=== PATIENT | female | born 1950 | race Caucasian/White ===

== ENCOUNTER 2018-03-11 18:29 | Inpatient (IN) | payer MEDICARE, BC ==
--- NOTE | 2018-03-11 18:32 | ED Physician Chart ---
ED Chief Complaint/HPI - Patient Information Date Seen:: 03/11/18 Time Seen:: 18:15 Chief Complaint:: Agitation History of Present Illness:: onset x 2 days of agitation, and aggressive behavior; no report of trauma, SIs, H/As, S/T, neck pain, cough, C/P, SOB, Abd. Pain, A/N/V/D/C, fever, chills, or urinary s/s Historian:: Patient, EMS Review:: Nurse's Note Reviewed, Old Chart Reviewed, EMS run form Reviewed ED Review of Systems - Review of Systems General/Constitutional: No fever, No chills, No weight loss, No weakness, No diaphoresis, No edema, No loss of appetite Skin: No skin lesions, No rash, No bruising Head: No headache, No light-headedness Eyes: No loss of vision, No pain, No diplopia ENT: No earache, No nasal drainage, No sore throat, No tinnitus Neck: No neck pain, No swelling, No thyromegaly, No stiffness, No mass noted Cardio Vascular: No chest pain, No palpitations, No PND, No orthopnea, No edema Pulmonary: No SOB, No cough, No sputum, No wheezing GI: No nausea, No vomiting, No diarrhea, No pain, No melena, No hematochezia, No constipation, No hematemesis G/U: No dysuria, No frequency, No hematuria, No nacturia Sizer Hand: No vaginal discharge, No abnormal vaginal bleed, No contraction Musculoskeletal: No bone or joint pain, No back pain, No muscle pain Endocrine: No polyuria, No polydipsia Psychiatric: Prior psych history, Depression, Anxiety, No suicidal ideation, No homicidal ideation, No auditory hallucination, No visual hallucination Hematopoietic: No bruising, No lymphadenopathy Allergic/Immuno: No urticaria, No angioedema Neurological: No syncope, No focal symptoms, No weakness, No paresthesia, No headache, No seizure, No dizziness, Confusion, No vertigo ED Past Medical History - Past Medical History Obtainable: Yes Past Medical History: HTN, Dyslipidemia, Thyroid disorder, Arthritis, Dementia Family History: HTN Social History: Non Smoker, No Alcohol, No Drug Use, Single, Care Facility Surgical History: None Psychiatricy History: Depression, Bipolar, Dementia Medication: Reviewed Family Medical History - Family Member Mother History Unknown: Yes ED Physical Exam - Physical Examination General/Constitutional: Awake, Well-developed, well-nourished, Alert, No distress, GCS 15, Non-toxic appearing, Ambulatory Head: Atraumatic Eyes: Lids, conjuctiva normal, PERRL, EOMI Skin: Nl inspection, No rash, No skin lesions, No ecchymosis, Well hydrated, No lymphadenopathy ENMT: External ears, nose nl, TM canals nl, Nasal exam nl, Lips, teeth, gums nl , Oropharynx nl, Tonsils nl Neck: Nontender, Full ROM w/o pain, No JVD, No nuchal rigidity, No bruit, No mass, No stridor Respiratory: Nl effort/Exclusion, Clear to Auscultation, No Wheeze/Rhonchi/Rales Cardio Vascular: RRR, No murmur, gallop, rubs, NL S1 S2, Carotid/Femoral/Distal pulses equal bilaterally GI: No tenderness/rebounding/guarding, No organomegaly, No hernia, Normal BS's, Nondistended, No mass/bruits, No McBurney tenderness : No CVA tenderness Extremities: No tenderness or effusion, Full ROM, normal strength in all extremities, No edema, Normal digits & nails Neuro/Psych: Alert/oriented, DTR's symmetric, Normal sensory exam, Normal motor strength, Judgement/insight normal, Mood normal, Normal gait, No focal deficits Other Neuro/Psych comments:: + Psychomotor Agitation; no SIs; Mood/Affect: Labile Misc: Normal back, No paraspinal tenderness ED Labs/Radiology/EKG Results - Lab Results Comments:: Reviewed - EKG Interpretations EKG Time:: 19:59 Rate & Rhythm: 81; NSR Comments:: RAD; non-specific st-t changes ED Septic Shock - . Is Septic Shock (SBP<90, OR Lactate>4 mmol\L) present?: No ED Reassessment (Disposition) - Reassessment Reassessment Condition:: Improved - Diagnosis Diagnosis:: Agitation; Medical Clearance; Anemia; Dementia; Bipolar Disorder - Aftercare/Follow up Instructions Aftercare/Follow-Up Instructions:: Counseled pt regarding lab results/diagnosis & need follow up, Counseled pt & family regarding lab results/diagnosis & need follow up - Patient Disposition Discharge/Transfer:: Acute Care w/in this hosp Admitted to:: [facility] Condition at Disposition:: Stable, Improved
[2018-03-11] MEDS ORDERED: Haloperidol Lactate 5 mg/mL 1mL Vial IM STA ×2 (18:44→21:01)
[2018-03-11] MEDS ORDERED: Haloperidol Lactate 5 mg/mL 1mL Vial ONE ×2 (18:57→21:22)
[2018-03-11 21:06] LABS: ACETAMINOPHEN < 10.0 ug/mL (10.0-30.0); ALB/GLOB RATIO 1.6 (1.0-1.8); ALBUMIN 3.5 gm/dL (3.7-5.3); ALKALINE PHOSPHATASE 102 U/L (34-104); ANION GAP 12.7 (7.0-16.0); BILIRUBIN,TOTAL 0.4 mg/dL (0.3-1.0); BUN - UREA NITROGEN 17 mg/dL (7-25); CALCIUM SERUM 9.1 mg/dL (8.6-10.3); CARBON DIOXIDE 30.5 mEq/L (21.0-31.0); CHLORIDE 103 mEq/L (98-107); CHOLESTEROL 171 mg/dL (<200); CREATININE - SERUM 1.1 mg/dL (0.6-1.2); GFR AFRICAN-AMERICAN > 60.0 ml/min (>90); GFR NON AFRICAN-AMERICAN 52.5 ml/min; GLUCOSE 102 mg/dL (70-105); HDL -HIGH DENSITY LIPOPROTEIN 61 mg/dL (23-92); POTASSIUM SERUM 4.2 mEq/L (3.5-5.1); SALICYLATES (ASPIRIN) < 25.0 mg/L (30.0-100.0); SGOT 28 U/L (13-39); SGPT/ALT 20 U/L (7-52); SODIUM SERUM 142 mEq/L (136-145); TOTAL PROTEIN,SERUM 5.7 gm/dL (6.0-8.3); TRIGLYCERIDES 73 mg/dL (<150)
[2018-03-11 21:15] LABS: HEMATOCRIT 34.9 % (41.0-60); HEMOGLOBIN 11.9 gm/dL (12-16); MEAN CELL VOLUME 93.1 fl (81-100); RED BLOOD COUNT 3.75 Mil/cmm (3.80-5.20); WHITE BLOOD COUNT 8.5 Th/cmm (4.8-10.8)
[2018-03-11 21:16] LABS: % LYMPHOCYTES 17.5 % (20.0-50.0); % MONOCYTES 6.2 % (2.0-10.0); % NEUTROPHILS 74.3 % (40.0-80.0); MEAN CORPUSCULAR HEMOGLOBIN 31.7 pg (27.0-31.0); MEAN PLATELET VOLUME 7.5 fl; PLATELET COUNT 356 Th/cmm (150-400); RED CELL DISTRIBUTION WIDTH 12.2 % (11.5-20.0)
[2018-03-11 23:30] VITALS: BP 146/73
[2018-03-11] MEDS ORDERED: Non-Formulary Item 1 EA (Acetaminophen [Pain Reliever] 650 MG) PO PRN (23:54)
[2018-03-12] MEDS: Levothyroxine 0.05 Mg Tab PO SCH (06:50)
[2018-03-12] MEDS: Pantoprazole 40 mg EC Tab PO SCH (08:33)
--- NOTE | 2018-03-12 08:53 | History and Physical ---
History of Present Illness - HPI Chief Complaint: Agitation HPI: 67 y/o female who presents to [facility] ER for increased agitation noted at the SNF. Patient was found to have increased aggressive behavior in the past 2 days. She was subsequently sent for further evaluation and treatment. Patient has a previous medical history of HTN, Dyslipidemia, Thyroid disorder, Arthritis, Dementia, Depression, Bipolar disorder. Initial Labwork revealed the following ... WBC 8.5 H/H 11.9/34.9 plat 356K Na 142 K 4.2 Bun/Cr 17/1.1 glu 102 Patient was subsequently admitted to [facility] for further evaluation and treatment. Vital Signs: Last Vital Signs Temp 98.6 F 03/11/18 23:25 Pulse 69 03/11/18 23:25 Resp 20 03/11/18 23:25 BP 146/73 03/11/18 23:30 Pulse Ox 96 03/11/18 23:25 Past Medical History Cardiovascular: Report: HTN, Hyperlipidemia Pulmonary: Report: No Pertinent Hx FLOUR BLENDER: Report: Dementia GI: Report: No Pertinent Hx Psych: Report: Bipolar, Depression Musculoskeletal: Report: Osteoarthritis Infectious Disease: Report: No Pertinent Hx Renal/: Report: No Pertinent Hx Endocrine: Report: Hypothyroidism Dermatology: Report: No Pertinent Hx - Past Surgical History Past Surgical History: No pertinent Hx Family Medical History - Family Member Mother History Unknown: Yes Social History Smoke: No Alcohol: None Drugs: None Lives: [facility]dc - Medications Home Medications: Home Medication Medication Instructions Recorded Type Acetaminophen [Pain Reliever] 650 mg PO Q8H PRN 03/11/18 History Atorvastatin Calcium [Lipitor] 10 mg PO HS 03/11/18 History Cholecalciferol (Vitamin D3) 5,000 unit PO DAILY 03/11/18 History [Vitamin D3] Folic Acid [Folate*] 1 mg PO DAILY 03/11/18 History Levothyroxine Sodium [Levoxyl] 50 mcg PO DAILY 03/11/18 History Lorazepam [Ativan] 0.5 mg PO Q8H PRN 03/11/18 History Melatonin 5 mg PO HS 03/11/18 History Pantoprazole [Protonix] 40 mg PO DAILY 03/11/18 History QUEtiapine Fumarate [SEROquel] 25 mg PO HS 03/11/18 History Sennosides A and B [Senna] 2 tab PO HS 03/11/18 History Tramadol HCl [Ultram] 50 mg PO BID 03/11/18 History Zolpidem Tartrate [Ambien] 5 mg PO HS 03/11/18 History Acetaminophen [Tylenol] 2 tab PO Q8HR PRN 03/12/18 History Aspirin [Ecotrin] 81 mg PO DAILY 03/12/18 History - Allergies Allergies/Adverse Reactions: Allergies Allergy/AdvReac Type Severity Reaction Status Date / Time No Known Allergies Allergy Verified 03/11/18 18:32 Review of Systems - Review of Systems Constitutional: Report: No Significant Eyes: Report: No Significant ENT: Report: No Significant Respiratory: Report: No Significant Cardiovascular: Report: No Significant Gastrointestinal: Report: No Significant Genitourinary: Report: No Significant Musculoskeletal: Report: No Significant Skin: Report: No Significant Neurological: Report: Confusion Physical Exam - Physical Exam HEENT: Report: Ears Nose Throat within normal limits, Pharnyx within normal limits Neck: Report: Within normal limits Cardiovascular Systems: Report: +s1/s2 noted, Regular, Rate and Rhythm Respiratory: Report: Breath Sounds are within normal limits, Clear to Auscultation of lung marks Abdomen: Report: Non-tender to palpation Back: Report: Inspection of back is within normal limits. Extremities: Report: Non-tender to palpation. Skin: Report: Color of skin is within normal limits Neuro/Psych: Report: Mood affect is within normal limits, A+Ox3 - Lab Results All Lab Results last 24 hours: Laboratory Results - last 24 hr 03/11/18 03/11/18 03/11/18 20:44 20:44 20:44 WBC 8.5 RBC 3.75 L Hgb 11.9 L Hct 34.9 L MCV 93.1 MCH 31.7 H MCHC Differential 34.0 RDW 12.2 Plt Count 356 MPV 7.5 Neutrophils % 74.3 Lymphocytes % 17.5 L Monocytes % 6.2 Eosinophils % 1.0 Basophils % 1.0 Sodium 142 Potassium 4.2 Chloride 103 Carbon Dioxide 30.5 Anion Gap 12.7 BUN 17 Creatinine 1.1 Est GFR ( Amer) > 60.0 Est GFR (Non-Af Amer) 52.5 BUN/Creatinine Ratio 15.5 Glucose 102 Calcium 9.1 Total Bilirubin 0.4 AST 28 ALT 20 Alkaline Phosphatase 102 Troponin I Total Protein 5.7 L Albumin 3.5 L Globulin 2.2 Albumin/Globulin Ratio 1.6 Triglycerides 73 Cholesterol 171 LDL Cholesterol Direct 104 HDL Cholesterol 61 TSH 4.32 Salicylates < 25.0 L Acetaminophen < 10.0 L Ethyl Alcohol < 10 03/11/18 20:44 WBC RBC Hgb Hct MCV MCH MCHC Differential RDW Plt Count MPV Neutrophils % Lymphocytes % Monocytes % Eosinophils % Basophils % Sodium Potassium Chloride Carbon Dioxide Anion Gap BUN Creatinine Est GFR ( Amer) Est GFR (Non-Af Amer) BUN/Creatinine Ratio Glucose Calcium Total Bilirubin AST ALT Alkaline Phosphatase Troponin I 0.01 Total Protein Albumin Globulin Albumin/Globulin Ratio Triglycerides Cholesterol LDL Cholesterol Direct HDL Cholesterol TSH Salicylates Acetaminophen Ethyl Alcohol - Assessment Assessment: psychosis HTN Dyslipidemia Thyroid disorder Arthritis Dementia Bipolar disorder depression - Plan Plan: admit to [facility]
--- NOTE | 2018-03-12 12:18 | Psychiatric Evaluation ---
DATE OF SERVICE: 03/11/2018 IDENTIFYING DATA: The patient is a 67-year-old woman, resident of [place]. Information obtained by directly interviewing the patient as well as reviewing the admission papers and they are reliable. JUSTIFICATION FOR HOSPITALIZATION: The patient is admitted here for agitation and psychosis. CHIEF COMPLAINT: "I don't need to be here." HISTORY OF PRESENT ILLNESS: This is the first psychiatric hospitalization to [facility] for this patient who is a resident of the [place]. The patient is reported to have been out of control, screaming and yelling and has not been willing to comply with the treatment. When I tried to interview the patient, the patient has been very sedated and because of the fact that she has not slept all night, screaming and yelling. The patient has to be given a dose of medications this morning and the patient is sleeping at this time and is not able to provide much of information. PAST PSYCHIATRIC HISTORY: Details are not known. MEDICAL HISTORY: Physical examination is requested to be done by Dr. Perez. SUBSTANCE ABUSE HISTORY: None. PHYSICAL OR SEXUAL ABUSE HISTORY: Details are not known. MENTAL STATUS EXAMINATION: The patient is a 67-year-old woman looking her stated age, superficially cooperative. Eye contact is poor. Mood is noted to be irritable. Affect is constricted. Insight and judgment at this time are noted to be still impaired. Impulse control is noted to be poor. Coping skills are also noted to be very poor. The patient has been having difficult time to cope with the stress. The patient is alert and awake, but the patient is not able to participate in the interview. The patient coping skills at this time are noted to be very poor. DIAGNOSTIC IMPRESSION: AXIS I: 1A: Psychotic disorder, not otherwise specified. 1B: Dementia and behavioral change, secondary trait. AXIS II: None. AXIS III: As per Dr. Perez. IMMEDIATE TREATMENT PLAN: The patient is going to be observed on inpatient unit, provided with supportive psychotherapy. Once stabilized, the patient is going to be discharged to [facility] to be followed up on an outpatient basis. JOB# [id number]
[2018-03-12] MEDS: Atorvastatin Calcium 10 MG TAB PO SCH (20:32)
[2018-03-12] MEDS ORDERED: Non-Formulary Item 1 EA (Melatonin [Melatonin] 5 MG) PO SCH (21:00)
[2018-03-13] MEDS: Levothyroxine 0.05 Mg Tab PO SCH (06:39)
[2018-03-13] MEDS: Pantoprazole 40 mg EC Tab PO SCH (08:22)
--- NOTE | 2018-03-13 08:33 | General Progress Note ---
Subjective - Review of Systems Service Date: 03/13/18 Subjective: Patient awake, alert, no acute distress. VS T97.6 P64 R18 BP 121/68 Objective - Results Result Diagrams: 03/11/18 20:44 03/11/18 20:44 Recent Labs: Laboratory Last Values WBC 8.5 Th/cmm (4.8-10.8) 03/11/18 20:44 RBC 3.75 Mil/cmm (3.80-5.20) L 03/11/18 20:44 Hgb 11.9 gm/dL (12-16) L 03/11/18 20:44 Hct 34.9 % (41.0-60) L 03/11/18 20:44 MCV 93.1 fl (81-100) 03/11/18 20:44 MCH 31.7 pg (27.0-31.0) H 03/11/18 20:44 MCHC Differential 34.0 pg (28.0-36.0) 03/11/18 20:44 RDW 12.2 % (11.5-20.0) 03/11/18 20:44 Plt Count 356 Th/cmm (150-400) 03/11/18 20:44 MPV 7.5 fl 03/11/18 20:44 Neutrophils % 74.3 % (40.0-80.0) 03/11/18 20:44 Lymphocytes % 17.5 % (20.0-50.0) L 03/11/18 20:44 Monocytes % 6.2 % (2.0-10.0) 03/11/18 20:44 Eosinophils % 1.0 % (0.0-5.0) 03/11/18 20:44 Basophils % 1.0 % (0.0-2.0) 03/11/18 20:44 Sodium 142 mEq/L (136-145) 03/11/18 20:44 Potassium 4.2 mEq/L (3.5-5.1) 03/11/18 20:44 Chloride 103 mEq/L (98-107) 03/11/18 20:44 Carbon Dioxide 30.5 mEq/L (21.0-31.0) 03/11/18 20:44 Anion Gap 12.7 (7.0-16.0) 03/11/18 20:44 BUN 17 mg/dL (7-25) 03/11/18 20:44 Creatinine 1.1 mg/dL (0.6-1.2) 03/11/18 20:44 Est GFR ( Amer) > 60.0 ml/min (>90) 03/11/18 20:44 Est GFR (Non-Af Amer) 52.5 ml/min 03/11/18 20:44 BUN/Creatinine Ratio 15.5 03/11/18 20:44 Glucose 102 mg/dL (70-105) 03/11/18 20:44 Calcium 9.1 mg/dL (8.6-10.3) 03/11/18 20:44 Total Bilirubin 0.4 mg/dL (0.3-1.0) 03/11/18 20:44 AST 28 U/L (13-39) 03/11/18 20:44 ALT 20 U/L (7-52) 03/11/18 20:44 Alkaline Phosphatase 102 U/L (34-104) 03/11/18 20:44 Troponin I 0.01 ng/mL (0.01-0.05) 03/11/18 20:44 Total Protein 5.7 gm/dL (6.0-8.3) L 03/11/18 20:44 Albumin 3.5 gm/dL (3.7-5.3) L 03/11/18 20:44 Globulin 2.2 gm/dL 03/11/18 20:44 Albumin/Globulin Ratio 1.6 (1.0-1.8) 03/11/18 20:44 Triglycerides 73 mg/dL (<150) 03/11/18 20:44 Cholesterol 171 mg/dL (<200) 03/11/18 20:44 LDL Cholesterol Direct 104 mg/dL (75-193) 03/11/18 20:44 HDL Cholesterol 61 mg/dL (23-92) 03/11/18 20:44 TSH 4.32 uIU/ml (0.34-5.60) 03/11/18 20:44 Salicylates < 25.0 mg/L (30.0-100.0) L 03/11/18 20:44 Acetaminophen < 10.0 ug/mL (10.0-30.0) L 03/11/18 20:44 Ethyl Alcohol < 10 mg/dL (0-10) 03/11/18 20:44 - Physical Exam Vitals and I&O: Vital Signs Temp 97.6 F 03/13/18 06:37 Pulse 64 03/13/18 06:37 Resp 18 03/13/18 06:37 BP 121/68 03/13/18 06:37 Pulse Ox 95 03/13/18 06:37 Intake & Output 03/12/18 03/13/18 03/13/18 18:59 06:59 18:59 Intake Total 1500 Balance 1500 Intake: Oral 1500 Other: # Voids 4 # Bowel Movements 0 Active Medications: Current Medications Acetaminophen (Tylenol) 650 mg PO Q8HR PRN PRN Reason: for pain/fever >100 Stop: 05/11/18 04:37 Aspirin (Ecotrin) 81 mg PO DAILY [facility] Stop: 05/11/18 08:59 Last Admin: 03/13/18 08:22 Dose: 81 mg Atorvastatin Calcium (Lipitor) 10 mg PO HS [facility]; Protocol Stop: 05/11/18 20:59 Last Admin: 03/12/18 20:32 Dose: 10 mg Cholecalciferol (Vitamin D3) 5,000 iu PO DAILY [facility] Stop: 05/11/18 08:59 Last Admin: 03/13/18 08:22 Dose: 5,000 iu Folic Acid (Folate) 1 mg PO DAILY [facility] Stop: 05/11/18 08:59 Last Admin: 03/13/18 08:22 Dose: 1 mg Levothyroxine Sodium (Synthroid) 0.05 mg PO DAILY@0730 [facility] Stop: 05/11/18 07:29 Last Admin: 03/13/18 06:39 Dose: 0.05 mg Lorazepam (Ativan) 0.5 mg PO Q8H PRN; Protocol PRN Reason: Anxiety Stop: 05/10/18 23:48 Last Admin: 03/13/18 08:22 Dose: 0.5 mg Pantoprazole Sodium (Protonix) 40 mg PO DAILY [facility] Stop: 05/11/18 08:59 Last Admin: 03/13/18 08:22 Dose: 40 mg Quetiapine Fumarate (Seroquel) 25 mg PO HS [facility]; Protocol Stop: 05/11/18 20:59 Last Admin: 03/12/18 20:32 Dose: 25 mg Senna (Senna) 17.2 mg PO HS [facility] Stop: 05/11/18 20:59 Last Admin: 03/12/18 20:35 Dose: 17.2 mg Tramadol HCl (Ultram) 50 mg PO BID [facility] Stop: 05/11/18 08:59 Last Admin: 03/13/18 08:22 Dose: 50 mg Zolpidem Tartrate (Ambien) 5 mg PO [facility] Stop: 05/11/18 20:59 Last Admin: 03/12/18 20:32 Dose: 5 mg General: Alert, Oriented x3, No acute distress HEENT: Atraumatic, PERRLA, EOMI Neck: Supple Cardiovascular: Regular rate, Normal S1, Normal S2 Lungs: Clear to auscultation Extremities: no Clubbing, no Cyanosis, no Edema Assessment/Plan - Assessment Assessment: psychosis HTN Dyslipidemia Thyroid disorder Arthritis Dementia Bipolar disorder depression - Plan Plan: continue current treatment.
--- NOTE | 2018-03-13 20:30 | Consultation ---
DATE OF CONSULTATION: 03/13/2018 REFERRING PHYSICIAN: Trinh Cruz M.D. TYPE OF CONSULTATION: Psychology. HISTORY OF PRESENT ILLNESS: The patient is a 67-year-old female. The patient is a resident of [facility]. The following is by record review and by patient's self report. At the time of the clinical interview, the patient's family is visiting. The patient is being admitted for agitation and possible psychosis. Upon interview, the patient states that she does not need to be in the hospital. According to the staff at the patient's facility, the patient had become out of control with screaming and yelling episodes as well as noncompliant with treatment. The patient did not answer questions about suicidal ideation, plan or intention. The patient does not provide much information and appears to be confused. The patient seems to be withdrawn and guarded. PAST MEDICAL HISTORY: Please see history and physical by Dr. Perez. PAST PSYCHIATRIC HISTORY: Records are unavailable. Details are unknown. SUBSTANCE ABUSE HISTORY: The patient did not answer these questions. PSYCHOSOCIAL HISTORY: The patient did not answer these questions. The patient did not answer questions about occupational or educational history or druze affiliation. She did not answer the question about physical or sexual abuse history or current legal problems. The patient has family that is involved in her care and are present at the time of the admission to the geropsychiatric unit. MENTAL STATUS EXAMINATION: The patient appears to be her stated age. The patient's attitude is guarded. Eye contact is poor. Speech is spontaneous and loud. Mood is irritable. Affect is constricted. Thought process shows to be concrete with poor fund of knowledge. The patient denied any auditory or visual hallucinations. The patient did not answer questions about suicidal ideation, plan, or intention. The patient's behavior has been wandering the unit. The patient seems to be confused at times and is asking irrelevant questions. Impulse control is limited. Concentration is poor. The patient did not participate in the memory assessment. Sensorium is alert and oriented to self and place only. The patient did not participate in the interpretation of proverbs or the rest of the clinical interview. Insight is poor. Judgment is compromised. DIAGNOSTIC IMPRESSION: AXIS I: 1. Psychotic disorder, not otherwise specified. 2. Dementia with behavioral disturbance. AXIS II: Deferred. AXIS III: Per Dr. Perez. TREATMENT PLAN: The patient has been seen by Dr. Cruz for psychiatric evaluation and for the management of the patient's psychotropic medications. We will provide supportive psychotherapy to include reality orientation, differentiation, and integration. We will provide coping strategies for phase of life issues. We will provide motivational enhancement for the patient to become compliant and stay compliant with all aspects of her care and treatment. We will encourage the patient to be able to demonstrate emotional and self-regulation prior to her discharge. We will provide daily opportunities for the patient to verbally contract for safety. We will continue to provide supportive therapy including problem solving skills and solution focused therapy. We will also provide family education if that is presented and requested by her family. Thank you, Dr. Cruz, for this consult and the opportunity to participate in this patient's care. JOB# [id number] MTDD
[2018-03-13] MEDS: Atorvastatin Calcium 10 MG TAB PO SCH (21:24)
--- NOTE | 2018-03-14 05:53 | General Progress Note ---
Subjective - Review of Systems Service Date: 03/14/18 Subjective: Patient awake, alert, no acute distress. VS T97.8 P85 R18 BP 129/80 Objective - Results Result Diagrams: 03/11/18 20:44 03/11/18 20:44 Recent Labs: Laboratory Last Values WBC 8.5 Th/cmm (4.8-10.8) 03/11/18 20:44 RBC 3.75 Mil/cmm (3.80-5.20) L 03/11/18 20:44 Hgb 11.9 gm/dL (12-16) L 03/11/18 20:44 Hct 34.9 % (41.0-60) L 03/11/18 20:44 MCV 93.1 fl (81-100) 03/11/18 20:44 MCH 31.7 pg (27.0-31.0) H 03/11/18 20:44 MCHC Differential 34.0 pg (28.0-36.0) 03/11/18 20:44 RDW 12.2 % (11.5-20.0) 03/11/18 20:44 Plt Count 356 Th/cmm (150-400) 03/11/18 20:44 MPV 7.5 fl 03/11/18 20:44 Neutrophils % 74.3 % (40.0-80.0) 03/11/18 20:44 Lymphocytes % 17.5 % (20.0-50.0) L 03/11/18 20:44 Monocytes % 6.2 % (2.0-10.0) 03/11/18 20:44 Eosinophils % 1.0 % (0.0-5.0) 03/11/18 20:44 Basophils % 1.0 % (0.0-2.0) 03/11/18 20:44 Sodium 142 mEq/L (136-145) 03/11/18 20:44 Potassium 4.2 mEq/L (3.5-5.1) 03/11/18 20:44 Chloride 103 mEq/L (98-107) 03/11/18 20:44 Carbon Dioxide 30.5 mEq/L (21.0-31.0) 03/11/18 20:44 Anion Gap 12.7 (7.0-16.0) 03/11/18 20:44 BUN 17 mg/dL (7-25) 03/11/18 20:44 Creatinine 1.1 mg/dL (0.6-1.2) 03/11/18 20:44 Est GFR ( Amer) > 60.0 ml/min (>90) 03/11/18 20:44 Est GFR (Non-Af Amer) 52.5 ml/min 03/11/18 20:44 BUN/Creatinine Ratio 15.5 03/11/18 20:44 Glucose 102 mg/dL (70-105) 03/11/18 20:44 Calcium 9.1 mg/dL (8.6-10.3) 03/11/18 20:44 Total Bilirubin 0.4 mg/dL (0.3-1.0) 03/11/18 20:44 AST 28 U/L (13-39) 03/11/18 20:44 ALT 20 U/L (7-52) 03/11/18 20:44 Alkaline Phosphatase 102 U/L (34-104) 03/11/18 20:44 Troponin I 0.01 ng/mL (0.01-0.05) 03/11/18 20:44 Total Protein 5.7 gm/dL (6.0-8.3) L 03/11/18 20:44 Albumin 3.5 gm/dL (3.7-5.3) L 03/11/18 20:44 Globulin 2.2 gm/dL 03/11/18 20:44 Albumin/Globulin Ratio 1.6 (1.0-1.8) 03/11/18 20:44 Triglycerides 73 mg/dL (<150) 03/11/18 20:44 Cholesterol 171 mg/dL (<200) 03/11/18 20:44 LDL Cholesterol Direct 104 mg/dL (75-193) 03/11/18 20:44 HDL Cholesterol 61 mg/dL (23-92) 03/11/18 20:44 TSH 4.32 uIU/ml (0.34-5.60) 03/11/18 20:44 Salicylates < 25.0 mg/L (30.0-100.0) L 03/11/18 20:44 Acetaminophen < 10.0 ug/mL (10.0-30.0) L 03/11/18 20:44 Ethyl Alcohol < 10 mg/dL (0-10) 03/11/18 20:44 RPR NONREACTIVE (NONREACTIVE) 03/11/18 20:44 - Physical Exam Vitals and I&O: Vital Signs Temp 97.8 F 03/13/18 20:00 Pulse 85 03/13/18 20:00 Resp 18 03/13/18 20:00 BP 129/80 03/13/18 20:00 Pulse Ox 98 03/13/18 20:00 Intake & Output 03/13/18 03/13/18 03/14/18 06:59 18:59 06:59 Intake Total 1200 Balance 1200 Intake: Oral 1200 Other: # Voids 3 # Bowel Movements 0 Active Medications: Current Medications Acetaminophen (Tylenol) 650 mg PO Q8HR PRN PRN Reason: for pain/fever >100 Stop: 05/11/18 04:37 Aspirin (Ecotrin) 81 mg PO DAILY [facility] Stop: 05/11/18 08:59 Last Admin: 03/13/18 08:22 Dose: 81 mg Atorvastatin Calcium (Lipitor) 10 mg PO [facility]; Protocol Stop: 05/11/18 20:59 Last Admin: 03/13/18 21:24 Dose: 10 mg Cholecalciferol (Vitamin D3) 5,000 iu PO DAILY [facility] Stop: 05/11/18 08:59 Last Admin: 03/13/18 08:22 Dose: 5,000 iu Folic Acid (Folate) 1 mg PO DAILY [facility] Stop: 05/11/18 08:59 Last Admin: 03/13/18 08:22 Dose: 1 mg Levothyroxine Sodium (Synthroid) 0.05 mg PO DAILY@0730 [facility] Stop: 05/11/18 07:29 Last Admin: 03/13/18 06:39 Dose: 0.05 mg Lorazepam (Ativan) 0.5 mg PO Q8H PRN; Protocol PRN Reason: Anxiety Stop: 05/10/18 23:48 Last Admin: 03/13/18 16:46 Dose: 0.5 mg Pantoprazole Sodium (Protonix) 40 mg PO DAILY [facility] Stop: 05/11/18 08:59 Last Admin: 03/13/18 08:22 Dose: 40 mg Quetiapine Fumarate (Seroquel) 25 mg PO [facility]; Protocol Stop: 05/11/18 20:59 Last Admin: 03/13/18 21:24 Dose: 25 mg Senna (Senna) 17.2 mg PO HS [facility] Stop: 05/11/18 20:59 Last Admin: 03/13/18 21:24 Dose: 17.2 mg Tramadol HCl (Ultram) 50 mg PO BID [facility] Stop: 05/11/18 08:59 Last Admin: 03/13/18 16:45 Dose: 50 mg Zolpidem Tartrate (Ambien) 5 mg PO HS [facility] Stop: 05/11/18 20:59 Last Admin: 03/13/18 21:24 Dose: 5 mg General: Alert, Oriented x3, No acute distress HEENT: Atraumatic, PERRLA, EOMI Neck: Supple Cardiovascular: Regular rate, Normal S1, Normal S2 Lungs: Clear to auscultation Extremities: no Clubbing, no Cyanosis, no Edema Assessment/Plan - Assessment Assessment: psychosis HTN Dyslipidemia Thyroid disorder Arthritis Dementia Bipolar disorder depression - Plan Plan: continue current treatment.
[2018-03-14] MEDS: Levothyroxine 0.05 Mg Tab PO SCH (06:43)
[2018-03-14] MEDS: Pantoprazole 40 mg EC Tab PO SCH (09:01)
--- NOTE | 2018-03-14 09:27 | Progress Notes ---
DATE: 03/13/2018 PSYCHIATRIC PROGRESS NOTE SUBJECTIVE: Staff was spoken to. The patient is interviewed. Mood is noted to be irritable. Affect is constricted. The patient has been reported to have been extremely irritable and angry and the patient has to be given a dose of Ativan to calm her down. The patient is currently on Seroquel 25 mg at bedtime. She continues to be very paranoid. The patient has been screaming and yelling. PLAN: Continue the patient with supportive therapy. I encouraged the patient to verbalize the concerns rather than to act out. JOB# [id number]
--- NOTE | 2018-03-14 17:10 | Progress Notes ---
DATE: 03/14/2018 SUBJECTIVE: Staff was spoken to. The patient is interviewed. Mood is noted to be irritable. The patient is confused and demented and the patient has not been making much sense. The patient, however, has been noted to be very sleepy. The patient is only on 25 mg of the Seroquel at night time. No side effects to the medications are noted. ASSESSMENT: The patient is still grossly psychotic. PLAN: To closely monitor the patient in view of the sedation. I am holding off in increasing the dose on the medication. JOB# [id number]
[2018-03-14] MEDS: Atorvastatin Calcium 10 MG TAB PO SCH (20:26)
--- NOTE | 2018-03-15 05:28 | General Progress Note ---
Subjective - Review of Systems Service Date: 03/15/18 Subjective: Patient awake, alert, no acute distress. VS T97.4 P90 R19 BP 119/72 Objective - Results Result Diagrams: 03/11/18 20:44 03/11/18 20:44 Recent Labs: Laboratory Last Values WBC 8.5 Th/cmm (4.8-10.8) 03/11/18 20:44 RBC 3.75 Mil/cmm (3.80-5.20) L 03/11/18 20:44 Hgb 11.9 gm/dL (12-16) L 03/11/18 20:44 Hct 34.9 % (41.0-60) L 03/11/18 20:44 MCV 93.1 fl (81-100) 03/11/18 20:44 MCH 31.7 pg (27.0-31.0) H 03/11/18 20:44 MCHC Differential 34.0 pg (28.0-36.0) 03/11/18 20:44 RDW 12.2 % (11.5-20.0) 03/11/18 20:44 Plt Count 356 Th/cmm (150-400) 03/11/18 20:44 MPV 7.5 fl 03/11/18 20:44 Neutrophils % 74.3 % (40.0-80.0) 03/11/18 20:44 Lymphocytes % 17.5 % (20.0-50.0) L 03/11/18 20:44 Monocytes % 6.2 % (2.0-10.0) 03/11/18 20:44 Eosinophils % 1.0 % (0.0-5.0) 03/11/18 20:44 Basophils % 1.0 % (0.0-2.0) 03/11/18 20:44 Sodium 142 mEq/L (136-145) 03/11/18 20:44 Potassium 4.2 mEq/L (3.5-5.1) 03/11/18 20:44 Chloride 103 mEq/L (98-107) 03/11/18 20:44 Carbon Dioxide 30.5 mEq/L (21.0-31.0) 03/11/18 20:44 Anion Gap 12.7 (7.0-16.0) 03/11/18 20:44 BUN 17 mg/dL (7-25) 03/11/18 20:44 Creatinine 1.1 mg/dL (0.6-1.2) 03/11/18 20:44 Est GFR ( Amer) > 60.0 ml/min (>90) 03/11/18 20:44 Est GFR (Non-Af Amer) 52.5 ml/min 03/11/18 20:44 BUN/Creatinine Ratio 15.5 03/11/18 20:44 Glucose 102 mg/dL (70-105) 03/11/18 20:44 Calcium 9.1 mg/dL (8.6-10.3) 03/11/18 20:44 Total Bilirubin 0.4 mg/dL (0.3-1.0) 03/11/18 20:44 AST 28 U/L (13-39) 03/11/18 20:44 ALT 20 U/L (7-52) 03/11/18 20:44 Alkaline Phosphatase 102 U/L (34-104) 03/11/18 20:44 Troponin I 0.01 ng/mL (0.01-0.05) 03/11/18 20:44 Total Protein 5.7 gm/dL (6.0-8.3) L 03/11/18 20:44 Albumin 3.5 gm/dL (3.7-5.3) L 03/11/18 20:44 Globulin 2.2 gm/dL 03/11/18 20:44 Albumin/Globulin Ratio 1.6 (1.0-1.8) 03/11/18 20:44 Triglycerides 73 mg/dL (<150) 03/11/18 20:44 Cholesterol 171 mg/dL (<200) 03/11/18 20:44 LDL Cholesterol Direct 104 mg/dL (75-193) 03/11/18 20:44 HDL Cholesterol 61 mg/dL (23-92) 03/11/18 20:44 TSH 4.32 uIU/ml (0.34-5.60) 03/11/18 20:44 Salicylates < 25.0 mg/L (30.0-100.0) L 03/11/18 20:44 Acetaminophen < 10.0 ug/mL (10.0-30.0) L 03/11/18 20:44 Ethyl Alcohol < 10 mg/dL (0-10) 03/11/18 20:44 RPR NONREACTIVE (NONREACTIVE) 03/11/18 20:44 - Physical Exam Vitals and I&O: Vital Signs Temp 97.4 F 03/15/18 05:09 Pulse 90 03/15/18 05:09 Resp 19 03/15/18 05:09 BP 119/72 03/15/18 05:09 Pulse Ox 97 03/15/18 05:09 Intake & Output 03/14/18 03/14/18 03/15/18 06:59 18:59 06:59 Intake Total 240 Balance 240 Intake: Oral 240 Other: # Voids 3 2 # Bowel Movements 0 Active Medications: Current Medications Acetaminophen (Tylenol) 650 mg PO Q8HR PRN PRN Reason: for pain/fever >100 Stop: 05/11/18 04:37 Aspirin (Ecotrin) 81 mg PO DAILY [facility] Stop: 05/11/18 08:59 Last Admin: 03/14/18 09:01 Dose: 81 mg Atorvastatin Calcium (Lipitor) 10 mg PO HS [facility]; Protocol Stop: 05/11/18 20:59 Last Admin: 03/14/18 20:26 Dose: 10 mg Cholecalciferol (Vitamin D3) 5,000 iu PO DAILY [facility] Stop: 05/11/18 08:59 Last Admin: 03/14/18 09:00 Dose: 5,000 iu Folic Acid (Folate) 1 mg PO DAILY [facility] Stop: 05/11/18 08:59 Last Admin: 03/14/18 09:01 Dose: 1 mg Levothyroxine Sodium (Synthroid) 0.05 mg PO DAILY@0730 [facility] Stop: 05/11/18 07:29 Last Admin: 03/14/18 06:43 Dose: 0.05 mg Lorazepam (Ativan) 0.5 mg PO Q8H PRN; Protocol PRN Reason: Anxiety Stop: 05/10/18 23:48 Last Admin: 03/14/18 17:44 Dose: 0.5 mg Pantoprazole Sodium (Protonix) 40 mg PO DAILY [facility] Stop: 05/11/18 08:59 Last Admin: 03/14/18 09:01 Dose: 40 mg Quetiapine Fumarate (Seroquel) 25 mg PO HS [facility]; Protocol Stop: 05/11/18 20:59 Last Admin: 03/14/18 20:27 Dose: 25 mg Senna (Senna) 17.2 mg PO HS [facility] Stop: 05/11/18 20:59 Last Admin: 03/14/18 20:26 Dose: 17.2 mg Tramadol HCl (Ultram) 50 mg PO BID PRN PRN Reason: Pain (Mild) Stop: 05/13/18 16:59 Last Admin: 03/14/18 18:16 Dose: 50 mg Zolpidem Tartrate (Ambien) 5 mg PO HS [facility] Stop: 05/11/18 20:59 Last Admin: 03/14/18 20:27 Dose: 5 mg General: Alert, Oriented x3, No acute distress HEENT: Atraumatic, PERRLA, EOMI Neck: Supple Cardiovascular: Regular rate, Normal S1, Normal S2 Lungs: Clear to auscultation Extremities: no Clubbing, no Cyanosis, no Edema Assessment/Plan - Assessment Assessment: psychosis HTN Dyslipidemia Thyroid disorder Arthritis Dementia Bipolar disorder depression - Plan Plan: continue current treatment. Nutritional Asmnt/Malnutr-PDOC - Dietary Evaluation Malnutrition Findings (Please click <Entered> for more info): Nutritional Asmnt/Malnutrition Start: 03/14/18 11: 45 Text: Status: Complete Freq: Protocol: Document 03/14/18 11:45 VERITO (Rec: 03/14/18 11:50 VERITO HERNANDEZ- [email or web address]) Nutritional Asmnt/Malnutrition Patient General Information Diagnosis psychosis Pertinent Medical Hx/Surgical Hx HTN, depression, dyslipdemia, thyroid, dementia, bipolar Subjective Information Pt sitting chair asleep. Current Diet Order/ Nutrition Support Regular Pertinent Medications lipitor, vit D3, foalte, synthroid, protonix, senna Pertinent Labs 03/11: Na 142, K 4.2, CL 103, CO2 30.5, BUN 17, Cr 1.1, Ca 9 .1, glucose 102 Nutritional Hx/Data Height 1.73 m Height (Calculated Centimeters) 172.7 Current Weight (lbs) 63.503 kg Weight (Calculated Kilograms) 63.5 Weight (Calculated Grams) 82228.9 Body Mass Index (BMI) 21.2 Weight Status Approriate GI Symptoms GI Symptoms None Last BM none noted Cultural/Ethnic/Anglican Belief unknown Usual diet at home regular Skin Integrity/Comment: mere score 16 Current %PO Good (75-100%) Estimated Nutritional Goals BEE in Kcals: Using Current wt Calories/Kcals/Kg 25-30kcals/kg Kcals Calculated 1600-1920kcals/day Protein: Using Current wt Protein g/kg/kg Protein Calculated 64g/day Fluid: ml per MD Nutritional Problem 1. Problem Problem No nutrition diagnosis at this time Intervention/Recommendation Comments Recommend continuing Regular diet with texture per CREDIT REVIEW MANAGER Expected Outcomes/Goals Expected Outcomes/Goals PO intake >75% of meals
[2018-03-15] MEDS: Levothyroxine 0.05 Mg Tab PO SCH (06:30)
[2018-03-15] MEDS: Pantoprazole 40 mg EC Tab PO SCH (10:00)
[2018-03-15] MEDS: Atorvastatin Calcium 10 MG TAB PO SCH (20:07)
--- NOTE | 2018-03-15 20:26 | Progress Notes ---
DATE: 03/15/2018 SUBJECTIVE: Staff was spoken to. The patient is interviewed. Mood is noted to be dysphoric. The patient is actively responding to internal stimuli. Insight and judgment are noted to be still impaired. Impulse control seems to be limited. ASSESSMENT: The patient is still psychotic and confused. PLAN: To continue the patient with the supportive therapy and encouraged the patient to verbalize the concerns rather than to act out. The patient is currently on 25 mg of the Seroquel at night time and the patient is going to be followed up with the supportive therapy. JOB# [id number]
[2018-03-16] MEDS: Levothyroxine 0.05 Mg Tab PO SCH (06:34)
--- NOTE | 2018-03-16 08:11 | General Progress Note ---
Subjective - Review of Systems Service Date: 03/16/18 Subjective: Patient awake, alert, no acute distress. VS T97.4 P74 R18 BP 114/68 Objective - Results Result Diagrams: 03/11/18 20:44 03/11/18 20:44 Recent Labs: Laboratory Last Values WBC 8.5 Th/cmm (4.8-10.8) 03/11/18 20:44 RBC 3.75 Mil/cmm (3.80-5.20) L 03/11/18 20:44 Hgb 11.9 gm/dL (12-16) L 03/11/18 20:44 Hct 34.9 % (41.0-60) L 03/11/18 20:44 MCV 93.1 fl (81-100) 03/11/18 20:44 MCH 31.7 pg (27.0-31.0) H 03/11/18 20:44 MCHC Differential 34.0 pg (28.0-36.0) 03/11/18 20:44 RDW 12.2 % (11.5-20.0) 03/11/18 20:44 Plt Count 356 Th/cmm (150-400) 03/11/18 20:44 MPV 7.5 fl 03/11/18 20:44 Neutrophils % 74.3 % (40.0-80.0) 03/11/18 20:44 Lymphocytes % 17.5 % (20.0-50.0) L 03/11/18 20:44 Monocytes % 6.2 % (2.0-10.0) 03/11/18 20:44 Eosinophils % 1.0 % (0.0-5.0) 03/11/18 20:44 Basophils % 1.0 % (0.0-2.0) 03/11/18 20:44 Sodium 142 mEq/L (136-145) 03/11/18 20:44 Potassium 4.2 mEq/L (3.5-5.1) 03/11/18 20:44 Chloride 103 mEq/L (98-107) 03/11/18 20:44 Carbon Dioxide 30.5 mEq/L (21.0-31.0) 03/11/18 20:44 Anion Gap 12.7 (7.0-16.0) 03/11/18 20:44 BUN 17 mg/dL (7-25) 03/11/18 20:44 Creatinine 1.1 mg/dL (0.6-1.2) 03/11/18 20:44 Est GFR ( Amer) > 60.0 ml/min (>90) 03/11/18 20:44 Est GFR (Non-Af Amer) 52.5 ml/min 03/11/18 20:44 BUN/Creatinine Ratio 15.5 03/11/18 20:44 Glucose 102 mg/dL (70-105) 03/11/18 20:44 Calcium 9.1 mg/dL (8.6-10.3) 03/11/18 20:44 Total Bilirubin 0.4 mg/dL (0.3-1.0) 03/11/18 20:44 AST 28 U/L (13-39) 03/11/18 20:44 ALT 20 U/L (7-52) 03/11/18 20:44 Alkaline Phosphatase 102 U/L (34-104) 03/11/18 20:44 Troponin I 0.01 ng/mL (0.01-0.05) 03/11/18 20:44 Total Protein 5.7 gm/dL (6.0-8.3) L 03/11/18 20:44 Albumin 3.5 gm/dL (3.7-5.3) L 03/11/18 20:44 Globulin 2.2 gm/dL 03/11/18 20:44 Albumin/Globulin Ratio 1.6 (1.0-1.8) 03/11/18 20:44 Triglycerides 73 mg/dL (<150) 03/11/18 20:44 Cholesterol 171 mg/dL (<200) 03/11/18 20:44 LDL Cholesterol Direct 104 mg/dL (75-193) 03/11/18 20:44 HDL Cholesterol 61 mg/dL (23-92) 03/11/18 20:44 TSH 4.32 uIU/ml (0.34-5.60) 03/11/18 20:44 Salicylates < 25.0 mg/L (30.0-100.0) L 03/11/18 20:44 Acetaminophen < 10.0 ug/mL (10.0-30.0) L 03/11/18 20:44 Ethyl Alcohol < 10 mg/dL (0-10) 03/11/18 20:44 RPR NONREACTIVE (NONREACTIVE) 03/11/18 20:44 - Physical Exam Vitals and I&O: Vital Signs Temp 97.4 F 03/16/18 04:46 Pulse 74 03/16/18 04:46 Resp 18 03/16/18 04:46 BP 114/68 03/16/18 04:46 Pulse Ox 94 03/16/18 04:46 Intake & Output 03/15/18 03/16/18 03/16/18 18:59 06:59 18:59 Intake Total 480 Balance 480 Intake: Oral 480 Other: # Voids 2 2 # Bowel Movements 3 Stool Characteristics Soft Soft Brown Active Medications: Current Medications Acetaminophen (Tylenol) 650 mg PO Q8HR PRN PRN Reason: for pain/fever >100 Stop: 05/11/18 04:37 Aspirin (Ecotrin) 81 mg PO DAILY [facility] Stop: 05/11/18 08:59 Last Admin: 03/15/18 10:00 Dose: 81 mg Atorvastatin Calcium (Lipitor) 10 mg PO [facility]; Protocol Stop: 05/11/18 20:59 Last Admin: 03/15/18 20:07 Dose: 10 mg Cholecalciferol (Vitamin D3) 5,000 iu PO DAILY [facility] Stop: 05/11/18 08:59 Last Admin: 03/15/18 10:00 Dose: 5,000 iu Folic Acid (Folate) 1 mg PO DAILY [facility] Stop: 05/11/18 08:59 Last Admin: 03/15/18 10:00 Dose: 1 mg Levothyroxine Sodium (Synthroid) 0.05 mg PO DAILY@0730 [facility] Stop: 05/11/18 07:29 Last Admin: 03/16/18 06:34 Dose: 0.05 mg Lorazepam (Ativan) 0.5 mg PO Q8H PRN; Protocol PRN Reason: Anxiety Stop: 05/10/18 23:48 Last Admin: 03/15/18 18:43 Dose: 0.5 mg Pantoprazole Sodium (Protonix) 40 mg PO DAILY [facility] Stop: 05/11/18 08:59 Last Admin: 03/15/18 10:00 Dose: 40 mg Quetiapine Fumarate (Seroquel) 25 mg PO [facility]; Protocol Stop: 05/11/18 20:59 Last Admin: 03/15/18 20:07 Dose: 25 mg Senna (Senna) 17.2 mg PO HS [facility] Stop: 05/11/18 20:59 Last Admin: 03/15/18 20:07 Dose: Not Given Tramadol HCl (Ultram) 50 mg PO BID PRN PRN Reason: Pain (Mild) Stop: 05/13/18 16:59 Last Admin: 03/14/18 18:16 Dose: 50 mg Zolpidem Tartrate (Ambien) 5 mg PO [facility] Stop: 05/11/18 20:59 Last Admin: 03/15/18 20:07 Dose: 5 mg General: Alert, Oriented x3, No acute distress HEENT: Atraumatic, PERRLA, EOMI Neck: Supple Cardiovascular: Regular rate, Normal S1, Normal S2 Lungs: Clear to auscultation Extremities: no Clubbing, no Cyanosis, no Edema Assessment/Plan - Assessment Assessment: psychosis HTN Dyslipidemia Thyroid disorder Arthritis Dementia Bipolar disorder depression - Plan Plan: continue current treatment. Nutritional Asmnt/Malnutr-PDOC - Dietary Evaluation Malnutrition Findings (Please click <Entered> for more info): Nutritional Asmnt/Malnutrition Start: 03/14/18 11: 45 Text: Status: Complete Freq: Protocol: Document 03/14/18 11:45 VERITO (Rec: 03/14/18 11:50 VERITO HERNANDEZ- FNS1) Nutritional Asmnt/Malnutrition Patient General Information Diagnosis psychosis Pertinent Medical Hx/Surgical Hx HTN, depression, dyslipdemia, thyroid, dementia, bipolar Subjective Information Pt sitting chair asleep. Current Diet Order/ Nutrition Support Regular Pertinent Medications lipitor, vit D3, foalte, synthroid, protonix, senna Pertinent Labs 03/11: Na 142, K 4.2, CL 103, CO2 30.5, BUN 17, Cr 1.1, Ca 9 .1, glucose 102 Nutritional Hx/Data Height 1.73 m Height (Calculated Centimeters) 172.7 Current Weight (lbs) 63.503 kg Weight (Calculated Kilograms) 63.5 Weight (Calculated Grams) 59468.9 Body Mass Index (BMI) 21.2 Weight Status Approriate GI Symptoms GI Symptoms None Last BM none noted Cultural/Ethnic/Voodoo Belief unknown Usual diet at home regular Skin Integrity/Comment: mere score 16 Current %PO Good (75-100%) Estimated Nutritional Goals BEE in Kcals: Using Current wt Calories/Kcals/Kg 25-30kcals/kg Kcals Calculated 1600-1920kcals/day Protein: Using Current wt Protein g/kg/kg Protein Calculated 64g/day Fluid: ml per MD Nutritional Problem 1. Problem Problem No nutrition diagnosis at this time Intervention/Recommendation Comments Recommend continuing Regular diet with texture per CUSTOM FEED MILL OPERATOR Expected Outcomes/Goals Expected Outcomes/Goals PO intake >75% of meals
[2018-03-16] MEDS: Pantoprazole 40 mg EC Tab PO SCH (08:24)
[2018-03-16] MEDS: Atorvastatin Calcium 10 MG TAB PO SCH (21:31)
--- NOTE | 2018-03-17 03:21 | Progress Notes ---
DATE: 03/16/2018 SUBJECTIVE: Staff was spoken to. The patient is interviewed. Mood is noted to be irritable. Affect is constricted. The patient is very dysphoric and has been trying to stand up on the GD chair. The patient's behavior is noted to be extremely bizarre. The patient has been masturbating. The patient could not be contained at a lower level of care. ASSESSMENT: The patient is still grossly psychotic. PLAN: To add the patient with Haldol and increase the dose on the Seroquel and add the Depakote to contain the patient's behavior. JOB# [id number]
[2018-03-17] MEDS: Levothyroxine 0.05 Mg Tab PO SCH (06:51)
--- NOTE | 2018-03-17 08:13 | General Progress Note ---
Subjective - Review of Systems Service Date: 03/17/18 Subjective: Patient awake, alert, no acute distress. VS T97.6 P89 R20 BP 150/89 Objective - Results Result Diagrams: 03/11/18 20:44 03/11/18 20:44 Recent Labs: Laboratory Last Values WBC 8.5 Th/cmm (4.8-10.8) 03/11/18 20:44 RBC 3.75 Mil/cmm (3.80-5.20) L 03/11/18 20:44 Hgb 11.9 gm/dL (12-16) L 03/11/18 20:44 Hct 34.9 % (41.0-60) L 03/11/18 20:44 MCV 93.1 fl (81-100) 03/11/18 20:44 MCH 31.7 pg (27.0-31.0) H 03/11/18 20:44 MCHC Differential 34.0 pg (28.0-36.0) 03/11/18 20:44 RDW 12.2 % (11.5-20.0) 03/11/18 20:44 Plt Count 356 Th/cmm (150-400) 03/11/18 20:44 MPV 7.5 fl 03/11/18 20:44 Neutrophils % 74.3 % (40.0-80.0) 03/11/18 20:44 Lymphocytes % 17.5 % (20.0-50.0) L 03/11/18 20:44 Monocytes % 6.2 % (2.0-10.0) 03/11/18 20:44 Eosinophils % 1.0 % (0.0-5.0) 03/11/18 20:44 Basophils % 1.0 % (0.0-2.0) 03/11/18 20:44 Sodium 142 mEq/L (136-145) 03/11/18 20:44 Potassium 4.2 mEq/L (3.5-5.1) 03/11/18 20:44 Chloride 103 mEq/L (98-107) 03/11/18 20:44 Carbon Dioxide 30.5 mEq/L (21.0-31.0) 03/11/18 20:44 Anion Gap 12.7 (7.0-16.0) 03/11/18 20:44 BUN 17 mg/dL (7-25) 03/11/18 20:44 Creatinine 1.1 mg/dL (0.6-1.2) 03/11/18 20:44 Est GFR ( Amer) > 60.0 ml/min (>90) 03/11/18 20:44 Est GFR (Non-Af Amer) 52.5 ml/min 03/11/18 20:44 BUN/Creatinine Ratio 15.5 03/11/18 20:44 Glucose 102 mg/dL (70-105) 03/11/18 20:44 Calcium 9.1 mg/dL (8.6-10.3) 03/11/18 20:44 Total Bilirubin 0.4 mg/dL (0.3-1.0) 03/11/18 20:44 AST 28 U/L (13-39) 03/11/18 20:44 ALT 20 U/L (7-52) 03/11/18 20:44 Alkaline Phosphatase 102 U/L (34-104) 03/11/18 20:44 Troponin I 0.01 ng/mL (0.01-0.05) 03/11/18 20:44 Total Protein 5.7 gm/dL (6.0-8.3) L 03/11/18 20:44 Albumin 3.5 gm/dL (3.7-5.3) L 03/11/18 20:44 Globulin 2.2 gm/dL 03/11/18 20:44 Albumin/Globulin Ratio 1.6 (1.0-1.8) 03/11/18 20:44 Triglycerides 73 mg/dL (<150) 03/11/18 20:44 Cholesterol 171 mg/dL (<200) 03/11/18 20:44 LDL Cholesterol Direct 104 mg/dL (75-193) 03/11/18 20:44 HDL Cholesterol 61 mg/dL (23-92) 03/11/18 20:44 TSH 4.32 uIU/ml (0.34-5.60) 03/11/18 20:44 Salicylates < 25.0 mg/L (30.0-100.0) L 03/11/18 20:44 Acetaminophen < 10.0 ug/mL (10.0-30.0) L 03/11/18 20:44 Ethyl Alcohol < 10 mg/dL (0-10) 03/11/18 20:44 RPR NONREACTIVE (NONREACTIVE) 03/11/18 20:44 - Physical Exam Vitals and I&O: Vital Signs Temp 97.6 F 03/17/18 06:19 Pulse 89 03/17/18 06:19 Resp 20 03/17/18 06:19 BP 150/89 03/17/18 06:19 Pulse Ox 94 03/17/18 06:19 Intake & Output 03/16/18 03/17/18 03/17/18 18:59 06:59 18:59 Intake Total 1800 240 Balance 1800 240 Intake: Oral 1800 240 Other: # Voids 2 2 # Bowel Movements 0 Stool Characteristics Soft Active Medications: Current Medications Acetaminophen (Tylenol) 650 mg PO Q8HR PRN PRN Reason: for pain/fever >100 Stop: 05/11/18 04:37 Last Admin: 03/16/18 14:18 Dose: 650 mg Aspirin (Ecotrin) 81 mg PO DAILY [facility] Stop: 05/11/18 08:59 Last Admin: 03/16/18 08:24 Dose: 81 mg Atorvastatin Calcium (Lipitor) 10 mg PO HS [facility]; Protocol Stop: 05/11/18 20:59 Last Admin: 03/16/18 21:31 Dose: 10 mg Cholecalciferol (Vitamin D3) 5,000 iu PO DAILY [facility] Stop: 05/11/18 08:59 Last Admin: 03/16/18 08:22 Dose: 5,000 iu Divalproex Sodium (Depakote Dr) 250 mg PO BID [facility]; Protocol Stop: 05/16/18 08:59 Folic Acid (Folate) 1 mg PO DAILY [facility] Stop: 05/11/18 08:59 Last Admin: 03/16/18 08:22 Dose: 1 mg Haloperidol (Haldol) 1 mg PO BID [facility]; Protocol Stop: 05/16/18 08:59 Levothyroxine Sodium (Synthroid) 0.05 mg PO DAILY@0730 [facility] Stop: 05/11/18 07:29 Last Admin: 03/17/18 06:51 Dose: 0.05 mg Lorazepam (Ativan) 0.5 mg PO Q8H PRN; Protocol PRN Reason: Anxiety Stop: 05/10/18 23:48 Last Admin: 03/16/18 14:18 Dose: 0.5 mg Pantoprazole Sodium (Protonix) 40 mg PO DAILY [facility] Stop: 05/11/18 08:59 Last Admin: 03/16/18 08:24 Dose: Not Given Quetiapine Fumarate (Seroquel) 25 mg PO BID [facility]; Protocol Stop: 05/16/18 08:59 Senna (Senna) 17.2 mg PO [facility] Stop: 05/11/18 20:59 Last Admin: 03/16/18 21:30 Dose: 17.2 mg Tramadol HCl (Ultram) 50 mg PO BID PRN PRN Reason: Pain (Mild) Stop: 05/13/18 16:59 Last Admin: 03/14/18 18:16 Dose: 50 mg Zolpidem Tartrate (Ambien) 5 mg PO [facility] Stop: 05/11/18 20:59 Last Admin: 03/16/18 21:31 Dose: 5 mg General: Alert, Oriented x3, No acute distress HEENT: Atraumatic, PERRLA, EOMI Neck: Supple Cardiovascular: Regular rate, Normal S1, Normal S2 Lungs: Clear to auscultation Extremities: no Clubbing, no Cyanosis, no Edema Assessment/Plan - Assessment Assessment: psychosis HTN elevated Dyslipidemia Thyroid disorder Arthritis Dementia Bipolar disorder depression - Plan Plan: continue current treatment. Nutritional Asmnt/Malnutr-PDOC - Dietary Evaluation Malnutrition Findings (Please click <Entered> for more info): Nutritional Asmnt/Malnutrition Start: 03/14/18 11: 45 Text: Status: Complete Freq: Protocol: Document 03/14/18 11:45 VERITO (Rec: 03/14/18 11:50 VERITO HERNANDEZ [email or web address]) Nutritional Asmnt/Malnutrition Patient General Information Diagnosis psychosis Pertinent Medical Hx/Surgical Hx HTN, depression, dyslipdemia, thyroid, dementia, bipolar Subjective Information Pt sitting chair asleep. Current Diet Order/ Nutrition Support Regular Pertinent Medications lipitor, vit D3, foalte, synthroid, protonix, senna Pertinent Labs 03/11: Na 142, K 4.2, CL 103, CO2 30.5, BUN 17, Cr 1.1, Ca 9 .1, glucose 102 Nutritional Hx/Data Height 1.73 m Height (Calculated Centimeters) 172.7 Current Weight (lbs) 63.503 kg Weight (Calculated Kilograms) 63.5 Weight (Calculated Grams) 61939.9 Body Mass Index (BMI) 21.2 Weight Status Approriate GI Symptoms GI Symptoms None Last BM none noted Cultural/Ethnic/Rastafarian Belief unknown Usual diet at home regular Skin Integrity/Comment: mere score 16 Current %PO Good (75-100%) Estimated Nutritional Goals BEE in Kcals: Using Current wt Calories/Kcals/Kg 25-30kcals/kg Kcals Calculated 1600-1920kcals/day Protein: Using Current wt Protein g/kg/kg Protein Calculated 64g/day Fluid: ml per MD Nutritional Problem 1. Problem Problem No nutrition diagnosis at this time Intervention/Recommendation Comments Recommend continuing Regular diet with texture per WOODEN TANK ERECTOR Expected Outcomes/Goals Expected Outcomes/Goals PO intake >75% of meals
[2018-03-17] MEDS: Pantoprazole 40 mg EC Tab PO SCH (08:47)
[2018-03-17] MEDS ORDERED: OLANZapine 5 mg Oral Disintegrating Tab PO SCH (11:30)
[2018-03-17] MEDS: OLANZapine 5 mg Oral Disintegrating Tab PO SCH ×2 (11:33→16:37)
[2018-03-17] MEDS: Atorvastatin Calcium 10 MG TAB PO SCH (20:25)
[2018-03-18] MEDS: Levothyroxine 0.05 Mg Tab PO SCH (06:41)
--- NOTE | 2018-03-18 08:09 | General Progress Note ---
Subjective - Review of Systems Service Date: 03/18/18 Subjective: Patient awake, alert, no acute distress. VS T97.6 P83 R18 BP 116/69 Objective - Results Result Diagrams: 03/11/18 20:44 03/11/18 20:44 Recent Labs: Laboratory Last Values WBC 8.5 Th/cmm (4.8-10.8) 03/11/18 20:44 RBC 3.75 Mil/cmm (3.80-5.20) L 03/11/18 20:44 Hgb 11.9 gm/dL (12-16) L 03/11/18 20:44 Hct 34.9 % (41.0-60) L 03/11/18 20:44 MCV 93.1 fl (81-100) 03/11/18 20:44 MCH 31.7 pg (27.0-31.0) H 03/11/18 20:44 MCHC Differential 34.0 pg (28.0-36.0) 03/11/18 20:44 RDW 12.2 % (11.5-20.0) 03/11/18 20:44 Plt Count 356 Th/cmm (150-400) 03/11/18 20:44 MPV 7.5 fl 03/11/18 20:44 Neutrophils % 74.3 % (40.0-80.0) 03/11/18 20:44 Lymphocytes % 17.5 % (20.0-50.0) L 03/11/18 20:44 Monocytes % 6.2 % (2.0-10.0) 03/11/18 20:44 Eosinophils % 1.0 % (0.0-5.0) 03/11/18 20:44 Basophils % 1.0 % (0.0-2.0) 03/11/18 20:44 Sodium 142 mEq/L (136-145) 03/11/18 20:44 Potassium 4.2 mEq/L (3.5-5.1) 03/11/18 20:44 Chloride 103 mEq/L (98-107) 03/11/18 20:44 Carbon Dioxide 30.5 mEq/L (21.0-31.0) 03/11/18 20:44 Anion Gap 12.7 (7.0-16.0) 03/11/18 20:44 BUN 17 mg/dL (7-25) 03/11/18 20:44 Creatinine 1.1 mg/dL (0.6-1.2) 03/11/18 20:44 Est GFR ( Amer) > 60.0 ml/min (>90) 03/11/18 20:44 Est GFR (Non-Af Amer) 52.5 ml/min 03/11/18 20:44 BUN/Creatinine Ratio 15.5 03/11/18 20:44 Glucose 102 mg/dL (70-105) 03/11/18 20:44 Calcium 9.1 mg/dL (8.6-10.3) 03/11/18 20:44 Total Bilirubin 0.4 mg/dL (0.3-1.0) 03/11/18 20:44 AST 28 U/L (13-39) 03/11/18 20:44 ALT 20 U/L (7-52) 03/11/18 20:44 Alkaline Phosphatase 102 U/L (34-104) 03/11/18 20:44 Troponin I 0.01 ng/mL (0.01-0.05) 03/11/18 20:44 Total Protein 5.7 gm/dL (6.0-8.3) L 03/11/18 20:44 Albumin 3.5 gm/dL (3.7-5.3) L 03/11/18 20:44 Globulin 2.2 gm/dL 03/11/18 20:44 Albumin/Globulin Ratio 1.6 (1.0-1.8) 03/11/18 20:44 Triglycerides 73 mg/dL (<150) 03/11/18 20:44 Cholesterol 171 mg/dL (<200) 03/11/18 20:44 LDL Cholesterol Direct 104 mg/dL (75-193) 03/11/18 20:44 HDL Cholesterol 61 mg/dL (23-92) 03/11/18 20:44 TSH 4.32 uIU/ml (0.34-5.60) 03/11/18 20:44 Salicylates < 25.0 mg/L (30.0-100.0) L 03/11/18 20:44 Acetaminophen < 10.0 ug/mL (10.0-30.0) L 03/11/18 20:44 Ethyl Alcohol < 10 mg/dL (0-10) 03/11/18 20:44 RPR NONREACTIVE (NONREACTIVE) 03/11/18 20:44 - Physical Exam Vitals and I&O: Vital Signs Temp 97.6 F 03/18/18 04:21 Pulse 83 03/18/18 04:21 Resp 18 03/18/18 04:21 BP 116/69 03/18/18 04:21 Pulse Ox 95 03/18/18 04:21 Active Medications: Current Medications Acetaminophen (Tylenol) 650 mg PO Q8HR PRN PRN Reason: for pain/fever >100 Stop: 05/11/18 04:37 Last Admin: 03/16/18 14:18 Dose: 650 mg Aspirin (Ecotrin) 81 mg PO DAILY [facility] Stop: 05/11/18 08:59 Last Admin: 03/17/18 08:47 Dose: 81 mg Atorvastatin Calcium (Lipitor) 10 mg PO HS [facility]; Protocol Stop: 05/11/18 20:59 Last Admin: 03/17/18 20:25 Dose: 10 mg Cholecalciferol (Vitamin D3) 5,000 iu PO DAILY [facility] Stop: 05/11/18 08:59 Last Admin: 03/17/18 08:46 Dose: 5,000 iu Divalproex Sodium (Depakote Dr) 250 mg PO BID [facility]; Protocol Stop: 05/16/18 08:59 Last Admin: 03/17/18 16:38 Dose: 250 mg Folic Acid (Folate) 1 mg PO DAILY [facility] Stop: 05/11/18 08:59 Last Admin: 03/17/18 08:47 Dose: 1 mg Haloperidol (Haldol) 1 mg PO BID [facility]; Protocol Stop: 05/16/18 08:59 Last Admin: 03/17/18 16:38 Dose: 1 mg Levothyroxine Sodium (Synthroid) 0.05 mg PO DAILY@0730 [facility] Stop: 05/11/18 07:29 Last Admin: 03/18/18 06:41 Dose: 0.05 mg Lorazepam (Ativan) 0.5 mg PO Q8H PRN; Protocol PRN Reason: Anxiety Stop: 05/10/18 23:48 Last Admin: 03/17/18 09:46 Dose: 0.5 mg Olanzapine (Zyprexa Zydis) 5 mg PO BID [facility]; Protocol Stop: 05/16/18 11:29 Last Admin: 03/17/18 16:37 Dose: 5 mg Pantoprazole Sodium (Protonix) 40 mg PO DAILY [facility] Stop: 05/11/18 08:59 Last Admin: 03/17/18 08:47 Dose: 40 mg Quetiapine Fumarate (Seroquel) 25 mg PO BID [facility]; Protocol Stop: 05/16/18 08:59 Last Admin: 03/17/18 16:38 Dose: 25 mg Senna (Senna) 17.2 mg PO HS [facility] Stop: 05/11/18 20:59 Last Admin: 03/17/18 20:24 Dose: 17.2 mg Tramadol HCl (Ultram) 50 mg PO BID PRN PRN Reason: Pain (Mild) Stop: 05/13/18 16:59 Last Admin: 03/14/18 18:16 Dose: 50 mg Zolpidem Tartrate (Ambien) 5 mg PO HS [facility] Stop: 05/11/18 20:59 Last Admin: 03/17/18 20:25 Dose: 5 mg General: Alert, Oriented x3, No acute distress HEENT: Atraumatic, PERRLA, EOMI Neck: Supple Cardiovascular: Regular rate, Normal S1, Normal S2 Lungs: Clear to auscultation Extremities: no Clubbing, no Cyanosis, no Edema Assessment/Plan - Assessment Assessment: psychosis HTN elevated Dyslipidemia Thyroid disorder Arthritis Dementia Bipolar disorder depression - Plan Plan: continue current treatment. Nutritional Asmnt/Malnutr-PDOC - Dietary Evaluation Malnutrition Findings (Please click <Entered> for more info): Nutritional Asmnt/Malnutrition Start: 03/14/18 11: 45 Text: Status: Complete Freq: Protocol: Document 03/14/18 11:45 VERITO (Rec: 03/14/18 11:50 VERITO HERNANDEZ- [email or web address]) Nutritional Asmnt/Malnutrition Patient General Information Diagnosis psychosis Pertinent Medical Hx/Surgical Hx HTN, depression, dyslipdemia, thyroid, dementia, bipolar Subjective Information Pt sitting chair asleep. Current Diet Order/ Nutrition Support Regular Pertinent Medications lipitor, vit D3, foalte, synthroid, protonix, senna Pertinent Labs 03/11: Na 142, K 4.2, CL 103, CO2 30.5, BUN 17, Cr 1.1, Ca 9 .1, glucose 102 Nutritional Hx/Data Height 1.73 m Height (Calculated Centimeters) 172.7 Current Weight (lbs) 63.503 kg Weight (Calculated Kilograms) 63.5 Weight (Calculated Grams) 76835.9 Body Mass Index (BMI) 21.2 Weight Status Approriate GI Symptoms GI Symptoms None Last BM none noted Cultural/Ethnic/Synagogue Belief unknown Usual diet at home regular Skin Integrity/Comment: mere score 16 Current %PO Good (75-100%) Estimated Nutritional Goals BEE in Kcals: Using Current wt Calories/Kcals/Kg 25-30kcals/kg Kcals Calculated 1600-1920kcals/day Protein: Using Current wt Protein g/kg/kg Protein Calculated 64g/day Fluid: ml per MD Nutritional Problem 1. Problem Problem No nutrition diagnosis at this time Intervention/Recommendation Comments Recommend continuing Regular diet with texture per MARKETING ANALYST Expected Outcomes/Goals Expected Outcomes/Goals PO intake >75% of meals
[2018-03-18] MEDS: Pantoprazole 40 mg EC Tab PO SCH (08:39)
[2018-03-18] MEDS: OLANZapine 5 mg Oral Disintegrating Tab PO SCH ×2 (08:39→17:19)
--- NOTE | 2018-03-18 09:03 | Progress Notes ---
DATE: 03/17/2018 PSYCHIATRIC PROGRESS NOTE SUBJECTIVE: Staff was spoken to. The patient is interviewed. Mood is noted to be irritable. Affect is constricted. Insight and judgment at this time are noted to be still impaired. Impulse control seems to be a problem. No side effects to the medications are noted. ASSESSMENT: The patient is still psychotic. PLAN: Continue the patient with supportive therapy. I encouraged the patient to verbalize the concerns rather than to act out. JOB# [id number]
--- NOTE | 2018-03-19 03:53 | Progress Notes ---
DATE: 03/18/2018 SUBJECTIVE: Staff was spoken to. The patient is interviewed. Mood is noted to be anxious. Affect is appropriate. Not suicidal or homicidal. Insight and judgment are noted to be improving. Impulse control is noted to be fair. No major behavioral problems are noted, but the patient has sundowning effect. The patient has been able to tolerate the medications. ASSESSMENT: The patient is stabilizing. PLAN: To discharge the patient today for followup on outpatient basis. JOB# [id number]
--- NOTE | 2018-03-21 10:54 | Discharge Summary ---
DATE OF DISCHARGE: 03/18/2018 IDENTIFYING DATA: The patient is a 67-year-old resident of [facility]. JUSTIFICATION OF HOSPITALIZATION: The patient is admitted for acute agitation and psychosis. CHIEF COMPLAINT: "I don't need to be here." DIAGNOSES AT THE TIME OF ADMISSION: AXIS I: Psychotic disorder, not otherwise specified. IB: Dementia and behavioral change secondary to it. AXIS II: None. AXIS III: As per Dr. Perez. HISTORY OF PRESENT ILLNESS: Please refer to 03/12/2018 dictation done by me. Physical examination was done by Dr. Perez and the blood work done at the time of the hospitalization has been reviewed and hemoglobin is noted to be 11.9 and hematocrit 34.9 and rest of the blood work is noted to be within normal limits. HOSPITAL COURSE AND RESPONSE TO TREATMENT: The patient has been observed on inpatient unit, provided with supportive psychotherapy. The patient started to bang on the GD chair and screaming and yelling all the time. The patient has been given the routine p.r.n. medications such as the Ativan and Ambien along with Tylenol and Mylanta and milk of magnesia. The patient has been closely monitored. The patient has been placed on the olanzapine, which was given 25 mg twice a day and the patient also has been given the Seroquel one time, but it is not effective and patient has also been tried with the Haldol 1 mg b.i.d. for her agitation. With these multiple interventions along with the Depakote 250 mg twice a day. The patient was observed and the agitation started to come down and hence the patient was discharged on 03/18/2018 with recommendation that she is going to be seeking treatment at [place]. MENTAL STATUS EXAMINATION: At the time of the discharge, the patient's mood is noted to be less irritable. Affect is appropriate. Not suicidal or homicidal. Insight and judgment and being improving. Impulse control is noted to be fair. No side effects to the medications are noted in the time of the discharge. PROGNOSIS: At the time of discharge is noted to be fair with the treatment. [facility]# [id number]
== END 2018-03-18 17:45 | disposition home or self-care (01) | DRG 885 ==
LOC: ER 18:29 → GERO2 21:40
PROVIDERS: ADMIT Psychiatry & Neurology Psychiatry; ATTEND Psychiatry & Neurology Psychiatry
DX: F29 Unspecified psychosis not due to a substance or known physiological condition (principal); F03.91 Unspecified dementia, unspecified severity, with behavioral disturbance; I10 Essential (primary) hypertension; E78.5 Hyperlipidemia, unspecified; F31.9 Bipolar disorder, unspecified; E03.9 Hypothyroidism, unspecified; M19.90 Unspecified osteoarthritis, unspecified site; F03.90 Unspecified dementia, unspecified severity, without behavioral disturbance, psychotic disturbance, mood disturbance, and anxiety; Z82.49 Family history of ischemic heart disease and other diseases of the circulatory system; Z79.82 Long term (current) use of aspirin
CPT/HCPCS: 36415-UA; 80053-TC; 80061-TC; 80320-TC; 80329-TC; 83036-90; 84443-TC; 84484-TC; 85025-TC; 86592-TC; 93005; J1200; J1630; J2060; Z7610

== ENCOUNTER 2018-03-20 17:25 | Inpatient (IN) | payer MEDICARE, BC ==
[2018-03-20 18:28] LABS: % BASOPHILS 0.4 % (0.0-2.0); % EOSINOPHILS 0.5 % (0.0-5.0); % LYMPHOCYTES 18.3 % (20.0-50.0); % MONOCYTES 8.1 % (2.0-10.0); % NEUTROPHILS 72.7 % (40.0-80.0); HEMATOCRIT 34.9 % (41.0-60); HEMOGLOBIN 11.9 gm/dL (12-16); LYMPHOCYTE ABSOLUTE 1.4 Th/cmm (1.5-3.0); MEAN CELL VOLUME 91.4 fl (81-100); MEAN PLATELET VOLUME 7.5 fl; MONOCYTE ABSOLUTE 0.6 Th/cmm (0.3-1.0); NEUTROPHILE ABSOLUTE 5.8 Th/cmm (1.8-8.0); PLATELET COUNT 347 Th/cmm (150-400); RED BLOOD COUNT 3.82 Mil/cmm (3.80-5.20); WHITE BLOOD COUNT 7.8 Th/cmm (4.8-10.8)
[2018-03-20 18:44] LABS: ALB/GLOB RATIO 1.4 (1.0-1.8); ALBUMIN 3.7 gm/dL (3.7-5.3); ANION GAP 12.2 (7.0-16.0); BILIRUBIN,TOTAL 0.5 mg/dL (0.3-1.0); CALCIUM SERUM 9.4 mg/dL (8.6-10.3); CARBON DIOXIDE 29.4 mEq/L (21.0-31.0); CREATININE - SERUM 1.2 mg/dL (0.6-1.2); GFR AFRICAN-AMERICAN 57.5 ml/min (>90); GFR NON AFRICAN-AMERICAN 47.5 ml/min; MAGNESIUM 1.9 mg/dL (1.9-2.7); POTASSIUM SERUM 4.6 mEq/L (3.5-5.1); TOTAL PROTEIN,SERUM 6.3 gm/dL (6.0-8.3)
[2018-03-20] MEDS ORDERED: Haloperidol Lactate 5 mg/mL 1mL Vial IM STA (19:21)
[2018-03-20] MEDS ORDERED: Haloperidol Lactate 5 mg/mL 1mL Vial ONE (19:22)
--- NOTE | 2018-03-20 19:23 | ED Physician Chart ---
ED Chief Complaint/HPI - Patient Information Date Seen:: 03/20/18 Time Seen:: 18:10 Chief Complaint:: increased agitation & danger to others History of Present Illness:: increased agitation & danger to others PATIENT IS ON A 5150 Allergies:: Allergies Allergy/AdvReac Type Severity Reaction Status Date / Time No Known Allergies Allergy Verified 03/11/18 18:32 Vitals:: Vital Signs - 8 hr 03/20/18 03/20/18 18:10 18:46 Temp 97.4 F 97.4 F HR 107 107 RR 19 19 BP 164/51 164/51 O2 Sat % 96 Historian:: Patient Review:: Nurse's Note Reviewed, Transfer documents Reviewed ED Review of Systems - Review of Systems General/Constitutional: No fever, No chills, No weight loss, No weakness, No diaphoresis, No edema, No loss of appetite Skin: No skin lesions, No rash, No bruising Head: No headache, No light-headedness Eyes: No loss of vision, No pain, No diplopia ENT: No earache, No nasal drainage, No sore throat, No tinnitus Neck: No neck pain, No swelling, No thyromegaly, No stiffness, No mass noted Cardio Vascular: No chest pain, No palpitations, No PND, No orthopnea, No edema Pulmonary: No SOB, No cough, No sputum, No wheezing GI: No nausea, No vomiting, Diarrhea, No pain, No melena, No hematochezia, No constipation, No hematemesis G/U: No dysuria, No frequency, No hematuria Musculoskeletal: No bone or joint pain, No back pain, No muscle pain Endocrine: No polyuria, No polydipsia Psychiatric: No prior psych history, No depression, Anxiety, No suicidal ideation, Other (increased agitation & danger to others) Hematopoietic: No bruising, No lymphadenopathy Allergic/Immuno: No urticaria, No angioedema Neurological: No syncope, No focal symptoms, No weakness, No paresthesia, No headache, No seizure, No dizziness, No confusion, No vertigo ED Past Medical History - Past Medical History Obtainable: No Past Medical History: Dyslipidemia, Thyroid disorder, Dementia, Other (Alzheimer 's; acute kidney innjury; ) Psychiatricy History: Dementia Family Medical History - Family Member Mother History Unknown: Yes ED Physical Exam - Physical Examination General/Constitutional: Awake, Alert Other Gen/Cons comments:: thin, chronically ill appearing. Head: Atraumatic Eyes: Lids, conjuctiva normal, PERRL, EOMI Skin: Nl inspection, No rash, No skin lesions, No ecchymosis, Well hydrated, No lymphadenopathy ENMT: External ears, nose nl, Nasal exam nl, Lips, teeth, gums nl Neck: Nontender, No nuchal rigidity, No stridor Respiratory: Nl effort/Exclusion, Clear to Auscultation, No Wheeze/Rhonchi/Rales Cardio Vascular: RRR, No murmur, gallop, rubs, NL S1 S2 GI: No tenderness/rebounding/guarding, No organomegaly, No hernia, Normal BS's, Nondistended, No mass/bruits, No McBurney tenderness : No CVA tenderness Extremities: No tenderness or effusion, Full ROM, normal strength in all extremities, No edema, Normal digits & nails Neuro/Psych: No focal deficits Other Neuro/Psych comments:: attempting to touch her genitalia through her pants. Misc: Normal back, No paraspinal tenderness ED Labs/Radiology/EKG Results - Lab Results Results: Laboratory Tests 03/20/18 03/20/18 18:20 18:20 WBC 7.8 RBC 3.82 Hgb 11.9 L Hct 34.9 L MCV 91.4 MCH 31.0 MCHC Differential 34.0 RDW 12.0 Plt Count 347 MPV 7.5 Neutrophils % 72.7 Lymphocytes % 18.3 L Monocytes % 8.1 Eosinophils % 0.5 Basophils % 0.4 Sodium 144 Potassium 4.6 Chloride 107 Carbon Dioxide 29.4 Anion Gap 12.2 BUN 30 H Creatinine 1.2 Est GFR ( Amer) 57.5 Est GFR (Non-Af Amer) 47.5 BUN/Creatinine Ratio 25.0 Glucose 117 H Calcium 9.4 Phosphorus 4.0 Magnesium 1.9 Total Bilirubin 0.5 AST 23 ALT 18 Alkaline Phosphatase 100 Total Protein 6.3 Albumin 3.7 Globulin 2.6 Albumin/Globulin Ratio 1.4 ED Assessment - Assessment General Assessment: PATIENT IS MEDICALLY CLEARED FOR THE GEROPSYCH UNIT. URINE WAS NOT COLLECTED IN ER. WOULD COLLECT IT ON THE UNIT TO CHECK FOR A URINARY TRACT INFECTION. ED Septic Shock - . Is Septic Shock (SBP<90, OR Lactate>4 mmol\L) present?: No - <6hrs of presentation: Vital Signs: Vital Signs - 8 hr 03/20/18 03/20/18 18:10 18:46 Temp 97.4 F 97.4 F HR 107 107 RR 19 19 BP 164/51 164/51 O2 Sat % 96 ED Reassessment (Disposition) - Reassessment Reassessment Condition:: Unchanged - Diagnosis Diagnosis:: INCREASED AGITATION DANGER TO OTHERS PATIENT IS ON A 5150 PATIENT IS MEDICALLY CLEARED FOR THE GEROPSYCH UNIT. URINE WAS NOT COLLECTED IN ER. WOULD COLLECT IT ON THE UNIT TO CHECK FOR A URINARY TRACT INFECTION. - Patient Disposition Discharge/Transfer:: Acute Care w/in this hosp Admitted to:: [facility] Condition at Disposition:: Stable, Unchanged
[2018-03-20 21:49] VITALS: BP 140/67
[2018-03-20] MEDS ORDERED: Maalox 30 mL Cup PO PRN (21:50)
[2018-03-20] MEDS ORDERED: Magnesium Hydroxide (MOM) 30 mL UDC PO PRN (21:50)
--- NOTE | 2018-03-21 06:08 | History and Physical ---
History of Present Illness - HPI Chief Complaint: increased agitation and danger to others HPI: 67y/o female who presents to [facility] ER for increased agitation and dangers to others. Patient has a previous medical history of dyslipidemia, thyroid disorder, dementia, Alzheimer's, JUNAID. While in the ER patient's initial labwork revealed the following. - Lab Results Results: Laboratory Tests 03/20/18 03/20/18 18:20 18:20 WBC 7.8 RBC 3.82 Hgb 11.9 L Hct 34.9 L MCV 91.4 MCH 31.0 MCHC Differential 34.0 RDW 12.0 Plt Count 347 MPV 7.5 Neutrophils % 72.7 Lymphocytes % 18.3 L Monocytes % 8.1 Eosinophils % 0.5 Basophils % 0.4 Sodium 144 Potassium 4.6 Chloride 107 Carbon Dioxide 29.4 Anion Gap 12.2 BUN 30 H Creatinine 1.2 Est GFR ( Amer) 57.5 Est GFR (Non-Af Amer) 47.5 BUN/Creatinine Ratio 25.0 Glucose 117 H Calcium 9.4 Phosphorus 4.0 Magnesium 1.9 Total Bilirubin 0.5 AST 23 ALT 18 Alkaline Phosphatase 100 Total Protein 6.3 Albumin 3.7 Globulin 2.6 Albumin/Globulin Ratio 1.4 Patient was subsequently admitted to [facility] for further evaluation and treatment. Vital Signs: Last Vital Signs Temp 98.1 F 03/20/18 21:28 Pulse 72 03/20/18 21:28 Resp 20 03/20/18 21:28 BP 140/67 03/20/18 21:48 Pulse Ox 97 03/20/18 21:28 Past Medical History Cardiovascular: Report: Hyperlipidemia Pulmonary: Report: No Pertinent Hx DINING ROOM CASHIER: Report: Dementia (Alzheimer's) GI: Report: No Pertinent Hx Psych: Report: No Pertinent Hx Musculoskeletal: Report: No Pertinent Hx Rheumatologic: Report: No pertinent Hx Infectious Disease: Report: No Pertinent Hx Renal/: Report: No Pertinent Hx Endocrine: Report: Hypothyroidism - Past Surgical History Past Surgical History: No pertinent Hx Family Medical History - Family Member Mother History Unknown: Yes Ethnicity: Unknown Living Status: Unknown Hx Family Cancer: (unknown) Hx Family Coronary Artery Disease: (unknown) Hx Family Congestive Heart Failure: (unknown) Hx Family Hypertension: (unknown) Hx Family Stroke: (unknown) Hx Family Diabetes: (unknown) Hx Family Seizures: (unknown) Hx Family Dementia: (unknown) Hx Family AIDS: (unknown) Hx Family HIV: No Hx Family COPD: (unknown) Hx Family Hepatitis: (unknown) Hx Family Psychiatric Problems: (unknwon) Hx Family Tuberculosis: (unknown) Social History Smoke: No Alcohol: None Drugs: None Lives: With Family - Medications Home Medications: Home Medication Medication Instructions Recorded Type Acetaminophen [Tylenol] 650 mg PO Q8HR PRN tab 03/18/18 Rx Cholecalciferol (Vit D3) [Vitamin 5,000 iu PO DAILY tab 03/18/18 Rx D3] Divalproex DR [Depakote DR] 250 mg PO BID tcp 03/18/18 Rx Haloperidol [Haldol*] 1 mg PO BID tab 03/18/18 Rx Levothyroxine [Synthroid] 0.05 mg PO DAILY@0730 tab 03/18/18 Rx Lorazepam [Ativan] 0.5 mg PO Q8H PRN tab 03/18/18 Rx OLANZapine ODT [ZyPREXA ZYDIS] 5 mg PO BID odt 03/18/18 Rx QUEtiapine Fumarate [SEROquel] 25 mg PO BID tab 03/18/18 Rx Sennosides A and B [Senna] 17.2 mg PO HS tab 03/18/18 Rx Zolpidem Tartrate [Ambien] 5 mg PO HS tab 03/18/18 Rx Atorvastatin Calcium [Lipitor] 20 mg PO HS 03/20/18 History Folic Acid [Folate*] 1 mg PO HS 03/20/18 History Omeprazole 20 mg PO DAILY 03/20/18 History traMADol HCl [Ultram*] 50 mg PO BID 03/20/18 History - Allergies Allergies/Adverse Reactions: Allergies Allergy/AdvReac Type Severity Reaction Status Date / Time No Known Allergies Allergy Verified 03/11/18 18:32 Review of Systems - Review of Systems Constitutional: Report: No Significant Eyes: Report: No Significant ENT: Report: No Significant Respiratory: Report: No Significant Cardiovascular: Report: No Significant Gastrointestinal: Report: No Significant Genitourinary: Report: No Significant Musculoskeletal: Report: No Significant Skin: Report: No Significant Neurological: Report: No Significant Physical Exam - Physical Exam HEENT: Report: Ears Nose Throat within normal limits, Pharnyx within normal limits Neck: Report: Within normal limits Cardiovascular Systems: Report: +s1/s2 noted, Regular, Rate and Rhythm Respiratory: Report: Breath Sounds are within normal limits Abdomen: Report: Non-tender to palpation Back: Report: Inspection of back is within normal limits. Extremities: Report: Non-tender to palpation. Skin: Report: Color of skin is within normal limits Neuro/Psych: Report: Mood affect is within normal limits, A+Ox3 - Lab Results All Lab Results last 24 hours: Laboratory Results - last 24 hr 03/20/18 03/20/18 03/20/18 18:20 18:20 18:30 WBC 7.8 RBC 3.82 Hgb 11.9 L Hct 34.9 L MCV 91.4 MCH 31.0 MCHC Differential 34.0 RDW 12.0 Plt Count 347 MPV 7.5 Neutrophils % 72.7 Lymphocytes % 18.3 L Monocytes % 8.1 Eosinophils % 0.5 Basophils % 0.4 Sodium 144 Potassium 4.6 Chloride 107 Carbon Dioxide 29.4 Anion Gap 12.2 BUN 30 H Creatinine 1.2 Est GFR ( Amer) 57.5 Est GFR (Non-Af Amer) 47.5 BUN/Creatinine Ratio 25.0 Glucose 117 H Calcium 9.4 Phosphorus 4.0 Magnesium 1.9 Total Bilirubin 0.5 AST 23 ALT 18 Alkaline Phosphatase 100 Total Protein 6.3 Albumin 3.7 Globulin 2.6 Albumin/Globulin Ratio 1.4 TSH 0.84 - Assessment Assessment: Current Active Problems Problem Status Onset AGGRESSION AND AGITATION; 51/50 STATUS Acute psychosis dyslipidemia thyroid disorder dementia Alzheimer's dementia - Plan Plan: admit to [facility]
[2018-03-21] MEDS: Levothyroxine 0.05 Mg Tab PO SCH (06:34)
[2018-03-21 06:43] LABS: CHOLESTEROL 185 mg/dL (<200); HDL -HIGH DENSITY LIPOPROTEIN 58 mg/dL (23-92); TRIGLYCERIDES 56 mg/dL (<150)
[2018-03-21] MEDS: Pantoprazole 40 mg EC Tab PO SCH (08:34)
[2018-03-21] MEDS: Multivitamin Tab PO SCH (08:35)
[2018-03-21] MEDS ORDERED: OLANZapine 5 mg Oral Disintegrating Tab PO SCH (09:00)
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
[2018-03-21] MEDS: Atorvastatin Calcium 10 MG TAB PO SCH (21:47)
--- NOTE | 2018-03-22 06:17 | General Progress Note ---
Subjective - Review of Systems Service Date: 03/22/18 Subjective: Awake,alert but confused VS T 98.4 P76 R18 BP 118/62 Objective - Results Result Diagrams: 03/20/18 18:20 03/20/18 18:20 Recent Labs: Laboratory Last Values WBC 7.8 Th/cmm (4.8-10.8) 03/20/18 18:20 RBC 3.82 Mil/cmm (3.80-5.20) 03/20/18 18:20 Hgb 11.9 gm/dL (12-16) L 03/20/18 18:20 Hct 34.9 % (41.0-60) L 03/20/18 18:20 MCV 91.4 fl (81-100) 03/20/18 18:20 MCH 31.0 pg (27.0-31.0) 03/20/18 18:20 MCHC Differential 34.0 pg (28.0-36.0) 03/20/18 18:20 RDW 12.0 % (11.5-20.0) 03/20/18 18:20 Plt Count 347 Th/cmm (150-400) 03/20/18 18:20 MPV 7.5 fl 03/20/18 18:20 Neutrophils % 72.7 % (40.0-80.0) 03/20/18 18:20 Lymphocytes % 18.3 % (20.0-50.0) L 03/20/18 18:20 Monocytes % 8.1 % (2.0-10.0) 03/20/18 18:20 Eosinophils % 0.5 % (0.0-5.0) 03/20/18 18:20 Basophils % 0.4 % (0.0-2.0) 03/20/18 18:20 Sodium 144 mEq/L (136-145) 03/20/18 18:20 Potassium 4.6 mEq/L (3.5-5.1) 03/20/18 18:20 Chloride 107 mEq/L (98-107) 03/20/18 18:20 Carbon Dioxide 29.4 mEq/L (21.0-31.0) 03/20/18 18:20 Anion Gap 12.2 (7.0-16.0) 03/20/18 18:20 BUN 30 mg/dL (7-25) H 12/07/18 18:20 Creatinine 1.2 mg/dL (0.6-1.2) 03/20/18 18:20 Est GFR ( Amer) 57.5 ml/min (>90) 03/20/18 18:20 Est GFR (Non-Af Amer) 47.5 ml/min 03/20/18 18:20 BUN/Creatinine Ratio 25.0 03/20/18 18:20 Glucose 117 mg/dL (70-105) H 03/20/18 18:20 Calcium 9.4 mg/dL (8.6-10.3) 03/20/18 18:20 Phosphorus 4.0 mg/dL (2.5-5.0) 03/20/18 18:20 Magnesium 1.9 mg/dL (1.9-2.7) 03/20/18 18:20 Total Bilirubin 0.5 mg/dL (0.3-1.0) 03/20/18 18:20 AST 23 U/L (13-39) 03/20/18 18:20 ALT 18 U/L (7-52) 03/20/18 18:20 Alkaline Phosphatase 100 U/L (34-104) 03/20/18 18:20 Total Protein 6.3 gm/dL (6.0-8.3) 03/20/18 18:20 Albumin 3.7 gm/dL (3.7-5.3) 03/20/18 18:20 Globulin 2.6 gm/dL 03/20/18 18:20 Albumin/Globulin Ratio 1.4 (1.0-1.8) 03/20/18 18:20 Triglycerides 56 mg/dL (<150) 03/21/18 06:11 Cholesterol 185 mg/dL (<200) 03/21/18 06:11 LDL Cholesterol Direct 112 mg/dL (75-193) 03/21/18 06:11 HDL Cholesterol 58 mg/dL (23-92) 03/21/18 06:11 TSH 0.84 uIU/ml (0.34-5.60) 03/20/18 18:30 - Physical Exam Vitals and I&O: Vital Signs Temp 98.4 F 03/21/18 20:59 Pulse 76 03/21/18 20:59 Resp 18 03/21/18 20:59 BP 118/62 03/21/18 20:59 Pulse Ox 96 03/21/18 20:59 Intake & Output 03/21/18 03/21/18 03/22/18 06:59 18:59 06:59 Intake Total 1300 240 Balance 1300 240 Intake: Oral 1300 240 Other: # Voids 3 1 # Bowel Movements 1 Active Medications: Current Medications Acetaminophen (Tylenol) 650 mg PO Q4H PRN PRN Reason: Mild Pain / Temp above 100 Stop: 05/19/18 21:49 Al Hydrox/Mg Hydrox/Simethicone (Maalox) 30 ml PO Q4HR PRN PRN Reason: GI DISTRESS Stop: 05/19/18 21:49 Atorvastatin Calcium (Lipitor) 20 mg PO HS [facility]; Protocol Stop: 05/20/18 20:59 Last Admin: 03/21/18 21:47 Dose: 20 mg Cholecalciferol (Vitamin D3) 5,000 iu PO DAILY [facility] Stop: 05/20/18 08:59 Last Admin: 03/21/18 08:35 Dose: 5,000 iu Divalproex Sodium (Depakote Dr) 250 mg PO BID [facility]; Protocol Stop: 05/20/18 14:44 Last Admin: 03/21/18 16:31 Dose: 250 mg Folic Acid (Folate) 1 mg PO HS [facility] Stop: 05/20/18 20:59 Last Admin: 03/21/18 21:47 Dose: 1 mg Haloperidol (Haldol) 1 mg PO BID PRN; Protocol PRN Reason: Agitation Stop: 05/20/18 08:59 Levothyroxine Sodium (Synthroid) 0.05 mg PO DAILY@0730 [facility] Stop: 05/20/18 07:29 Last Admin: 03/21/18 06:34 Dose: 0.05 mg Lorazepam (Ativan) 0.5 mg PO Q6HR PRN; Protocol PRN Reason: Anxiety Stop: 05/19/18 22:30 Magnesium Hydroxide (Milk Of Magnesia) 30 ml PO HS PRN PRN Reason: Constipation Multivitamins/Vitamin C (Theragran) 1 tab PO DAILY [facility] Stop: 05/20/18 08:59 Last Admin: 03/21/18 08:35 Dose: 1 tab Pantoprazole Sodium (Protonix) 40 mg PO DAILY [facility] Stop: 05/20/18 08:59 Last Admin: 03/21/18 08:34 Dose: 40 mg Quetiapine Fumarate (Seroquel) 50 mg PO BID [facility]; Protocol Stop: 05/20/18 16:59 Last Admin: 03/21/18 16:29 Dose: 50 mg Senna (Senna) 17.2 mg PO HS [facility] Stop: 05/20/18 20:59 Last Admin: 03/21/18 21:55 Dose: 17.2 mg Tramadol HCl (Ultram) 50 mg PO BID [facility] Stop: 05/20/18 08:59 Last Admin: 03/21/18 16:27 Dose: 50 mg Zolpidem Tartrate (Ambien) 5 mg PO HS PRN PRN Reason: Insomnia Stop: 05/19/18 23:34 General: Alert, Oriented x3, No acute distress HEENT: Atraumatic, PERRLA, EOMI Neck: Supple Cardiovascular: Regular rate, Normal S1, Normal S2 Lungs: Clear to auscultation Abdomen: Bowel sounds Extremities: no Clubbing, no Cyanosis, no Edema Neurological: Normal gait, Normal speech Assessment/Plan - Problem List Patient Problems: All Active Problems AGGRESSION AND AGITATION; 51/50 STATUS (Acute) - Assessment Assessment: Current Active Problems Problem Status Onset AGGRESSION AND AGITATION; 51/50 STATUS Acute psychosis dyslipidemia thyroid disorder dementia Alzheimer's dementia - Plan Plan: admit to [facility]
[2018-03-22] MEDS: Levothyroxine 0.05 Mg Tab PO SCH (06:38)
[2018-03-22] MEDS: Multivitamin Tab PO SCH (08:24)
[2018-03-22] MEDS: Pantoprazole 40 mg EC Tab PO SCH (08:26)
[2018-03-22] MEDS: Atorvastatin Calcium 10 MG TAB PO SCH (20:45)
--- NOTE | 2018-03-22 23:48 | Progress Notes ---
DATE: 03/22/2018 SUBJECTIVE: Staff was spoken to. The patient is interviewed. Mood is noted to be nondysphoric. Coping skills are noted to be very poor. The patient's insight and judgment also noted to be still impaired. No side effects to the medications are noted. The patient needs to be redirected. The patient has been confused and demented and aggressive behavior is a major concern with the patient. The patient has been banging on the GD chair. ASSESSMENT: The patient is still psychotic. PLAN: To continue the patient on the current medications and followup. JOB# [id number]
[2018-03-23] MEDS: Levothyroxine 0.05 Mg Tab PO SCH (06:56)
--- NOTE | 2018-03-23 08:13 | General Progress Note ---
Subjective - Review of Systems Service Date: 03/23/18 Subjective: Awake,alert but confused VS T 97.6 P86 R18 BP 90/59 Objective - Results Result Diagrams: 03/20/18 18:20 03/20/18 18:20 Recent Labs: Laboratory Last Values WBC 7.8 Th/cmm (4.8-10.8) 03/20/18 18:20 RBC 3.82 Mil/cmm (3.80-5.20) 03/20/18 18:20 Hgb 11.9 gm/dL (12-16) L 03/20/18 18:20 Hct 34.9 % (41.0-60) L 03/20/18 18:20 MCV 91.4 fl (81-100) 03/20/18 18:20 MCH 31.0 pg (27.0-31.0) 03/20/18 18:20 MCHC Differential 34.0 pg (28.0-36.0) 03/20/18 18:20 RDW 12.0 % (11.5-20.0) 03/20/18 18:20 Plt Count 347 Th/cmm (150-400) 03/20/18 18:20 MPV 7.5 fl 03/20/18 18:20 Neutrophils % 72.7 % (40.0-80.0) 03/20/18 18:20 Lymphocytes % 18.3 % (20.0-50.0) L 03/20/18 18:20 Monocytes % 8.1 % (2.0-10.0) 03/20/18 18:20 Eosinophils % 0.5 % (0.0-5.0) 03/20/18 18:20 Basophils % 0.4 % (0.0-2.0) 03/20/18 18:20 Sodium 144 mEq/L (136-145) 03/20/18 18:20 Potassium 4.6 mEq/L (3.5-5.1) 03/20/18 18:20 Chloride 107 mEq/L (98-107) 03/20/18 18:20 Carbon Dioxide 29.4 mEq/L (21.0-31.0) 03/20/18 18:20 Anion Gap 12.2 (7.0-16.0) 03/20/18 18:20 BUN 30 mg/dL (7-25) H 12/07/18 18:20 Creatinine 1.2 mg/dL (0.6-1.2) 03/20/18 18:20 Est GFR ( Amer) 57.5 ml/min (>90) 03/20/18 18:20 Est GFR (Non-Af Amer) 47.5 ml/min 03/20/18 18:20 BUN/Creatinine Ratio 25.0 03/20/18 18:20 Glucose 117 mg/dL (70-105) H 03/20/18 18:20 Calcium 9.4 mg/dL (8.6-10.3) 03/20/18 18:20 Phosphorus 4.0 mg/dL (2.5-5.0) 03/20/18 18:20 Magnesium 1.9 mg/dL (1.9-2.7) 03/20/18 18:20 Total Bilirubin 0.5 mg/dL (0.3-1.0) 03/20/18 18:20 AST 23 U/L (13-39) 03/20/18 18:20 ALT 18 U/L (7-52) 03/20/18 18:20 Alkaline Phosphatase 100 U/L (34-104) 03/20/18 18:20 Total Protein 6.3 gm/dL (6.0-8.3) 03/20/18 18:20 Albumin 3.7 gm/dL (3.7-5.3) 03/20/18 18:20 Globulin 2.6 gm/dL 03/20/18 18:20 Albumin/Globulin Ratio 1.4 (1.0-1.8) 03/20/18 18:20 Triglycerides 56 mg/dL (<150) 03/21/18 06:11 Cholesterol 185 mg/dL (<200) 03/21/18 06:11 LDL Cholesterol Direct 112 mg/dL (75-193) 03/21/18 06:11 HDL Cholesterol 58 mg/dL (23-92) 03/21/18 06:11 TSH 0.84 uIU/ml (0.34-5.60) 03/20/18 18:30 - Physical Exam Vitals and I&O: Vital Signs Temp 97.6 F 03/22/18 20:24 Pulse 86 03/22/18 20:24 Resp 18 03/22/18 20:24 BP 90/59 03/22/18 20:24 Pulse Ox 97 03/22/18 20:24 Intake & Output 03/22/18 03/23/18 03/23/18 18:59 06:59 18:59 Intake Total 850 180 Balance 850 180 Intake: Oral 850 180 Other: # Voids 4 1 # Bowel Movements 1 0 Active Medications: Current Medications Acetaminophen (Tylenol) 650 mg PO Q4H PRN PRN Reason: Mild Pain / Temp above 100 Stop: 05/19/18 21:49 Al Hydrox/Mg Hydrox/Simethicone (Maalox) 30 ml PO Q4HR PRN PRN Reason: GI DISTRESS Stop: 05/19/18 21:49 Atorvastatin Calcium (Lipitor) 20 mg PO HS [facility]; Protocol Stop: 05/20/18 20:59 Last Admin: 03/22/18 20:45 Dose: 20 mg Cholecalciferol (Vitamin D3) 5,000 iu PO DAILY [facility] Stop: 05/20/18 08:59 Last Admin: 03/22/18 08:22 Dose: 5,000 iu Divalproex Sodium (Depakote Dr) 250 mg PO BID [facility]; Protocol Stop: 05/20/18 14:44 Last Admin: 03/22/18 16:26 Dose: 250 mg Folic Acid (Folate) 1 mg PO HS [facility] Stop: 05/20/18 20:59 Last Admin: 03/22/18 20:45 Dose: 1 mg Haloperidol (Haldol) 1 mg PO BID PRN; Protocol PRN Reason: Agitation Stop: 05/20/18 08:59 Levothyroxine Sodium (Synthroid) 0.05 mg PO DAILY@0730 [facility] Stop: 05/20/18 07:29 Last Admin: 03/23/18 06:56 Dose: 0.05 mg Lorazepam (Ativan) 0.5 mg PO Q6HR PRN; Protocol PRN Reason: Anxiety Stop: 05/19/18 22:30 Last Admin: 03/23/18 01:20 Dose: 0.5 mg Magnesium Hydroxide (Milk Of Magnesia) 30 ml PO HS PRN PRN Reason: Constipation Multivitamins/Vitamin C (Theragran) 1 tab PO DAILY [facility] Stop: 05/20/18 08:59 Last Admin: 03/22/18 08:24 Dose: 1 tab Mupirocin (Bactroban Oint) 1 appl NS BID [facility] Stop: 03/27/18 09:01 Last Admin: 03/22/18 16:38 Dose: 1 appl Pantoprazole Sodium (Protonix) 40 mg PO DAILY [facility] Stop: 05/20/18 08:59 Last Admin: 03/22/18 08:26 Dose: 40 mg Quetiapine Fumarate (Seroquel) 50 mg PO BID [facility]; Protocol Stop: 05/20/18 16:59 Last Admin: 03/22/18 16:26 Dose: 50 mg Senna (Senna) 17.2 mg PO HS [facility] Stop: 05/20/18 20:59 Last Admin: 03/22/18 20:45 Dose: 17.2 mg Tramadol HCl (Ultram) 50 mg PO BID [facility] Stop: 05/20/18 08:59 Last Admin: 03/22/18 16:26 Dose: 50 mg Zolpidem Tartrate (Ambien) 5 mg PO HS PRN PRN Reason: Insomnia Stop: 05/19/18 23:34 Last Admin: 03/22/18 21:44 Dose: 5 mg General: Alert, Oriented x3, No acute distress HEENT: Atraumatic, PERRLA, EOMI Neck: Supple Cardiovascular: Regular rate, Normal S1, Normal S2 Lungs: Clear to auscultation Abdomen: Bowel sounds Extremities: no Clubbing, no Cyanosis, no Edema Neurological: Normal gait, Normal speech Assessment/Plan - Problem List Patient Problems: All Active Problems AGGRESSION AND AGITATION; 51/50 STATUS (Acute) - Assessment Assessment: Current Active Problems Problem Status Onset AGGRESSION AND AGITATION; 51/50 STATUS Acute psychosis dyslipidemia thyroid disorder dementia Alzheimer's dementia - Plan Plan: admit to [facility]
[2018-03-23] MEDS: Multivitamin Tab PO SCH (09:10)
[2018-03-23] MEDS: Pantoprazole 40 mg EC Tab PO SCH (09:10)
[2018-03-23] MEDS: Atorvastatin Calcium 10 MG TAB PO SCH (20:23)
[2018-03-24] MEDS: Levothyroxine 0.05 Mg Tab PO SCH (06:37)
--- NOTE | 2018-03-24 08:16 | General Progress Note ---
Subjective - Review of Systems Service Date: 03/24/18 Subjective: Awake,alert but confused VS T 98.7 P101 R20 BP 129/77 Objective - Results Result Diagrams: 03/20/18 18:20 03/20/18 18:20 Recent Labs: Laboratory Last Values WBC 7.8 Th/cmm (4.8-10.8) 03/20/18 18:20 RBC 3.82 Mil/cmm (3.80-5.20) 03/20/18 18:20 Hgb 11.9 gm/dL (12-16) L 03/20/18 18:20 Hct 34.9 % (41.0-60) L 03/20/18 18:20 MCV 91.4 fl (81-100) 03/20/18 18:20 MCH 31.0 pg (27.0-31.0) 03/20/18 18:20 MCHC Differential 34.0 pg (28.0-36.0) 03/20/18 18:20 RDW 12.0 % (11.5-20.0) 03/20/18 18:20 Plt Count 347 Th/cmm (150-400) 03/20/18 18:20 MPV 7.5 fl 03/20/18 18:20 Neutrophils % 72.7 % (40.0-80.0) 03/20/18 18:20 Lymphocytes % 18.3 % (20.0-50.0) L 03/20/18 18:20 Monocytes % 8.1 % (2.0-10.0) 03/20/18 18:20 Eosinophils % 0.5 % (0.0-5.0) 03/20/18 18:20 Basophils % 0.4 % (0.0-2.0) 03/20/18 18:20 Sodium 144 mEq/L (136-145) 03/20/18 18:20 Potassium 4.6 mEq/L (3.5-5.1) 03/20/18 18:20 Chloride 107 mEq/L (98-107) 03/20/18 18:20 Carbon Dioxide 29.4 mEq/L (21.0-31.0) 03/20/18 18:20 Anion Gap 12.2 (7.0-16.0) 03/20/18 18:20 BUN 30 mg/dL (7-25) H 12/07/18 18:20 Creatinine 1.2 mg/dL (0.6-1.2) 03/20/18 18:20 Est GFR ( Amer) 57.5 ml/min (>90) 03/20/18 18:20 Est GFR (Non-Af Amer) 47.5 ml/min 03/20/18 18:20 BUN/Creatinine Ratio 25.0 03/20/18 18:20 Glucose 117 mg/dL (70-105) H 03/20/18 18:20 Calcium 9.4 mg/dL (8.6-10.3) 03/20/18 18:20 Phosphorus 4.0 mg/dL (2.5-5.0) 03/20/18 18:20 Magnesium 1.9 mg/dL (1.9-2.7) 03/20/18 18:20 Total Bilirubin 0.5 mg/dL (0.3-1.0) 03/20/18 18:20 AST 23 U/L (13-39) 03/20/18 18:20 ALT 18 U/L (7-52) 03/20/18 18:20 Alkaline Phosphatase 100 U/L (34-104) 03/20/18 18:20 Total Protein 6.3 gm/dL (6.0-8.3) 03/20/18 18:20 Albumin 3.7 gm/dL (3.7-5.3) 03/20/18 18:20 Globulin 2.6 gm/dL 03/20/18 18:20 Albumin/Globulin Ratio 1.4 (1.0-1.8) 03/20/18 18:20 Triglycerides 56 mg/dL (<150) 03/21/18 06:11 Cholesterol 185 mg/dL (<200) 03/21/18 06:11 LDL Cholesterol Direct 112 mg/dL (75-193) 03/21/18 06:11 HDL Cholesterol 58 mg/dL (23-92) 03/21/18 06:11 TSH 0.84 uIU/ml (0.34-5.60) 03/20/18 18:30 - Physical Exam Vitals and I&O: Vital Signs Temp 98.7 F 03/23/18 20:55 Pulse 101 03/23/18 20:55 Resp 20 03/23/18 20:55 BP 129/77 03/23/18 20:55 Pulse Ox 90 03/23/18 20:55 Intake & Output 03/23/18 03/24/18 03/24/18 18:59 06:59 18:59 Intake Total 240 Balance 240 Intake: Oral 240 Other: # Voids 2 2 # Bowel Movements 0 Active Medications: Current Medications Acetaminophen (Tylenol) 650 mg PO Q4H PRN PRN Reason: Mild Pain / Temp above 100 Stop: 05/19/18 21:49 Al Hydrox/Mg Hydrox/Simethicone (Maalox) 30 ml PO Q4HR PRN PRN Reason: GI DISTRESS Stop: 05/19/18 21:49 Atorvastatin Calcium (Lipitor) 20 mg PO HS [facility]; Protocol Stop: 05/20/18 20:59 Last Admin: 03/23/18 20:23 Dose: 20 mg Cholecalciferol (Vitamin D3) 5,000 iu PO DAILY [facility] Stop: 05/20/18 08:59 Last Admin: 03/23/18 09:10 Dose: 5,000 iu Divalproex Sodium (Depakote Dr) 250 mg PO BID [facility]; Protocol Stop: 05/20/18 14:44 Last Admin: 03/23/18 16:08 Dose: 250 mg Folic Acid (Folate) 1 mg PO HS [facility] Stop: 05/20/18 20:59 Last Admin: 03/23/18 20:24 Dose: 1 mg Haloperidol (Haldol) 1 mg PO BID PRN; Protocol PRN Reason: Agitation Stop: 05/20/18 08:59 Last Admin: 03/23/18 16:09 Dose: 1 mg Levothyroxine Sodium (Synthroid) 0.05 mg PO DAILY@0730 [facility] Stop: 05/20/18 07:29 Last Admin: 03/24/18 06:37 Dose: 0.05 mg Lorazepam (Ativan) 0.5 mg PO Q6HR PRN; Protocol PRN Reason: Anxiety Stop: 05/19/18 22:30 Last Admin: 03/23/18 23:01 Dose: 0.5 mg Magnesium Hydroxide (Milk Of Magnesia) 30 ml PO HS PRN PRN Reason: Constipation Multivitamins/Vitamin C (Theragran) 1 tab PO DAILY [facility] Stop: 05/20/18 08:59 Last Admin: 03/23/18 09:10 Dose: 1 tab Mupirocin (Bactroban Oint) 1 appl NS BID [facility] Stop: 03/27/18 09:01 Last Admin: 03/23/18 16:12 Dose: 1 appl Pantoprazole Sodium (Protonix) 40 mg PO DAILY [facility] Stop: 05/20/18 08:59 Last Admin: 03/23/18 09:10 Dose: 40 mg Quetiapine Fumarate (Seroquel) 50 mg PO BID [facility]; Protocol Stop: 05/20/18 16:59 Last Admin: 03/23/18 16:09 Dose: 50 mg Senna (Senna) 17.2 mg PO HS [facility] Stop: 05/20/18 20:59 Last Admin: 03/23/18 20:25 Dose: 17.2 mg Tramadol HCl (Ultram) 50 mg PO BID [facility] Stop: 05/20/18 08:59 Last Admin: 03/23/18 16:08 Dose: 50 mg Zolpidem Tartrate (Ambien) 5 mg PO HS PRN PRN Reason: Insomnia Stop: 05/19/18 23:34 Last Admin: 03/23/18 20:23 Dose: 5 mg General: Alert, Oriented x3, No acute distress HEENT: Atraumatic, PERRLA, EOMI Neck: Supple Cardiovascular: Regular rate, Normal S1, Normal S2 Lungs: Clear to auscultation Abdomen: Bowel sounds Extremities: no Clubbing, no Cyanosis, no Edema Neurological: Normal gait, Normal speech Assessment/Plan - Problem List Patient Problems: All Active Problems AGGRESSION AND AGITATION; 51/50 STATUS (Acute) - Assessment Assessment: Current Active Problems Problem Status Onset AGGRESSION AND AGITATION; 51/50 STATUS Acute psychosis dyslipidemia thyroid disorder dementia Alzheimer's dementia - Plan Plan: admit to [facility]
[2018-03-24] MEDS: Multivitamin Tab PO SCH (09:08)
[2018-03-24] MEDS: Pantoprazole 40 mg EC Tab PO SCH (09:09)
--- NOTE | 2018-03-24 21:49 | Progress Notes ---
DATE: 03/24/2018 SUBJECTIVE: Staff was spoken to. The patient is interviewed. Mood is noted to be irritable. Affect is constricted. The patient is dysphoric. The patient has been confused. No side effects to the medications are noted. The patient's agitation has been coming down. ASSESSMENT: The patient is still psychotic and confused. PLAN: To continue the patient with the supportive therapy and followup. JOB# [id number]
[2018-03-24] MEDS: Atorvastatin Calcium 10 MG TAB PO SCH (22:51)
[2018-03-25] MEDS: Levothyroxine 0.05 Mg Tab PO SCH (06:46)
--- NOTE | 2018-03-25 08:39 | General Progress Note ---
Subjective - Review of Systems Service Date: 03/25/18 Subjective: Awake,alert but confused VS T 98.7 P101 R20 BP 129/77 Objective - Results Result Diagrams: 03/20/18 18:20 03/20/18 18:20 Recent Labs: Laboratory Last Values WBC 7.8 Th/cmm (4.8-10.8) 03/20/18 18:20 RBC 3.82 Mil/cmm (3.80-5.20) 03/20/18 18:20 Hgb 11.9 gm/dL (12-16) L 03/20/18 18:20 Hct 34.9 % (41.0-60) L 03/20/18 18:20 MCV 91.4 fl (81-100) 03/20/18 18:20 MCH 31.0 pg (27.0-31.0) 03/20/18 18:20 MCHC Differential 34.0 pg (28.0-36.0) 03/20/18 18:20 RDW 12.0 % (11.5-20.0) 03/20/18 18:20 Plt Count 347 Th/cmm (150-400) 03/20/18 18:20 MPV 7.5 fl 03/20/18 18:20 Neutrophils % 72.7 % (40.0-80.0) 03/20/18 18:20 Lymphocytes % 18.3 % (20.0-50.0) L 03/20/18 18:20 Monocytes % 8.1 % (2.0-10.0) 03/20/18 18:20 Eosinophils % 0.5 % (0.0-5.0) 03/20/18 18:20 Basophils % 0.4 % (0.0-2.0) 03/20/18 18:20 Sodium 144 mEq/L (136-145) 03/20/18 18:20 Potassium 4.6 mEq/L (3.5-5.1) 03/20/18 18:20 Chloride 107 mEq/L (98-107) 03/20/18 18:20 Carbon Dioxide 29.4 mEq/L (21.0-31.0) 03/20/18 18:20 Anion Gap 12.2 (7.0-16.0) 03/20/18 18:20 BUN 30 mg/dL (7-25) H 12/07/18 18:20 Creatinine 1.2 mg/dL (0.6-1.2) 03/20/18 18:20 Est GFR ( Amer) 57.5 ml/min (>90) 03/20/18 18:20 Est GFR (Non-Af Amer) 47.5 ml/min 03/20/18 18:20 BUN/Creatinine Ratio 25.0 03/20/18 18:20 Glucose 117 mg/dL (70-105) H 03/20/18 18:20 Calcium 9.4 mg/dL (8.6-10.3) 03/20/18 18:20 Phosphorus 4.0 mg/dL (2.5-5.0) 03/20/18 18:20 Magnesium 1.9 mg/dL (1.9-2.7) 03/20/18 18:20 Total Bilirubin 0.5 mg/dL (0.3-1.0) 03/20/18 18:20 AST 23 U/L (13-39) 03/20/18 18:20 ALT 18 U/L (7-52) 03/20/18 18:20 Alkaline Phosphatase 100 U/L (34-104) 03/20/18 18:20 Total Protein 6.3 gm/dL (6.0-8.3) 03/20/18 18:20 Albumin 3.7 gm/dL (3.7-5.3) 03/20/18 18:20 Globulin 2.6 gm/dL 03/20/18 18:20 Albumin/Globulin Ratio 1.4 (1.0-1.8) 03/20/18 18:20 Triglycerides 56 mg/dL (<150) 03/21/18 06:11 Cholesterol 185 mg/dL (<200) 03/21/18 06:11 LDL Cholesterol Direct 112 mg/dL (75-193) 03/21/18 06:11 HDL Cholesterol 58 mg/dL (23-92) 03/21/18 06:11 TSH 0.84 uIU/ml (0.34-5.60) 03/20/18 18:30 - Physical Exam Vitals and I&O: Vital Signs Temp 0 F 03/24/18 20:40 Pulse 116 03/24/18 16:04 Resp 18 03/24/18 20:00 BP 146/76 12/11/18 16:04 Pulse Ox 96 03/24/18 16:04 Intake & Output 03/24/18 03/25/18 03/25/18 18:59 06:59 18:59 Intake Total 240 Balance 240 Weight (lbs) 49.895 kg Intake: Oral 240 Other: # Voids 1 # Bowel Movements 0 Weight Source Bedscale Active Medications: Current Medications Acetaminophen (Tylenol) 650 mg PO Q4H PRN PRN Reason: Mild Pain / Temp above 100 Stop: 05/19/18 21:49 Al Hydrox/Mg Hydrox/Simethicone (Maalox) 30 ml PO Q4HR PRN PRN Reason: GI DISTRESS Stop: 05/19/18 21:49 Atorvastatin Calcium (Lipitor) 20 mg PO HS [facility]; Protocol Stop: 05/20/18 20:59 Last Admin: 03/24/18 22:51 Dose: Not Given Cholecalciferol (Vitamin D3) 5,000 iu PO DAILY [facility] Stop: 05/20/18 08:59 Last Admin: 03/24/18 09:08 Dose: 5,000 iu Divalproex Sodium (Depakote Dr) 250 mg PO BID [facility]; Protocol Stop: 05/20/18 14:44 Last Admin: 03/24/18 17:27 Dose: 250 mg Folic Acid (Folate) 1 mg PO HS [facility] Stop: 05/20/18 20:59 Last Admin: 03/24/18 22:51 Dose: Not Given Haloperidol (Haldol) 1 mg PO BID PRN; Protocol PRN Reason: Agitation Stop: 05/20/18 08:59 Last Admin: 03/23/18 16:09 Dose: 1 mg Levothyroxine Sodium (Synthroid) 0.05 mg PO DAILY@0730 [facility] Stop: 05/20/18 07:29 Last Admin: 03/25/18 06:46 Dose: 0.05 mg Lorazepam (Ativan) 0.5 mg PO Q6HR PRN; Protocol PRN Reason: Anxiety Stop: 05/19/18 22:30 Last Admin: 03/25/18 00:53 Dose: 0.5 mg Magnesium Hydroxide (Milk Of Magnesia) 30 ml PO HS PRN PRN Reason: Constipation Multivitamins/Vitamin C (Theragran) 1 tab PO DAILY [facility] Stop: 05/20/18 08:59 Last Admin: 03/24/18 09:08 Dose: 1 tab Mupirocin (Bactroban Oint) 1 appl NS BID [facility] Stop: 03/27/18 09:01 Last Admin: 03/24/18 17:27 Dose: 1 appl Pantoprazole Sodium (Protonix) 40 mg PO DAILY [facility] Stop: 05/20/18 08:59 Last Admin: 03/24/18 09:09 Dose: 40 mg Quetiapine Fumarate (Seroquel) 50 mg PO BID [facility]; Protocol Stop: 05/20/18 16:59 Last Admin: 03/24/18 17:26 Dose: 50 mg Senna (Senna) 17.2 mg PO HS [facility] Stop: 05/20/18 20:59 Last Admin: 03/24/18 22:51 Dose: Not Given Tramadol HCl (Ultram) 50 mg PO BID [facility] Stop: 05/20/18 08:59 Last Admin: 03/24/18 17:26 Dose: 50 mg Zolpidem Tartrate (Ambien) 5 mg PO HS PRN PRN Reason: Insomnia Stop: 05/19/18 23:34 Last Admin: 03/23/18 20:23 Dose: 5 mg General: Alert, Oriented x3, No acute distress HEENT: Atraumatic, PERRLA, EOMI Neck: Supple Cardiovascular: Regular rate, Normal S1, Normal S2 Lungs: Clear to auscultation Abdomen: Bowel sounds Extremities: no Clubbing, no Cyanosis, no Edema Neurological: Normal gait, Normal speech Assessment/Plan - Problem List Patient Problems: All Active Problems AGGRESSION AND AGITATION; 51/50 STATUS (Acute) - Assessment Assessment: Current Active Problems Problem Status Onset AGGRESSION AND AGITATION; 51/50 STATUS Acute psychosis dyslipidemia thyroid disorder dementia Alzheimer's dementia - Plan Plan: admit to the medical center
[2018-03-25] MEDS: Multivitamin Tab PO SCH (09:25)
[2018-03-25] MEDS: Pantoprazole 40 mg EC Tab PO SCH (09:25)
--- NOTE | 2018-03-25 12:28 | Consultation ---
DATE OF CONSULTATION: 03/23/2018 REFERRING PHYSICIAN: Trinh Cruz MD TYPE OF CONSULTATION: Psychology. HISTORY OF PRESENT ILLNESS: The patient is a 67-year-old female. The patient is a resident of [facility]. The patient is being readmitted on a 5150 as a danger to others and being gravely disabled. The following is mostly by record review and the patient's self-report is minimal. The staff at the patient's facility report that she is unable to care for herself and has been striking out at staff members and other residents. The patient did not answer questions about suicidal or homicidal ideation, plan or intention at the time of this clinical interview. PAST MEDICAL HISTORY: Please see history and physical by Dr. Perez. PAST PSYCHIATRIC HISTORY: The patient was previously admitted here at [facility] on Geropsych Unit with a diagnosis of psychotic disorder, not otherwise specified, as well as dementia with behavioral disturbance. The patient is under the care of a psychiatrist at her placement. This is the most recent hospitalization with multiple previous hospitalization history. SUBSTANCE ABUSE HISTORY: The patient did not answer these questions. PSYCHOSOCIAL HISTORY: The patient remains selectively mute and did not answer any of the questions about occupational or educational history or cheondoism affiliation. She did not answer questions about physical or sexual abuse history or current legal problems. She did not answer questions about support system. Family members involved in her care. MENTAL STATUS EXAMINATION: The patient appears to be older than her stated age. The patient's attitude is guarded and suspicious. Eye contact is poor. The patient is not making any eye contact. Speech is selectively mute with episodes of screaming and yelling. Thought process is confused. The patient did not answer questions about experiencing auditory or visual hallucinations. The patient did not answer questions about suicidal ideation, plan or intention or homicidal ideation. There is some evidence of possible paranoid ideation and delusion. The patient's behavior is uncontrollable at the time of the clinical interview. The patient is banging on the tray of her Juanita chair. The patient is unable to contract for safety. Impulse control is impaired. Concentration is poor. Sensorium is alert and oriented to self only. The patient did not participate in the memory assessment. She did not participate in the interpretation of proverbs. Insight is impaired. Judgment is impaired. DIAGNOSTIC IMPRESSION: AXIS I: 1. Psychotic disorder, not otherwise specified. 2. Dementia with behavioral disturbance. 3. Impulse control disorder, not otherwise specified. AXIS II: Deferred. AXIS III: Per Dr. Perez. TREATMENT PLAN: The patient has been seen by Dr. Cruz for psychiatric evaluation and for the management of the patient's psychotropic medications. We will provide supportive psychotherapy to include limit setting and de-escalation. We will provide motivational enhancement for the patient to become compliant and stay compliant with all aspects of her care and treatment. We will encourage the patient daily to be able to demonstrate emotional and self-regulation. We will provide coping strategies for phase of life issues. We will provide reality testing as well as reality orientation, differentiation and integration. We will continue to provide supportive psychotherapy as well as boundary definitions and awareness regarding striking out at others. We will encourage the patient to verbalize her concerns versus acting out. We will also provide stress management skills to increase the patient's frustration tolerance. We will encourage the patient on a daily opportunity to verbally contract for safety for no self-harm and no harm to others. Thank you, Dr. Cruz for this consult and the opportunity to participate in this patient's care. JOB# [id number]
[2018-03-25] MEDS: Atorvastatin Calcium 10 MG TAB PO SCH (21:20)
--- NOTE | 2018-03-25 23:44 | Progress Notes ---
DATE: 03/25/2018 PSYCHIATRIC PROGRESS NOTE SUBJECTIVE: Staff was spoken to. The patient is interviewed. Mood is noted to be dysphoric. The patient is sedated at this time and has not been participating in any of the groups and hence it is decided to hold the current dose of medications and I encouraged the patient to verbalize the concerns. The patient is being closely monitored. The patient has been on 10 mg of the olanzapine at night time and then it was held last night and then this morning I asked the staff to hold off the valproic acid till the patient is becoming awake and alert. ASSESSMENT: The patient is still psychotic at this time. PLAN: To decrease the dose on the olanzapine to 5 mg and also to adjust the dose on the valproic acid because the patient is noted to be too drowsy at this time. JOB# [id number]
[2018-03-26] MEDS: Levothyroxine 0.05 Mg Tab PO SCH (06:50)
--- NOTE | 2018-03-26 08:22 | General Progress Note ---
Subjective - Review of Systems Service Date: 03/26/18 Subjective: Awake,alert but confused VS T 97.8 P74 R18 BP 129/76 Objective - Results Result Diagrams: 03/20/18 18:20 03/20/18 18:20 Recent Labs: Laboratory Last Values WBC 7.8 Th/cmm (4.8-10.8) 03/20/18 18:20 RBC 3.82 Mil/cmm (3.80-5.20) 03/20/18 18:20 Hgb 11.9 gm/dL (12-16) L 03/20/18 18:20 Hct 34.9 % (41.0-60) L 03/20/18 18:20 MCV 91.4 fl (81-100) 03/20/18 18:20 MCH 31.0 pg (27.0-31.0) 03/20/18 18:20 MCHC Differential 34.0 pg (28.0-36.0) 03/20/18 18:20 RDW 12.0 % (11.5-20.0) 03/20/18 18:20 Plt Count 347 Th/cmm (150-400) 03/20/18 18:20 MPV 7.5 fl 03/20/18 18:20 Neutrophils % 72.7 % (40.0-80.0) 03/20/18 18:20 Lymphocytes % 18.3 % (20.0-50.0) L 03/20/18 18:20 Monocytes % 8.1 % (2.0-10.0) 03/20/18 18:20 Eosinophils % 0.5 % (0.0-5.0) 03/20/18 18:20 Basophils % 0.4 % (0.0-2.0) 03/20/18 18:20 Sodium 144 mEq/L (136-145) 03/20/18 18:20 Potassium 4.6 mEq/L (3.5-5.1) 03/20/18 18:20 Chloride 107 mEq/L (98-107) 03/20/18 18:20 Carbon Dioxide 29.4 mEq/L (21.0-31.0) 03/20/18 18:20 Anion Gap 12.2 (7.0-16.0) 03/20/18 18:20 BUN 30 mg/dL (7-25) H 12/07/18 18:20 Creatinine 1.2 mg/dL (0.6-1.2) 03/20/18 18:20 Est GFR ( Amer) 57.5 ml/min (>90) 03/20/18 18:20 Est GFR (Non-Af Amer) 47.5 ml/min 03/20/18 18:20 BUN/Creatinine Ratio 25.0 03/20/18 18:20 Glucose 117 mg/dL (70-105) H 03/20/18 18:20 Calcium 9.4 mg/dL (8.6-10.3) 03/20/18 18:20 Phosphorus 4.0 mg/dL (2.5-5.0) 03/20/18 18:20 Magnesium 1.9 mg/dL (1.9-2.7) 03/20/18 18:20 Total Bilirubin 0.5 mg/dL (0.3-1.0) 03/20/18 18:20 AST 23 U/L (13-39) 03/20/18 18:20 ALT 18 U/L (7-52) 03/20/18 18:20 Alkaline Phosphatase 100 U/L (34-104) 03/20/18 18:20 Total Protein 6.3 gm/dL (6.0-8.3) 03/20/18 18:20 Albumin 3.7 gm/dL (3.7-5.3) 03/20/18 18:20 Globulin 2.6 gm/dL 03/20/18 18:20 Albumin/Globulin Ratio 1.4 (1.0-1.8) 03/20/18 18:20 Triglycerides 56 mg/dL (<150) 03/21/18 06:11 Cholesterol 185 mg/dL (<200) 03/21/18 06:11 LDL Cholesterol Direct 112 mg/dL (75-193) 03/21/18 06:11 HDL Cholesterol 58 mg/dL (23-92) 03/21/18 06:11 TSH 0.84 uIU/ml (0.34-5.60) 03/20/18 18:30 - Physical Exam Vitals and I&O: Vital Signs Temp 97.8 F 03/26/18 06:45 Pulse 74 03/26/18 06:45 Resp 18 03/26/18 06:45 BP 124/76 03/26/18 06:45 Pulse Ox 97 03/26/18 06:45 Intake & Output 03/25/18 03/26/18 03/26/18 18:59 06:59 18:59 Intake Total 120 Balance 120 Intake: Oral 120 Other: # Voids 3 Active Medications: Current Medications Acetaminophen (Tylenol) 650 mg PO Q4H PRN PRN Reason: Mild Pain / Temp above 100 Stop: 05/19/18 21:49 Last Admin: 03/25/18 11:09 Dose: 650 mg Al Hydrox/Mg Hydrox/Simethicone (Maalox) 30 ml PO Q4HR PRN PRN Reason: GI DISTRESS Stop: 05/19/18 21:49 Atorvastatin Calcium (Lipitor) 20 mg PO HS [facility]; Protocol Stop: 05/20/18 20:59 Last Admin: 03/25/18 21:20 Dose: 20 mg Cholecalciferol (Vitamin D3) 5,000 iu PO DAILY [facility] Stop: 05/20/18 08:59 Last Admin: 03/25/18 09:24 Dose: Not Given Divalproex Sodium (Depakote Dr) 250 mg PO BID [facility]; Protocol Stop: 05/20/18 14:44 Last Admin: 03/25/18 17:02 Dose: 250 mg Folic Acid (Folate) 1 mg PO HS [facility] Stop: 05/20/18 20:59 Last Admin: 03/25/18 21:20 Dose: 1 mg Haloperidol (Haldol) 1 mg PO BID PRN; Protocol PRN Reason: Agitation Stop: 05/20/18 08:59 Last Admin: 03/25/18 11:09 Dose: 1 mg Levothyroxine Sodium (Synthroid) 0.05 mg PO DAILY@0730 [facility] Stop: 05/20/18 07:29 Last Admin: 03/26/18 06:50 Dose: 0.05 mg Lorazepam (Ativan) 0.5 mg PO Q6HR PRN; Protocol PRN Reason: Anxiety Stop: 05/19/18 22:30 Last Admin: 03/26/18 03:31 Dose: 0.5 mg Magnesium Hydroxide (Milk Of Magnesia) 30 ml PO HS PRN PRN Reason: Constipation Multivitamins/Vitamin C (Theragran) 1 tab PO DAILY [facility] Stop: 05/20/18 08:59 Last Admin: 03/25/18 09:25 Dose: Not Given Mupirocin (Bactroban Oint) 1 appl NS BID [facility] Stop: 03/27/18 09:01 Last Admin: 03/25/18 17:22 Dose: Not Given Pantoprazole Sodium (Protonix) 40 mg PO DAILY [facility] Stop: 05/20/18 08:59 Last Admin: 03/25/18 09:25 Dose: Not Given Quetiapine Fumarate (Seroquel) 50 mg PO BID [facility]; Protocol Stop: 05/20/18 16:59 Last Admin: 03/25/18 17:02 Dose: 50 mg Senna (Senna) 17.2 mg PO HS [facility] Stop: 05/20/18 20:59 Last Admin: 03/25/18 21:20 Dose: 17.2 mg Tramadol HCl (Ultram) 50 mg PO BID [facility] Stop: 05/20/18 08:59 Last Admin: 03/25/18 17:03 Dose: 50 mg Zolpidem Tartrate (Ambien) 5 mg PO HS PRN PRN Reason: Insomnia Stop: 05/19/18 23:34 Last Admin: 03/25/18 21:22 Dose: 5 mg General: Alert, Oriented x3, No acute distress HEENT: Atraumatic, PERRLA, EOMI Neck: Supple Cardiovascular: Regular rate, Normal S1, Normal S2 Lungs: Clear to auscultation Abdomen: Bowel sounds Extremities: no Clubbing, no Cyanosis, no Edema Neurological: Normal gait, Normal speech Assessment/Plan - Problem List Patient Problems: All Active Problems AGGRESSION AND AGITATION; 51/50 STATUS (Acute) - Assessment Assessment: Current Active Problems Problem Status Onset AGGRESSION AND AGITATION; 51/50 STATUS Acute psychosis dyslipidemia thyroid disorder dementia Alzheimer's dementia - Plan [facility] Nutritional Asmnt/Malnutr-PDOC - Dietary Evaluation Malnutrition Findings (Please click <Entered> for more info): Nutritional Asmnt/Malnutrition Start: 03/25/18 15: 01 Text: Status: Complete Freq: Protocol: Document 03/25/18 15:01 LCCARLG (Rec: 03/25/18 15:15 MARIA LUISAG [email or web address]) Nutritional Asmnt/Malnutrition Patient General Information Nutritional Screening Moderate Risk Diagnosis psychosis Pertinent Medical Hx/Surgical Hx dyslipidemia, throid disorder, ddmentia, alzheimer's, acute kidney injury Subjective Information Pt seen sitting in laine-chair, crying, very confused, not able to communicate. Per EMR, PO intake 50-75%. FARM IMPLEMENT ENGINE MECHANIC stated pt is able to eat well, some time PO intake low d/t mental status or sleepy by medication . Pt needs total assist with meals, eats slowly. Current Diet Order/ Nutrition Support [facility] Pertinent Medications lipitor, vit D3, folate, synthroid, theragran, protonix , seroquel, senna Pertinent Labs 03/20 BUN 30, Cr 1.2, glucose 117, albe 3.7 Nutritional Hx/Data Height 1.63 m Height (Calculated Centimeters) 162.6 Current Weight (lbs) 49.895 kg Weight (Calculated Kilograms) 49.9 Weight (Calculated Grams) 07612.2 [place] Body Weight 120 Body Mass Index (BMI) 18.8 Weight Status Approriate GI Symptoms GI Symptoms None Last BM 03/22 Difficult in: None Skin Integrity/Comment: mere thapa 16 Current %PO Fair (50-74%) Estimated Nutritional Goals BEE in Kcals: Using Current wt Calories/Kcals/Kg 27-32 Kcals Calculated 2396-1875 Protein: Using Current wt Protein g/k-1.2 Protein Calculated 50-60 Fluid: ml 1350-1600ml (1ml/kcal) Nutritional Problem No current Nutrition Prob Problem N/A Intervention/Recommendation Comments 1. Continue with [facility] diet as ordered. Nurses to assist pt with all meals. 2. Monitor PO intake, wt, labs and skin integrity 3. F/U as low risk in 7 days, 04/01, PO check 03/27 Expected Outcomes/Goals Expected Outcomes/Goals 1. PO intake to meet at least 75% of nutritional needs. 2. Wt stability, skin to remain intact, labs to approach WNL.
[2018-03-26] MEDS: Multivitamin Tab PO SCH (09:28)
[2018-03-26] MEDS: Pantoprazole 40 mg EC Tab PO SCH (09:28)
--- NOTE | 2018-03-26 11:19 | Progress Notes ---
DATE: 03/26/2018 PSYCHIATRIC PROGRESS NOTE SUBJECTIVE: Staff was spoken to. The patient is interviewed. Mood is noted to be less irritable. The patient, however, has been noted to be very drowsy, and hence, it is decided to discontinue the Seroquel and then maintain the patient on Depakote and Haldol on a p.r.n. basis. The patient has been isolative and withdrawn at this time and participation in the groups is noted to be very minimal. ASSESSMENT: The patient is still confused and agitated. PLAN: To continue the patient with supportive therapy. I encouraged the patient to verbalize the concerns rather than to act out. JOB# [id number]
[2018-03-26] MEDS: Atorvastatin Calcium 10 MG TAB PO SCH (21:46)
[2018-03-27] MEDS: Levothyroxine 0.05 Mg Tab PO SCH (06:45)
--- NOTE | 2018-03-27 08:23 | General Progress Note ---
Subjective - Review of Systems Service Date: 03/27/18 Subjective: Awake,alert but confused VS T 97.9 P87 R20 BP 125/72 Objective - Results Result Diagrams: 03/20/18 18:20 03/20/18 18:20 Recent Labs: Laboratory Last Values WBC 7.8 Th/cmm (4.8-10.8) 03/20/18 18:20 RBC 3.82 Mil/cmm (3.80-5.20) 03/20/18 18:20 Hgb 11.9 gm/dL (12-16) L 03/20/18 18:20 Hct 34.9 % (41.0-60) L 03/20/18 18:20 MCV 91.4 fl (81-100) 03/20/18 18:20 MCH 31.0 pg (27.0-31.0) 03/20/18 18:20 MCHC Differential 34.0 pg (28.0-36.0) 03/20/18 18:20 RDW 12.0 % (11.5-20.0) 03/20/18 18:20 Plt Count 347 Th/cmm (150-400) 03/20/18 18:20 MPV 7.5 fl 03/20/18 18:20 Neutrophils % 72.7 % (40.0-80.0) 03/20/18 18:20 Lymphocytes % 18.3 % (20.0-50.0) L 03/20/18 18:20 Monocytes % 8.1 % (2.0-10.0) 03/20/18 18:20 Eosinophils % 0.5 % (0.0-5.0) 03/20/18 18:20 Basophils % 0.4 % (0.0-2.0) 03/20/18 18:20 Sodium 144 mEq/L (136-145) 03/20/18 18:20 Potassium 4.6 mEq/L (3.5-5.1) 03/20/18 18:20 Chloride 107 mEq/L (98-107) 03/20/18 18:20 Carbon Dioxide 29.4 mEq/L (21.0-31.0) 03/20/18 18:20 Anion Gap 12.2 (7.0-16.0) 03/20/18 18:20 BUN 30 mg/dL (7-25) H 12/07/18 18:20 Creatinine 1.2 mg/dL (0.6-1.2) 03/20/18 18:20 Est GFR ( Amer) 57.5 ml/min (>90) 03/20/18 18:20 Est GFR (Non-Af Amer) 47.5 ml/min 03/20/18 18:20 BUN/Creatinine Ratio 25.0 03/20/18 18:20 Glucose 117 mg/dL (70-105) H 03/20/18 18:20 Calcium 9.4 mg/dL (8.6-10.3) 03/20/18 18:20 Phosphorus 4.0 mg/dL (2.5-5.0) 03/20/18 18:20 Magnesium 1.9 mg/dL (1.9-2.7) 03/20/18 18:20 Total Bilirubin 0.5 mg/dL (0.3-1.0) 03/20/18 18:20 AST 23 U/L (13-39) 03/20/18 18:20 ALT 18 U/L (7-52) 03/20/18 18:20 Alkaline Phosphatase 100 U/L (34-104) 03/20/18 18:20 Total Protein 6.3 gm/dL (6.0-8.3) 03/20/18 18:20 Albumin 3.7 gm/dL (3.7-5.3) 03/20/18 18:20 Globulin 2.6 gm/dL 03/20/18 18:20 Albumin/Globulin Ratio 1.4 (1.0-1.8) 03/20/18 18:20 Triglycerides 56 mg/dL (<150) 03/21/18 06:11 Cholesterol 185 mg/dL (<200) 03/21/18 06:11 LDL Cholesterol Direct 112 mg/dL (75-193) 03/21/18 06:11 HDL Cholesterol 58 mg/dL (23-92) 03/21/18 06:11 TSH 0.84 uIU/ml (0.34-5.60) 03/20/18 18:30 - Physical Exam Vitals and I&O: Vital Signs Temp 97.9 F 03/26/18 16:05 Pulse 87 03/26/18 16:05 Resp 20 03/26/18 16:05 BP 125/92 03/26/18 16:05 Pulse Ox 97 03/26/18 16:05 Intake & Output 03/26/18 03/27/18 03/27/18 18:59 06:59 18:59 Intake Total 120 Balance 120 Intake: Oral 120 Other: # Voids 1 Active Medications: Current Medications Acetaminophen (Tylenol) 650 mg PO Q4H PRN PRN Reason: Mild Pain / Temp above 100 Stop: 05/19/18 21:49 Last Admin: 03/25/18 11:09 Dose: 650 mg Al Hydrox/Mg Hydrox/Simethicone (Maalox) 30 ml PO Q4HR PRN PRN Reason: GI DISTRESS Stop: 05/19/18 21:49 Atorvastatin Calcium (Lipitor) 20 mg PO HS [facility]; Protocol Stop: 05/20/18 20:59 Last Admin: 03/26/18 21:46 Dose: 20 mg Cholecalciferol (Vitamin D3) 5,000 iu PO DAILY [facility] Stop: 05/20/18 08:59 Last Admin: 03/26/18 09:28 Dose: 5,000 iu Folic Acid (Folate) 1 mg PO HS [facility] Stop: 05/20/18 20:59 Last Admin: 03/26/18 21:47 Dose: 1 mg Haloperidol (Haldol) 1 mg PO BID PRN; Protocol PRN Reason: Agitation Stop: 05/20/18 08:59 Last Admin: 03/27/18 01:37 Dose: 1 mg Levothyroxine Sodium (Synthroid) 0.05 mg PO DAILY@0730 [facility] Stop: 05/20/18 07:29 Last Admin: 03/27/18 06:45 Dose: 0.05 mg Lorazepam (Ativan) 0.5 mg PO Q6HR PRN; Protocol PRN Reason: Anxiety Stop: 05/19/18 22:30 Last Admin: 03/27/18 05:41 Dose: 0.5 mg Magnesium Hydroxide (Milk Of Magnesia) 30 ml PO HS PRN PRN Reason: Constipation Multivitamins/Vitamin C (Theragran) 1 tab PO DAILY [facility] Stop: 05/20/18 08:59 Last Admin: 03/26/18 09:28 Dose: 1 tab Mupirocin (Bactroban Oint) 1 appl NS BID [facility] Stop: 03/27/18 09:01 Last Admin: 03/26/18 17:08 Dose: 1 appl Pantoprazole Sodium (Protonix) 40 mg PO DAILY [facility] Stop: 05/20/18 08:59 Last Admin: 03/26/18 09:28 Dose: 40 mg Senna (Senna) 17.2 mg PO HS [facility] Stop: 05/20/18 20:59 Last Admin: 03/26/18 21:47 Dose: 17.2 mg Tramadol HCl (Ultram) 50 mg PO BID [facility] Stop: 05/20/18 08:59 Last Admin: 03/26/18 17:06 Dose: Not Given Valproate Sodium (Depakene) 250 mg PO BID [facility]; Protocol Stop: 05/25/18 16:59 Last Admin: 03/26/18 17:08 Dose: 250 mg Zolpidem Tartrate (Ambien) 5 mg PO HS PRN PRN Reason: Insomnia Stop: 05/19/18 23:34 Last Admin: 03/26/18 21:47 Dose: 5 mg General: Alert, Oriented x3, No acute distress HEENT: Atraumatic, PERRLA, EOMI Neck: Supple Cardiovascular: Regular rate, Normal S1, Normal S2 Lungs: Clear to auscultation Abdomen: Bowel sounds Extremities: no Clubbing, no Cyanosis, no Edema Neurological: Normal gait, Normal speech Assessment/Plan - Problem List Patient Problems: All Active Problems AGGRESSION AND AGITATION; 51/50 STATUS (Acute) - Assessment Assessment: Current Active Problems Problem Status Onset AGGRESSION AND AGITATION; 51/50 STATUS Acute psychosis dyslipidemia thyroid disorder dementia Alzheimer's dementia - Plan Plan: admit to [facility] Nutritional Asmnt/Malnutr-PDOC - Dietary Evaluation Malnutrition Findings (Please click <Entered> for more info): Nutritional Asmnt/Malnutrition Start: 03/25/18 15: 01 Text: Status: Complete Freq: Protocol: Document 03/25/18 15:01 LCHENG (Rec: 03/25/18 15:15 [email or web address]) Nutritional Asmnt/Malnutrition Patient General Information Nutritional Screening Moderate Risk Diagnosis psychosis Pertinent Medical Hx/Surgical Hx dyslipidemia, throid disorder, ddmentia, alzheimer's, acute kidney injury Subjective Information Pt seen sitting in laine-chair, crying, very confused, not able to communicate. Per EMR, PO intake 50-75%. ELECTRIC METER TECHNICIAN stated pt is able to eat well, some time PO intake low d/t mental status or sleepy by medication . Pt needs total assist with meals, eats slowly. Current Diet Order/ Nutrition Support [facility] soft [facility] Pertinent Medications lipitor, vit D3, folate, synthroid, theragran, protonix , seroquel, senna Pertinent Labs 03/20 BUN 30, Cr 1.2, glucose 117, albe 3.7 Nutritional Hx/Data Height 1.63 m Height (Calculated Centimeters) 162.6 Current Weight (lbs) 49.895 kg Weight (Calculated Kilograms) 49.9 Weight (Calculated Grams) 80250.2 [place] Body Weight 120 Body Mass Index (BMI) 18.8 Weight Status Approriate GI Symptoms GI Symptoms None Last BM 03/22 Difficult in: None Skin Integrity/Comment: mere thapa 16 Current %PO Fair (50-74%) Estimated Nutritional Goals BEE in Kcals: Using Current wt Calories/Kcals/Kg 27-32 Kcals Calculated 5028-0394 Protein: Using Current wt Protein g/k-1.2 Protein Calculated 50-60 Fluid: ml 1350-1600ml (1ml/kcal) Nutritional Problem No current Nutrition Prob Problem N/A Intervention/Recommendation Comments 1. Continue with [facility] soft ground diet as ordered. Nurses to assist pt with all meals. 2. Monitor PO intake, wt, labs and skin integrity 3. F/U as low risk in 7 days, 04/01, PO check 03/27 Expected Outcomes/Goals Expected Outcomes/Goals 1. PO intake to meet at least 75% of nutritional needs. 2. Wt stability, skin to remain intact, labs to approach WNL.
[2018-03-27] MEDS: Pantoprazole 40 mg EC Tab PO SCH (10:00)
[2018-03-27] MEDS: Multivitamin Tab PO SCH (10:00)
[2018-03-27] MEDS: Atorvastatin Calcium 10 MG TAB PO SCH (21:43)
--- NOTE | 2018-03-28 00:43 | Progress Notes ---
DATE: 03/27/2018 PSYCHIATRIC PROGRESS NOTE SUBJECTIVE: Staff was spoken to. The patient is interviewed. Mood is noted to be irritable. Affect is constricted. The patient has been getting easily agitated. The patient is very very drowsy and hence the Seroquel has been kept on hold and the patient is continued on the Depakote, but the patient is getting easily agitated. The patient is not able to communicate much of anything. The patient has been very dysphoric. ASSESSMENT: The patient is grossly demented and impulsive. PLAN: To continue the patient with the supportive therapy. I encouraged the patient to verbalize the concerns rather than to act out. JOB# [id number]
--- NOTE | 2018-03-28 04:55 | General Progress Note ---
Subjective - Review of Systems Service Date: 03/28/18 Subjective: Awake,alert but confused VS T 98.0 P69 R18 BP 136/86 Objective - Results Result Diagrams: 03/20/18 18:20 03/20/18 18:20 Recent Labs: Laboratory Last Values WBC 7.8 Th/cmm (4.8-10.8) 03/20/18 18:20 RBC 3.82 Mil/cmm (3.80-5.20) 03/20/18 18:20 Hgb 11.9 gm/dL (12-16) L 03/20/18 18:20 Hct 34.9 % (41.0-60) L 03/20/18 18:20 MCV 91.4 fl (81-100) 03/20/18 18:20 MCH 31.0 pg (27.0-31.0) 03/20/18 18:20 MCHC Differential 34.0 pg (28.0-36.0) 03/20/18 18:20 RDW 12.0 % (11.5-20.0) 03/20/18 18:20 Plt Count 347 Th/cmm (150-400) 03/20/18 18:20 MPV 7.5 fl 03/20/18 18:20 Neutrophils % 72.7 % (40.0-80.0) 03/20/18 18:20 Lymphocytes % 18.3 % (20.0-50.0) L 03/20/18 18:20 Monocytes % 8.1 % (2.0-10.0) 03/20/18 18:20 Eosinophils % 0.5 % (0.0-5.0) 03/20/18 18:20 Basophils % 0.4 % (0.0-2.0) 03/20/18 18:20 Sodium 144 mEq/L (136-145) 03/20/18 18:20 Potassium 4.6 mEq/L (3.5-5.1) 03/20/18 18:20 Chloride 107 mEq/L (98-107) 03/20/18 18:20 Carbon Dioxide 29.4 mEq/L (21.0-31.0) 03/20/18 18:20 Anion Gap 12.2 (7.0-16.0) 03/20/18 18:20 BUN 30 mg/dL (7-25) H 12/07/18 18:20 Creatinine 1.2 mg/dL (0.6-1.2) 03/20/18 18:20 Est GFR ( Amer) 57.5 ml/min (>90) 03/20/18 18:20 Est GFR (Non-Af Amer) 47.5 ml/min 03/20/18 18:20 BUN/Creatinine Ratio 25.0 03/20/18 18:20 Glucose 117 mg/dL (70-105) H 03/20/18 18:20 Calcium 9.4 mg/dL (8.6-10.3) 03/20/18 18:20 Phosphorus 4.0 mg/dL (2.5-5.0) 03/20/18 18:20 Magnesium 1.9 mg/dL (1.9-2.7) 03/20/18 18:20 Total Bilirubin 0.5 mg/dL (0.3-1.0) 03/20/18 18:20 AST 23 U/L (13-39) 03/20/18 18:20 ALT 18 U/L (7-52) 03/20/18 18:20 Alkaline Phosphatase 100 U/L (34-104) 03/20/18 18:20 Total Protein 6.3 gm/dL (6.0-8.3) 03/20/18 18:20 Albumin 3.7 gm/dL (3.7-5.3) 03/20/18 18:20 Globulin 2.6 gm/dL 03/20/18 18:20 Albumin/Globulin Ratio 1.4 (1.0-1.8) 03/20/18 18:20 Triglycerides 56 mg/dL (<150) 03/21/18 06:11 Cholesterol 185 mg/dL (<200) 03/21/18 06:11 LDL Cholesterol Direct 112 mg/dL (75-193) 03/21/18 06:11 HDL Cholesterol 58 mg/dL (23-92) 03/21/18 06:11 TSH 0.84 uIU/ml (0.34-5.60) 03/20/18 18:30 - Physical Exam Vitals and I&O: Vital Signs Temp 98.0 F 03/27/18 14:00 Pulse 69 03/27/18 17:00 Resp 18 03/27/18 17:00 BP 136/86 03/27/18 14:00 Pulse Ox 94 03/27/18 14:00 Intake & Output 03/27/18 03/27/18 03/28/18 06:59 18:59 06:59 Intake Total 120 240 Balance 120 240 Intake: Oral 120 240 Other: # Voids 1 1 # Bowel Movements 1 Active Medications: Current Medications Acetaminophen (Tylenol) 650 mg PO Q4H PRN PRN Reason: Mild Pain / Temp above 100 Stop: 05/19/18 21:49 Last Admin: 03/25/18 11:09 Dose: 650 mg Al Hydrox/Mg Hydrox/Simethicone (Maalox) 30 ml PO Q4HR PRN PRN Reason: GI DISTRESS Stop: 05/19/18 21:49 Atorvastatin Calcium (Lipitor) 20 mg PO HS [facility]; Protocol Stop: 05/20/18 20:59 Last Admin: 03/27/18 21:43 Dose: 20 mg Cholecalciferol (Vitamin D3) 5,000 iu PO DAILY [facility] Stop: 05/20/18 08:59 Last Admin: 03/27/18 10:00 Dose: 5,000 iu Folic Acid (Folate) 1 mg PO HS [facility] Stop: 05/20/18 20:59 Last Admin: 03/27/18 21:43 Dose: 1 mg Haloperidol (Haldol) 1 mg PO BID PRN; Protocol PRN Reason: Agitation Stop: 05/20/18 08:59 Last Admin: 03/27/18 13:40 Dose: 1 mg Levothyroxine Sodium (Synthroid) 0.05 mg PO DAILY@0730 [facility] Stop: 05/20/18 07:29 Last Admin: 03/27/18 06:45 Dose: 0.05 mg Lorazepam (Ativan) 0.5 mg PO Q6HR PRN; Protocol PRN Reason: Anxiety Stop: 05/19/18 22:30 Last Admin: 03/27/18 23:54 Dose: 0.5 mg Magnesium Hydroxide (Milk Of Magnesia) 30 ml PO HS PRN PRN Reason: Constipation Multivitamins/Vitamin C (Theragran) 1 tab PO DAILY [facility] Stop: 05/20/18 08:59 Last Admin: 03/27/18 10:00 Dose: 1 tab Pantoprazole Sodium (Protonix) 40 mg PO DAILY [facility] Stop: 05/20/18 08:59 Last Admin: 03/27/18 10:00 Dose: 40 mg Senna (Senna) 17.2 mg PO HS [facility] Stop: 05/20/18 20:59 Last Admin: 03/27/18 21:43 Dose: 17.2 mg Tramadol HCl (Ultram) 50 mg PO BID [facility] Stop: 05/20/18 08:59 Last Admin: 03/27/18 17:42 Dose: Not Given Valproate Sodium (Depakene) 250 mg PO BID [facility]; Protocol Stop: 05/25/18 16:59 Last Admin: 03/27/18 17:42 Dose: Not Given Zolpidem Tartrate (Ambien) 5 mg PO HS PRN PRN Reason: Insomnia Stop: 05/19/18 23:34 Last Admin: 03/26/18 21:47 Dose: 5 mg General: Alert, Oriented x3, No acute distress HEENT: Atraumatic, PERRLA, EOMI Neck: Supple Cardiovascular: Regular rate, Normal S1, Normal S2 Lungs: Clear to auscultation Abdomen: Bowel sounds Extremities: no Clubbing, no Cyanosis, no Edema Neurological: Normal gait, Normal speech Assessment/Plan - Problem List Patient Problems: All Active Problems AGGRESSION AND AGITATION; 51/50 STATUS (Acute) - Assessment Assessment: Current Active Problems Problem Status Onset AGGRESSION AND AGITATION; 51/50 STATUS Acute psychosis dyslipidemia thyroid disorder dementia Alzheimer's dementia - Plan Plan: admit to [facility] Nutritional Asmnt/Malnutr-PDOC - Dietary Evaluation Malnutrition Findings (Please click <Entered> for more info): Nutritional Asmnt/Malnutrition Start: 03/25/18 15: 01 Text: Status: Complete Freq: Protocol: Document 03/25/18 15:01 LCHENG (Rec: 03/25/18 15:15 [email or web address]) Nutritional Asmnt/Malnutrition Patient General Information Nutritional Screening Moderate Risk Diagnosis psychosis Pertinent Medical Hx/Surgical Hx dyslipidemia, throid disorder, ddmentia, alzheimer's, acute kidney injury Subjective Information Pt seen sitting in laine-chair, crying, very confused, not able to communicate. Per EMR, PO intake 50-75%. SHIPMASTER stated pt is able to eat well, some time PO intake low d/t mental status or sleepy by medication . Pt needs total assist with meals, eats slowly. Current Diet Order/ Nutrition Support [facility] soft ground Pertinent Medications lipitor, vit D3, folate, synthroid, theragran, protonix , seroquel, senna Pertinent Labs 03/20 BUN 30, Cr 1.2, glucose 117, albe 3.7 Nutritional Hx/Data Height 1.63 m Height (Calculated Centimeters) 162.6 Current Weight (lbs) 49.895 kg Weight (Calculated Kilograms) 49.9 Weight (Calculated Grams) 50463.2 [place] Body Weight 120 Body Mass Index (BMI) 18.8 Weight Status Approriate GI Symptoms GI Symptoms None Last BM 03/22 Difficult in: None Skin Integrity/Comment: mere thapa 16 Current %PO Fair (50-74%) Estimated Nutritional Goals BEE in Kcals: Using Current wt Calories/Kcals/Kg 27-32 Kcals Calculated 0718-1605 Protein: Using Current wt Protein g/k-1.2 Protein Calculated 50-60 Fluid: ml 1350-1600ml (1ml/kcal) Nutritional Problem No current Nutrition Prob Problem N/A Intervention/Recommendation Comments 1. Continue with [facility] soft ground diet as ordered. Nurses to assist pt with all meals. 2. Monitor PO intake, wt, labs and skin integrity 3. F/U as low risk in 7 days, 04/01, PO check 03/27 Expected Outcomes/Goals Expected Outcomes/Goals 1. PO intake to meet at least 75% of nutritional needs. 2. Wt stability, skin to remain intact, labs to approach WNL.
[2018-03-28] MEDS: Levothyroxine 0.05 Mg Tab PO SCH (07:00)
[2018-03-28] MEDS: Multivitamin Tab PO SCH (09:28)
[2018-03-28] MEDS: Pantoprazole 40 mg EC Tab PO SCH (09:28)
--- NOTE | 2018-03-28 13:02 | Progress Notes ---
DATE: 03/28/2018 SUBJECTIVE: Staff was spoken to. The patient is interviewed. The patient is grossly psychotic and has been not able to contract for safety. The patient has been banging on the GD chair and the patient has been having difficult time to cope with the stress. No side effects to the medications are noted at this time. In view of her impulsivity, the Depakote is going to be made in 250 mg 3 times a day and the patient is going to be placed on 25 mg twice a day of the Seroquel and we are very careful with the patient because the minute she had a little bit of Seroquel she has been presenting with drowsiness and the patient is going to be closely monitored with 25 mg of the Seroquel twice a day and the Depakote is going to be given for the mood swings and the patient is going to be followed up with the supportive therapy. JOB# [id number]
[2018-03-28] MEDS: Atorvastatin Calcium 10 MG TAB PO SCH (21:55)
--- NOTE | 2018-03-29 05:49 | General Progress Note ---
Subjective - Review of Systems Service Date: 03/29/18 Subjective: Awake,alert but confused VS T 97.3 P72 R18 BP 119/67 Objective - Results Result Diagrams: 03/20/18 18:20 03/20/18 18:20 Recent Labs: Laboratory Last Values WBC 7.8 Th/cmm (4.8-10.8) 03/20/18 18:20 RBC 3.82 Mil/cmm (3.80-5.20) 03/20/18 18:20 Hgb 11.9 gm/dL (12-16) L 03/20/18 18:20 Hct 34.9 % (41.0-60) L 03/20/18 18:20 MCV 91.4 fl (81-100) 03/20/18 18:20 MCH 31.0 pg (27.0-31.0) 03/20/18 18:20 MCHC Differential 34.0 pg (28.0-36.0) 03/20/18 18:20 RDW 12.0 % (11.5-20.0) 03/20/18 18:20 Plt Count 347 Th/cmm (150-400) 03/20/18 18:20 MPV 7.5 fl 03/20/18 18:20 Neutrophils % 72.7 % (40.0-80.0) 03/20/18 18:20 Lymphocytes % 18.3 % (20.0-50.0) L 03/20/18 18:20 Monocytes % 8.1 % (2.0-10.0) 03/20/18 18:20 Eosinophils % 0.5 % (0.0-5.0) 03/20/18 18:20 Basophils % 0.4 % (0.0-2.0) 03/20/18 18:20 Sodium 144 mEq/L (136-145) 03/20/18 18:20 Potassium 4.6 mEq/L (3.5-5.1) 03/20/18 18:20 Chloride 107 mEq/L (98-107) 03/20/18 18:20 Carbon Dioxide 29.4 mEq/L (21.0-31.0) 03/20/18 18:20 Anion Gap 12.2 (7.0-16.0) 03/20/18 18:20 BUN 30 mg/dL (7-25) H 12/07/18 18:20 Creatinine 1.2 mg/dL (0.6-1.2) 03/20/18 18:20 Est GFR ( Amer) 57.5 ml/min (>90) 03/20/18 18:20 Est GFR (Non-Af Amer) 47.5 ml/min 03/20/18 18:20 BUN/Creatinine Ratio 25.0 03/20/18 18:20 Glucose 117 mg/dL (70-105) H 03/20/18 18:20 Calcium 9.4 mg/dL (8.6-10.3) 03/20/18 18:20 Phosphorus 4.0 mg/dL (2.5-5.0) 03/20/18 18:20 Magnesium 1.9 mg/dL (1.9-2.7) 03/20/18 18:20 Total Bilirubin 0.5 mg/dL (0.3-1.0) 03/20/18 18:20 AST 23 U/L (13-39) 03/20/18 18:20 ALT 18 U/L (7-52) 03/20/18 18:20 Alkaline Phosphatase 100 U/L (34-104) 03/20/18 18:20 Total Protein 6.3 gm/dL (6.0-8.3) 03/20/18 18:20 Albumin 3.7 gm/dL (3.7-5.3) 03/20/18 18:20 Globulin 2.6 gm/dL 03/20/18 18:20 Albumin/Globulin Ratio 1.4 (1.0-1.8) 03/20/18 18:20 Triglycerides 56 mg/dL (<150) 03/21/18 06:11 Cholesterol 185 mg/dL (<200) 03/21/18 06:11 LDL Cholesterol Direct 112 mg/dL (75-193) 03/21/18 06:11 HDL Cholesterol 58 mg/dL (23-92) 03/21/18 06:11 TSH 0.84 uIU/ml (0.34-5.60) 03/20/18 18:30 - Physical Exam Vitals and I&O: Vital Signs Temp 97.3 F 03/28/18 20:00 Pulse 72 03/28/18 20:00 Resp 18 03/28/18 20:00 BP 119/67 03/28/18 20:00 Pulse Ox 97 03/28/18 20:00 Intake & Output 03/28/18 03/28/18 03/29/18 06:59 18:59 06:59 Intake Total 240 60 Balance 240 60 Weight (lbs) 49.895 kg Intake: Oral 240 60 Other: # Voids 3 2 # Bowel Movements 0 0 Weight Source Bedscale Active Medications: Current Medications Acetaminophen (Tylenol) 650 mg PO Q4H PRN PRN Reason: Mild Pain / Temp above 100 Stop: 05/19/18 21:49 Last Admin: 03/25/18 11:09 Dose: 650 mg Al Hydrox/Mg Hydrox/Simethicone (Maalox) 30 ml PO Q4HR PRN PRN Reason: GI DISTRESS Stop: 05/19/18 21:49 Atorvastatin Calcium (Lipitor) 20 mg PO HS [facility]; Protocol Stop: 05/20/18 20:59 Last Admin: 03/28/18 21:55 Dose: 20 mg Cholecalciferol (Vitamin D3) 5,000 iu PO DAILY [facility] Stop: 05/20/18 08:59 Last Admin: 03/28/18 09:28 Dose: 5,000 iu Folic Acid (Folate) 1 mg PO HS [facility] Stop: 05/20/18 20:59 Last Admin: 03/28/18 21:56 Dose: 1 mg Haloperidol (Haldol) 1 mg PO BID PRN; Protocol PRN Reason: Agitation Stop: 05/20/18 08:59 Last Admin: 03/27/18 13:40 Dose: 1 mg Levothyroxine Sodium (Synthroid) 0.05 mg PO DAILY@0730 [facility] Stop: 05/20/18 07:29 Last Admin: 03/28/18 07:00 Dose: 0.05 mg Magnesium Hydroxide (Milk Of Magnesia) 30 ml PO HS PRN PRN Reason: Constipation Multivitamins/Vitamin C (Theragran) 1 tab PO DAILY [facility] Stop: 05/20/18 08:59 Last Admin: 03/28/18 09:28 Dose: 1 tab Pantoprazole Sodium (Protonix) 40 mg PO DAILY [facility] Stop: 05/20/18 08:59 Last Admin: 03/28/18 09:28 Dose: 40 mg Quetiapine Fumarate (Seroquel) 25 mg PO BID [facility]; Protocol Stop: 05/27/18 16:59 Last Admin: 03/28/18 16:23 Dose: 25 mg Senna (Senna) 17.2 mg PO HS [facility] Stop: 05/20/18 20:59 Last Admin: 03/28/18 21:56 Dose: 17.2 mg Tramadol HCl (Ultram) 50 mg PO BID [facility] Stop: 05/20/18 08:59 Last Admin: 03/28/18 16:23 Dose: 50 mg Valproate Sodium (Depakene) 250 mg PO TID [facility]; Protocol Stop: 05/27/18 13:59 Last Admin: 03/28/18 21:56 Dose: 250 mg Zolpidem Tartrate (Ambien) 5 mg PO HS PRN PRN Reason: Insomnia Stop: 05/19/18 23:34 Last Admin: 03/28/18 21:55 Dose: 5 mg General: Alert, Oriented x3, No acute distress HEENT: Atraumatic, PERRLA, EOMI Neck: Supple Cardiovascular: Regular rate, Normal S1, Normal S2 Lungs: Clear to auscultation Abdomen: Bowel sounds Extremities: no Clubbing, no Cyanosis, no Edema Neurological: Normal gait, Normal speech Assessment/Plan - Problem List Patient Problems: All Active Problems AGGRESSION AND AGITATION; 51/50 STATUS (Acute) - Assessment Assessment: Current Active Problems Problem Status Onset AGGRESSION AND AGITATION; 51/50 STATUS Acute psychosis dyslipidemia thyroid disorder dementia Alzheimer's dementia - Plan Plan: admit to [facility] Nutritional Asmnt/Malnutr-PDOC - Dietary Evaluation Malnutrition Findings (Please click <Entered> for more info): Nutritional Asmnt/Malnutrition Start: 03/25/18 15: 01 Text: Status: Complete Freq: Protocol: Document 03/25/18 15:01 LCHENG (Rec: 03/25/18 15:15 [email or web address] [email or web address]) Nutritional Asmnt/Malnutrition Patient General Information Nutritional Screening Moderate Risk Diagnosis psychosis Pertinent Medical Hx/Surgical Hx dyslipidemia, throid disorder, ddmentia, alzheimer's, acute kidney injury Subjective Information Pt seen sitting in laine-chair, crying, very confused, not able to communicate. Per EMR, PO intake 50-75%. MANAGER ADOBE stated pt is able to eat well, some time PO intake low d/t mental status or sleepy by medication . Pt needs total assist with meals, eats slowly. Current Diet Order/ Nutrition Support [facility] Pertinent Medications lipitor, vit D3, folate, synthroid, theragran, protonix , seroquel, senna Pertinent Labs 03/20 BUN 30, Cr 1.2, glucose 117, albe 3.7 Nutritional Hx/Data Height 1.63 m Height (Calculated Centimeters) 162.6 Current Weight (lbs) 49.895 kg Weight (Calculated Kilograms) 49.9 Weight (Calculated Grams) 22183.2 [place] Body Weight 120 Body Mass Index (BMI) 18.8 Weight Status Approriate GI Symptoms GI Symptoms None Last BM 03/22 Difficult in: None Skin Integrity/Comment: mere thapa 16 Current %PO Fair (50-74%) Estimated Nutritional Goals BEE in Kcals: Using Current wt Calories/Kcals/Kg 27-32 Kcals Calculated 0709-7867 Protein: Using Current wt Protein g/k-1.2 Protein Calculated 50-60 Fluid: ml 1350-1600ml (1ml/kcal) Nutritional Problem No current Nutrition Prob Problem N/A Intervention/Recommendation Comments 1. Continue with [facility] soft [facility] diet as ordered. Nurses to assist pt with all meals. 2. Monitor PO intake, wt, labs and skin integrity 3. F/U as low risk in 7 days, 04/01, PO check 03/27 Expected Outcomes/Goals Expected Outcomes/Goals 1. PO intake to meet at least 75% of nutritional needs. 2. Wt stability, skin to remain intact, labs to approach WNL.
[2018-03-29] MEDS: Levothyroxine 0.05 Mg Tab PO SCH (06:59)
[2018-03-29] MEDS: Pantoprazole 40 mg EC Tab PO SCH (09:09)
[2018-03-29] MEDS: Multivitamin Tab PO SCH (09:09)
--- NOTE | 2018-03-29 20:44 | Progress Notes ---
DATE: 03/29/2018 PSYCHIATRIC PROGRESS NOTE SUBJECTIVE: Staff was spoken to. The patient is interviewed. Mood is noted to be irritable. Affect is constricted. The patient has been constantly hitting the GD chair. The patient has no insight into her illness and the medication has been decreased. The patient is getting easily agitated. Medication is slightly increased. The patient has been having difficult time to keep her eyes open. The patient is currently on Seroquel, which is increased to 25 mg 3 times a day and the patient is going to be followed up with the supportive therapy. The patient is going to be continued with her Depakote. ASSESSMENT: The patient is still impulsive. PLAN: To continue the patient with the supportive therapy. Encouraged the patient to verbalize the concerns rather than to act out. JOB# [id number]
[2018-03-29] MEDS: Atorvastatin Calcium 10 MG TAB PO SCH (20:58)
[2018-03-30] MEDS: Levothyroxine 0.05 Mg Tab PO SCH (06:56)
--- NOTE | 2018-03-30 08:07 | General Progress Note ---
Subjective - Review of Systems Service Date: 03/30/18 Subjective: Awake,alert but confused VS T 98.0 P96 R20 BP 130/77 Objective - Results Result Diagrams: 03/20/18 18:20 03/20/18 18:20 Recent Labs: Laboratory Last Values WBC 7.8 Th/cmm (4.8-10.8) 03/20/18 18:20 RBC 3.82 Mil/cmm (3.80-5.20) 03/20/18 18:20 Hgb 11.9 gm/dL (12-16) L 03/20/18 18:20 Hct 34.9 % (41.0-60) L 03/20/18 18:20 MCV 91.4 fl (81-100) 03/20/18 18:20 MCH 31.0 pg (27.0-31.0) 03/20/18 18:20 MCHC Differential 34.0 pg (28.0-36.0) 03/20/18 18:20 RDW 12.0 % (11.5-20.0) 03/20/18 18:20 Plt Count 347 Th/cmm (150-400) 03/20/18 18:20 MPV 7.5 fl 03/20/18 18:20 Neutrophils % 72.7 % (40.0-80.0) 03/20/18 18:20 Lymphocytes % 18.3 % (20.0-50.0) L 03/20/18 18:20 Monocytes % 8.1 % (2.0-10.0) 03/20/18 18:20 Eosinophils % 0.5 % (0.0-5.0) 03/20/18 18:20 Basophils % 0.4 % (0.0-2.0) 03/20/18 18:20 Sodium 144 mEq/L (136-145) 03/20/18 18:20 Potassium 4.6 mEq/L (3.5-5.1) 03/20/18 18:20 Chloride 107 mEq/L (98-107) 03/20/18 18:20 Carbon Dioxide 29.4 mEq/L (21.0-31.0) 03/20/18 18:20 Anion Gap 12.2 (7.0-16.0) 03/20/18 18:20 BUN 30 mg/dL (7-25) H 12/07/18 18:20 Creatinine 1.2 mg/dL (0.6-1.2) 03/20/18 18:20 Est GFR ( Amer) 57.5 ml/min (>90) 03/20/18 18:20 Est GFR (Non-Af Amer) 47.5 ml/min 03/20/18 18:20 BUN/Creatinine Ratio 25.0 03/20/18 18:20 Glucose 117 mg/dL (70-105) H 03/20/18 18:20 Calcium 9.4 mg/dL (8.6-10.3) 03/20/18 18:20 Phosphorus 4.0 mg/dL (2.5-5.0) 03/20/18 18:20 Magnesium 1.9 mg/dL (1.9-2.7) 03/20/18 18:20 Total Bilirubin 0.5 mg/dL (0.3-1.0) 03/20/18 18:20 AST 23 U/L (13-39) 03/20/18 18:20 ALT 18 U/L (7-52) 03/20/18 18:20 Alkaline Phosphatase 100 U/L (34-104) 03/20/18 18:20 Total Protein 6.3 gm/dL (6.0-8.3) 03/20/18 18:20 Albumin 3.7 gm/dL (3.7-5.3) 03/20/18 18:20 Globulin 2.6 gm/dL 03/20/18 18:20 Albumin/Globulin Ratio 1.4 (1.0-1.8) 03/20/18 18:20 Triglycerides 56 mg/dL (<150) 03/21/18 06:11 Cholesterol 185 mg/dL (<200) 03/21/18 06:11 LDL Cholesterol Direct 112 mg/dL (75-193) 03/21/18 06:11 HDL Cholesterol 58 mg/dL (23-92) 03/21/18 06:11 TSH 0.84 uIU/ml (0.34-5.60) 03/20/18 18:30 - Physical Exam Vitals and I&O: Vital Signs Temp 0 F 03/30/18 06:30 Pulse 96 03/29/18 20:00 Resp 20 03/29/18 20:00 BP 130/77 12/16/18 20:00 Pulse Ox 98 03/29/18 20:00 Intake & Output 03/29/18 03/30/18 03/30/18 18:59 06:59 18:59 Intake Total 1300 Balance 1300 Weight (lbs) 49.895 kg Intake: Oral 1300 Other: # Voids 3 3 # Bowel Movements 1 0 Weight Source Bedscale Active Medications: Current Medications Acetaminophen (Tylenol) 650 mg PO Q4H PRN PRN Reason: Mild Pain / Temp above 100 Stop: 05/19/18 21:49 Last Admin: 03/25/18 11:09 Dose: 650 mg Al Hydrox/Mg Hydrox/Simethicone (Maalox) 30 ml PO Q4HR PRN PRN Reason: GI DISTRESS Stop: 05/19/18 21:49 Atorvastatin Calcium (Lipitor) 20 mg PO HS [facility]; Protocol Stop: 05/20/18 20:59 Last Admin: 03/29/18 20:58 Dose: 20 mg Cholecalciferol (Vitamin D3) 5,000 iu PO DAILY [facility] Stop: 05/20/18 08:59 Last Admin: 03/29/18 09:09 Dose: 5,000 iu Folic Acid (Folate) 1 mg PO HS [facility] Stop: 05/20/18 20:59 Last Admin: 03/29/18 20:58 Dose: 1 mg Haloperidol (Haldol) 1 mg PO BID PRN; Protocol PRN Reason: Agitation Stop: 05/20/18 08:59 Last Admin: 03/27/18 13:40 Dose: 1 mg Levothyroxine Sodium (Synthroid) 0.05 mg PO DAILY@0730 [facility] Stop: 05/20/18 07:29 Last Admin: 03/30/18 06:56 Dose: 0.05 mg Magnesium Hydroxide (Milk Of Magnesia) 30 ml PO HS PRN PRN Reason: Constipation Multivitamins/Vitamin C (Theragran) 1 tab PO DAILY [facility] Stop: 05/20/18 08:59 Last Admin: 03/29/18 09:09 Dose: 1 tab Pantoprazole Sodium (Protonix) 40 mg PO DAILY [facility] Stop: 05/20/18 08:59 Last Admin: 03/29/18 09:09 Dose: 40 mg Quetiapine Fumarate (Seroquel) 25 mg PO TID [facility]; Protocol Stop: 05/28/18 13:59 Last Admin: 03/29/18 20:59 Dose: 25 mg Senna (Senna) 17.2 mg PO HS [facility] Stop: 05/20/18 20:59 Last Admin: 03/29/18 20:58 Dose: 17.2 mg Tramadol HCl (Ultram) 50 mg PO BID [facility] Stop: 05/20/18 08:59 Last Admin: 03/29/18 16:19 Dose: Not Given Valproate Sodium (Depakene) 250 mg PO TID [facility]; Protocol Stop: 05/27/18 13:59 Last Admin: 03/29/18 20:58 Dose: 250 mg Zolpidem Tartrate (Ambien) 5 mg PO HS PRN PRN Reason: Insomnia Stop: 05/19/18 23:34 Last Admin: 03/29/18 20:59 Dose: 5 mg General: Alert, Oriented x3, No acute distress HEENT: Atraumatic, PERRLA, EOMI Neck: Supple Cardiovascular: Regular rate, Normal S1, Normal S2 Lungs: Clear to auscultation Abdomen: Bowel sounds Extremities: no Clubbing, no Cyanosis, no Edema Neurological: Normal gait, Normal speech Assessment/Plan - Problem List Patient Problems: All Active Problems AGGRESSION AND AGITATION; 51/50 STATUS (Acute) - Assessment Assessment: Current Active Problems Problem Status Onset AGGRESSION AND AGITATION; 51/50 STATUS Acute psychosis dyslipidemia thyroid disorder dementia Alzheimer's dementia - Plan Plan: admit to [facility] Nutritional Asmnt/Malnutr-PDOC - Dietary Evaluation Malnutrition Findings (Please click <Entered> for more info): Nutritional Asmnt/Malnutrition Start: 03/25/18 15: 01 Text: Status: Complete Freq: Protocol: Document 03/25/18 15:01 LCHENG (Rec: 03/25/18 15:15 LCHENG [email or web address]) Nutritional Asmnt/Malnutrition Patient General Information Nutritional Screening Moderate Risk Diagnosis psychosis Pertinent Medical Hx/Surgical Hx dyslipidemia, throid disorder, ddmentia, alzheimer's, acute kidney injury Subjective Information Pt seen sitting in laine-chair, crying, very confused, not able to communicate. Per EMR, PO intake 50-75%. OFFICE SERVICES MANAGER stated pt is able to eat well, some time PO intake low d/t mental status or sleepy by medication . Pt needs total assist with meals, eats slowly. Current Diet Order/ Nutrition Support [facility] Pertinent Medications lipitor, vit D3, folate, synthroid, theragran, protonix , seroquel, senna Pertinent Labs 03/20 BUN 30, Cr 1.2, glucose 117, albe 3.7 Nutritional Hx/Data Height 1.63 m Height (Calculated Centimeters) 162.6 Current Weight (lbs) 49.895 kg Weight (Calculated Kilograms) 49.9 Weight (Calculated Grams) 72060.2 [place] Body Weight 120 Body Mass Index (BMI) 18.8 Weight Status Approriate GI Symptoms GI Symptoms None Last BM 03/22 Difficult in: None Skin Integrity/Comment: mere thapa 16 Current %PO Fair (50-74%) Estimated Nutritional Goals BEE in Kcals: Using Current wt Calories/Kcals/Kg 27-32 Kcals Calculated 1373-8872 Protein: Using Current wt Protein g/k-1.2 Protein Calculated 50-60 Fluid: ml 1350-1600ml (1ml/kcal) Nutritional Problem No current Nutrition Prob Problem N/A Intervention/Recommendation Comments 1. Continue with [facility] diet as ordered. Nurses to assist pt with all meals. 2. Monitor PO intake, wt, labs and skin integrity 3. F/U as low risk in 7 days, 04/01, PO check 03/27 Expected Outcomes/Goals Expected Outcomes/Goals 1. PO intake to meet at least 75% of nutritional needs. 2. Wt stability, skin to remain intact, labs to approach WNL.
[2018-03-30] MEDS: Pantoprazole 40 mg EC Tab PO SCH (08:47)
[2018-03-30] MEDS: Multivitamin Tab PO SCH (08:49)
[2018-03-30] MEDS: Atorvastatin Calcium 10 MG TAB PO SCH (20:49)
--- NOTE | 2018-03-31 01:45 | Progress Notes ---
DATE: 03/30/2018 SUBJECTIVE: Staff was spoken to. The patient is interviewed. Mood is noted to be irritable. Affect is constricted. Insight and judgment at this time are noted to be still impaired. Coping skills are poor. The patient has been out of control yesterday and the patient's Seroquel has been increased to 3 times a day, following which, the patient has been too sedated. The patient is not able to contract for safety at this time. The patient has been very drowsy, but the patient is not able to participate in any of the groups. ASSESSMENT: The patient is still confused and demented. PLAN: To decrease the dose on the Seroquel to 25 mg twice a day and follow the patient up. JOB# [id number]
[2018-03-31] MEDS: Levothyroxine 0.05 Mg Tab PO SCH (06:44)
--- NOTE | 2018-03-31 08:12 | General Progress Note ---
Subjective - Review of Systems Service Date: 03/31/18 Subjective: Awake,alert but confused VS T 98.0 P96 R20 BP 130/77 Objective - Results Result Diagrams: 03/20/18 18:20 03/20/18 18:20 Recent Labs: Laboratory Last Values WBC 7.8 Th/cmm (4.8-10.8) 03/20/18 18:20 RBC 3.82 Mil/cmm (3.80-5.20) 03/20/18 18:20 Hgb 11.9 gm/dL (12-16) L 03/20/18 18:20 Hct 34.9 % (41.0-60) L 03/20/18 18:20 MCV 91.4 fl (81-100) 03/20/18 18:20 MCH 31.0 pg (27.0-31.0) 03/20/18 18:20 MCHC Differential 34.0 pg (28.0-36.0) 03/20/18 18:20 RDW 12.0 % (11.5-20.0) 03/20/18 18:20 Plt Count 347 Th/cmm (150-400) 03/20/18 18:20 MPV 7.5 fl 03/20/18 18:20 Neutrophils % 72.7 % (40.0-80.0) 03/20/18 18:20 Lymphocytes % 18.3 % (20.0-50.0) L 03/20/18 18:20 Monocytes % 8.1 % (2.0-10.0) 03/20/18 18:20 Eosinophils % 0.5 % (0.0-5.0) 03/20/18 18:20 Basophils % 0.4 % (0.0-2.0) 03/20/18 18:20 Sodium 144 mEq/L (136-145) 03/20/18 18:20 Potassium 4.6 mEq/L (3.5-5.1) 03/20/18 18:20 Chloride 107 mEq/L (98-107) 03/20/18 18:20 Carbon Dioxide 29.4 mEq/L (21.0-31.0) 03/20/18 18:20 Anion Gap 12.2 (7.0-16.0) 03/20/18 18:20 BUN 30 mg/dL (7-25) H 12/07/18 18:20 Creatinine 1.2 mg/dL (0.6-1.2) 03/20/18 18:20 Est GFR ( Amer) 57.5 ml/min (>90) 03/20/18 18:20 Est GFR (Non-Af Amer) 47.5 ml/min 03/20/18 18:20 BUN/Creatinine Ratio 25.0 03/20/18 18:20 Glucose 117 mg/dL (70-105) H 03/20/18 18:20 Calcium 9.4 mg/dL (8.6-10.3) 03/20/18 18:20 Phosphorus 4.0 mg/dL (2.5-5.0) 03/20/18 18:20 Magnesium 1.9 mg/dL (1.9-2.7) 03/20/18 18:20 Total Bilirubin 0.5 mg/dL (0.3-1.0) 03/20/18 18:20 AST 23 U/L (13-39) 03/20/18 18:20 ALT 18 U/L (7-52) 03/20/18 18:20 Alkaline Phosphatase 100 U/L (34-104) 03/20/18 18:20 Total Protein 6.3 gm/dL (6.0-8.3) 03/20/18 18:20 Albumin 3.7 gm/dL (3.7-5.3) 03/20/18 18:20 Globulin 2.6 gm/dL 03/20/18 18:20 Albumin/Globulin Ratio 1.4 (1.0-1.8) 03/20/18 18:20 Triglycerides 56 mg/dL (<150) 03/21/18 06:11 Cholesterol 185 mg/dL (<200) 03/21/18 06:11 LDL Cholesterol Direct 112 mg/dL (75-193) 03/21/18 06:11 HDL Cholesterol 58 mg/dL (23-92) 03/21/18 06:11 TSH 0.84 uIU/ml (0.34-5.60) 03/20/18 18:30 - Physical Exam Vitals and I&O: Vital Signs Temp 0 F 03/30/18 06:30 Pulse 96 03/29/18 20:00 Resp 20 03/29/18 20:00 BP 130/77 12/16/18 20:00 Pulse Ox 98 03/29/18 20:00 Intake & Output 03/30/18 03/31/18 03/31/18 18:59 06:59 18:59 Intake Total 700 120 Balance 700 120 Intake: Oral 700 120 Other: # Voids 3 2 # Bowel Movements 1 0 Active Medications: Current Medications Acetaminophen (Tylenol) 650 mg PO Q4H PRN PRN Reason: Mild Pain / Temp above 100 Stop: 05/19/18 21:49 Last Admin: 03/25/18 11:09 Dose: 650 mg Al Hydrox/Mg Hydrox/Simethicone (Maalox) 30 ml PO Q4HR PRN PRN Reason: GI DISTRESS Stop: 05/19/18 21:49 Atorvastatin Calcium (Lipitor) 20 mg PO HS [facility]; Protocol Stop: 05/20/18 20:59 Last Admin: 03/30/18 20:49 Dose: 20 mg Cholecalciferol (Vitamin D3) 5,000 iu PO DAILY [facility] Stop: 05/20/18 08:59 Last Admin: 03/30/18 08:47 Dose: 5,000 iu Folic Acid (Folate) 1 mg PO HS [facility] Stop: 05/20/18 20:59 Last Admin: 03/30/18 20:49 Dose: 1 mg Haloperidol (Haldol) 1 mg PO BID PRN; Protocol PRN Reason: Agitation Stop: 05/20/18 08:59 Last Admin: 03/30/18 23:55 Dose: 1 mg Levothyroxine Sodium (Synthroid) 0.05 mg PO DAILY@0730 [facility] Stop: 05/20/18 07:29 Last Admin: 03/31/18 06:44 Dose: 0.05 mg Magnesium Hydroxide (Milk Of Magnesia) 30 ml PO HS PRN PRN Reason: Constipation Multivitamins/Vitamin C (Theragran) 1 tab PO DAILY [facility] Stop: 05/20/18 08:59 Last Admin: 03/30/18 08:49 Dose: 1 tab Pantoprazole Sodium (Protonix) 40 mg PO DAILY [facility] Stop: 05/20/18 08:59 Last Admin: 03/30/18 08:47 Dose: 40 mg Quetiapine Fumarate (Seroquel) 12.5 mg PO BID [facility]; Protocol Stop: 02/16/19 08:59 Senna (Senna) 17.2 mg PO HS [facility] Stop: 05/20/18 20:59 Last Admin: 03/30/18 20:49 Dose: 17.2 mg Tramadol HCl (Ultram) 50 mg PO BID [facility] Stop: 05/20/18 08:59 Last Admin: 03/30/18 17:20 Dose: Not Given Valproate Sodium (Depakene) 250 mg PO TID [facility]; Protocol Stop: 05/27/18 13:59 Last Admin: 03/30/18 20:48 Dose: 250 mg Zolpidem Tartrate (Ambien) 5 mg PO HS PRN PRN Reason: Insomnia Stop: 05/19/18 23:34 Last Admin: 03/29/18 20:59 Dose: 5 mg General: Alert, Oriented x3, No acute distress HEENT: Atraumatic, PERRLA, EOMI Neck: Supple Cardiovascular: Regular rate, Normal S1, Normal S2 Lungs: Clear to auscultation Abdomen: Bowel sounds Extremities: no Clubbing, no Cyanosis, no Edema Neurological: Normal gait, Normal speech Assessment/Plan - Problem List Patient Problems: All Active Problems AGGRESSION AND AGITATION; 51/50 STATUS (Acute) - Assessment Assessment: Current Active Problems Problem Status Onset AGGRESSION AND AGITATION; 51/50 STATUS Acute psychosis dyslipidemia thyroid disorder dementia Alzheimer's dementia - Plan Plan: admit to [facility] Nutritional Asmnt/Malnutr-PDOC - Dietary Evaluation Malnutrition Findings (Please click <Entered> for more info): Nutritional Asmnt/Malnutrition Start: 03/25/18 15: 01 Text: Status: Complete Freq: Protocol: Document 03/25/18 15:01 LCHENG (Rec: 03/25/18 15:15 [email or web address]) Nutritional Asmnt/Malnutrition Patient General Information Nutritional Screening Moderate Risk Diagnosis psychosis Pertinent Medical Hx/Surgical Hx dyslipidemia, throid disorder, ddmentia, alzheimer's, acute kidney injury Subjective Information Pt seen sitting in laine-chair, crying, very confused, not able to communicate. Per EMR, PO intake 50-75%. SENIOR PROGRAM ANALYST stated pt is able to eat well, some time PO intake low d/t mental status or sleepy by medication . Pt needs total assist with meals, eats slowly. Current Diet Order/ Nutrition Support [facility] soft [facility] Pertinent Medications lipitor, vit D3, folate, synthroid, theragran, protonix , seroquel, senna Pertinent Labs 03/20 BUN 30, Cr 1.2, glucose 117, albe 3.7 Nutritional Hx/Data Height 1.63 m Height (Calculated Centimeters) 162.6 Current Weight (lbs) 49.895 kg Weight (Calculated Kilograms) 49.9 Weight (Calculated Grams) 16598.2 [place] Body Weight 120 Body Mass Index (BMI) 18.8 Weight Status Approriate GI Symptoms GI Symptoms None Last BM 03/22 Difficult in: None Skin Integrity/Comment: mere thapa 16 Current %PO Fair (50-74%) Estimated Nutritional Goals BEE in Kcals: Using Current wt Calories/Kcals/Kg 27-32 Kcals Calculated 4196-4331 Protein: Using Current wt Protein g/k-1.2 Protein Calculated 50-60 Fluid: ml 1350-1600ml (1ml/kcal) Nutritional Problem No current Nutrition Prob Problem N/A Intervention/Recommendation Comments 1. Continue with [facility] soft ground diet as ordered. Nurses to assist pt with all meals. 2. Monitor PO intake, wt, labs and skin integrity 3. F/U as low risk in 7 days, 04/01, PO check 03/27 Expected Outcomes/Goals Expected Outcomes/Goals 1. PO intake to meet at least 75% of nutritional needs. 2. Wt stability, skin to remain intact, labs to approach WNL.
[2018-03-31] MEDS: Multivitamin Tab PO SCH (08:31)
[2018-03-31] MEDS: Pantoprazole 40 mg EC Tab PO SCH (08:32)
[2018-03-31] MEDS: Atorvastatin Calcium 10 MG TAB PO SCH (20:56)
--- NOTE | 2018-04-01 01:49 | Progress Notes ---
DATE: 03/31/2018 SUBJECTIVE: Staff was spoken to. The patient is interviewed. Mood is noted to be irritable. Affect is constricted. The patient continues to be very paranoid. Insight and judgment at this time are noted to be still impaired. Impulse control is noted to be limited. No side effects to the medications are noted. The patient has been switched over from Seroquel to Zyprexa and the patient is being closely monitored. The patient's is supposed to get in touch with us to give the information about medications that have helped her in the past. ASSESSMENT: The patient is still psychotic and impulsive. PLAN: To continue the patient with the supportive therapy and followup. JOB# [id number]
[2018-04-01] MEDS: Levothyroxine 0.05 Mg Tab PO SCH (06:54)
--- NOTE | 2018-04-01 08:05 | General Progress Note ---
Subjective - Review of Systems Service Date: 04/01/18 Subjective: Awake,alert but confused VS T 97.8 P93 R20 BP 134/96 Objective - Results Result Diagrams: 03/20/18 18:20 03/20/18 18:20 Recent Labs: Laboratory Last Values WBC 7.8 Th/cmm (4.8-10.8) 03/20/18 18:20 RBC 3.82 Mil/cmm (3.80-5.20) 03/20/18 18:20 Hgb 11.9 gm/dL (12-16) L 03/20/18 18:20 Hct 34.9 % (41.0-60) L 03/20/18 18:20 MCV 91.4 fl (81-100) 03/20/18 18:20 MCH 31.0 pg (27.0-31.0) 03/20/18 18:20 MCHC Differential 34.0 pg (28.0-36.0) 03/20/18 18:20 RDW 12.0 % (11.5-20.0) 03/20/18 18:20 Plt Count 347 Th/cmm (150-400) 03/20/18 18:20 MPV 7.5 fl 03/20/18 18:20 Neutrophils % 72.7 % (40.0-80.0) 03/20/18 18:20 Lymphocytes % 18.3 % (20.0-50.0) L 03/20/18 18:20 Monocytes % 8.1 % (2.0-10.0) 03/20/18 18:20 Eosinophils % 0.5 % (0.0-5.0) 03/20/18 18:20 Basophils % 0.4 % (0.0-2.0) 03/20/18 18:20 Sodium 144 mEq/L (136-145) 03/20/18 18:20 Potassium 4.6 mEq/L (3.5-5.1) 03/20/18 18:20 Chloride 107 mEq/L (98-107) 03/20/18 18:20 Carbon Dioxide 29.4 mEq/L (21.0-31.0) 03/20/18 18:20 Anion Gap 12.2 (7.0-16.0) 03/20/18 18:20 BUN 30 mg/dL (7-25) H 12/07/18 18:20 Creatinine 1.2 mg/dL (0.6-1.2) 03/20/18 18:20 Est GFR ( Amer) 57.5 ml/min (>90) 03/20/18 18:20 Est GFR (Non-Af Amer) 47.5 ml/min 03/20/18 18:20 BUN/Creatinine Ratio 25.0 03/20/18 18:20 Glucose 117 mg/dL (70-105) H 03/20/18 18:20 Calcium 9.4 mg/dL (8.6-10.3) 03/20/18 18:20 Phosphorus 4.0 mg/dL (2.5-5.0) 03/20/18 18:20 Magnesium 1.9 mg/dL (1.9-2.7) 03/20/18 18:20 Total Bilirubin 0.5 mg/dL (0.3-1.0) 03/20/18 18:20 AST 23 U/L (13-39) 03/20/18 18:20 ALT 18 U/L (7-52) 03/20/18 18:20 Alkaline Phosphatase 100 U/L (34-104) 03/20/18 18:20 Total Protein 6.3 gm/dL (6.0-8.3) 03/20/18 18:20 Albumin 3.7 gm/dL (3.7-5.3) 03/20/18 18:20 Globulin 2.6 gm/dL 03/20/18 18:20 Albumin/Globulin Ratio 1.4 (1.0-1.8) 03/20/18 18:20 Triglycerides 56 mg/dL (<150) 03/21/18 06:11 Cholesterol 185 mg/dL (<200) 03/21/18 06:11 LDL Cholesterol Direct 112 mg/dL (75-193) 03/21/18 06:11 HDL Cholesterol 58 mg/dL (23-92) 03/21/18 06:11 TSH 0.84 uIU/ml (0.34-5.60) 03/20/18 18:30 - Physical Exam Vitals and I&O: Vital Signs Temp 0 F 04/01/18 06:28 Pulse 93 03/31/18 20:19 Resp 20 03/31/18 20:19 BP 134/96 12/18/18 20:19 Pulse Ox 97 03/31/18 20:19 Intake & Output 03/31/18 04/01/18 04/01/18 18:59 06:59 18:59 Intake Total 800 240 Balance 800 240 Weight (lbs) 49.895 kg Intake: Oral 800 240 Other: # Voids 4 3 # Bowel Movements 1 0 Weight Source Bedscale Active Medications: Current Medications Acetaminophen (Tylenol) 650 mg PO Q4H PRN PRN Reason: Mild Pain / Temp above 100 Stop: 05/19/18 21:49 Last Admin: 04/01/18 03:34 Dose: 650 mg Al Hydrox/Mg Hydrox/Simethicone (Maalox) 30 ml PO Q4HR PRN PRN Reason: GI DISTRESS Stop: 05/19/18 21:49 Atorvastatin Calcium (Lipitor) 20 mg PO HS [facility]; Protocol Stop: 05/20/18 20:59 Last Admin: 03/31/18 20:56 Dose: 20 mg Cholecalciferol (Vitamin D3) 5,000 iu PO DAILY [facility] Stop: 05/20/18 08:59 Last Admin: 03/31/18 08:33 Dose: 5,000 iu Folic Acid (Folate) 1 mg PO HS [facility] Stop: 05/20/18 20:59 Last Admin: 03/31/18 20:58 Dose: 1 mg Haloperidol (Haldol) 1 mg PO BID PRN; Protocol PRN Reason: Agitation Stop: 05/20/18 08:59 Last Admin: 03/30/18 23:55 Dose: 1 mg Levothyroxine Sodium (Synthroid) 0.05 mg PO DAILY@0730 [facility] Stop: 05/20/18 07:29 Last Admin: 04/01/18 06:54 Dose: 0.05 mg Magnesium Hydroxide (Milk Of Magnesia) 30 ml PO HS PRN PRN Reason: Constipation Multivitamins/Vitamin C (Theragran) 1 tab PO DAILY [facility] Stop: 05/20/18 08:59 Last Admin: 03/31/18 08:31 Dose: 1 tab Olanzapine (Zyprexa) 2.5 mg PO BID [facility]; Protocol Stop: 05/30/18 16:59 Last Admin: 03/31/18 16:54 Dose: 2.5 mg Pantoprazole Sodium (Protonix) 40 mg PO DAILY [facility] Stop: 05/20/18 08:59 Last Admin: 03/31/18 08:32 Dose: 40 mg Senna (Senna) 17.2 mg PO HS [facility] Stop: 05/20/18 20:59 Last Admin: 03/31/18 20:57 Dose: 17.2 mg Tramadol HCl (Ultram) 50 mg PO BID [facility] Stop: 05/20/18 08:59 Last Admin: 03/31/18 16:53 Dose: 50 mg Valproate Sodium (Depakene) 250 mg PO TID [facility]; Protocol Stop: 05/27/18 13:59 Last Admin: 03/31/18 20:58 Dose: 250 mg Zolpidem Tartrate (Ambien) 5 mg PO HS PRN PRN Reason: Insomnia Stop: 05/19/18 23:34 Last Admin: 03/31/18 20:58 Dose: 5 mg General: Alert, Oriented x3, No acute distress HEENT: Atraumatic, PERRLA, EOMI Neck: Supple Cardiovascular: Regular rate, Normal S1, Normal S2 Lungs: Clear to auscultation Abdomen: Bowel sounds Extremities: no Clubbing, no Cyanosis, no Edema Neurological: Normal gait, Normal speech Assessment/Plan - Problem List Patient Problems: All Active Problems AGGRESSION AND AGITATION; 51/50 STATUS (Acute) - Assessment Assessment: Current Active Problems Problem Status Onset AGGRESSION AND AGITATION; 51/50 STATUS Acute psychosis dyslipidemia thyroid disorder dementia Alzheimer's dementia - Plan Plan: continue current treatment Nutritional Asmnt/Malnutr-PDOC - Dietary Evaluation Malnutrition Findings (Please click <Entered> for more info): Nutritional Asmnt/Malnutrition Start: 03/25/18 15: 01 Text: Status: Complete Freq: Protocol: Document 03/25/18 15:01 LCHENG (Rec: 03/25/18 15:15 [email or web address]) Nutritional Asmnt/Malnutrition Patient General Information Nutritional Screening Moderate Risk Diagnosis psychosis Pertinent Medical Hx/Surgical Hx dyslipidemia, throid disorder, ddmentia, alzheimer's, acute kidney injury Subjective Information Pt seen sitting in laine-chair, crying, very confused, not able to communicate. Per EMR, PO intake 50-75%. CAVING GUIDE stated pt is able to eat well, some time PO intake low d/t mental status or sleepy by medication . Pt needs total assist with meals, eats slowly. Current Diet Order/ Nutrition Support [facility] soft ground Pertinent Medications lipitor, vit D3, folate, synthroid, theragran, protonix , seroquel, senna Pertinent Labs 03/20 BUN 30, Cr 1.2, glucose 117, albe 3.7 Nutritional Hx/Data Height 1.63 m Height (Calculated Centimeters) 162.6 Current Weight (lbs) 49.895 kg Weight (Calculated Kilograms) 49.9 Weight (Calculated Grams) 81418.2 [place] Body Weight 120 Body Mass Index (BMI) 18.8 Weight Status Approriate GI Symptoms GI Symptoms None Last BM 03/22 Difficult in: None Skin Integrity/Comment: mere thapa 16 Current %PO Fair (50-74%) Estimated Nutritional Goals BEE in Kcals: Using Current wt Calories/Kcals/Kg 27-32 Kcals Calculated 9261-6967 Protein: Using Current wt Protein g/k-1.2 Protein Calculated 50-60 Fluid: ml 1350-1600ml (1ml/kcal) Nutritional Problem No current Nutrition Prob Problem N/A Intervention/Recommendation Comments 1. Continue with [facility] soft ground diet as ordered. Nurses to assist pt with all meals. 2. Monitor PO intake, wt, labs and skin integrity 3. F/U as low risk in 7 days, 04/01, PO check 03/27 Expected Outcomes/Goals Expected Outcomes/Goals 1. PO intake to meet at least 75% of nutritional needs. 2. Wt stability, skin to remain intact, labs to approach WNL.
[2018-04-01] MEDS: Multivitamin Tab PO SCH (08:55)
[2018-04-01] MEDS: Pantoprazole 40 mg EC Tab PO SCH (08:56)
[2018-04-01] MEDS: Haloperidol Lactate 2 mg/mL Udc PO PRN ×2 (17:51→21:25)
[2018-04-01] MEDS: Atorvastatin Calcium 10 MG TAB PO SCH (21:23)
--- NOTE | 2018-04-02 02:38 | Progress Notes ---
DATE: 04/01/2018 SUBJECTIVE: Staff was spoken to. The patient is interviewed. Mood is noted to be irritable. Affect is constricted. The patient has been banging on the GD chair. The patient is currently on 250 mg 3 times a day of the Depakote and olanzapine is being given at 2.5 mg twice a day and Haldol is given as a p.r.n. The patient appears to be sedated today, but no major side effects are noted for this patient because of the sedation, it has been decided to decrease the dose on the Depakote to twice a day and closely monitor the patient with Zyprexa and a lower dosage of the Depakote. production service manager has been spoken to. They have been trying to look for placement, so far, the places that have been suggested by the pillowcase sewer are not agreeable to the family and they are looking for a different place. JOB# [id number]
[2018-04-02] MEDS: Levothyroxine 0.05 Mg Tab PO SCH (06:54)
--- NOTE | 2018-04-02 07:55 | General Progress Note ---
Subjective - Review of Systems Service Date: 04/02/18 Subjective: Awake,alert but confused VS T 97.6 P84 R18 BP 126/75 Objective - Results Result Diagrams: 03/20/18 18:20 03/20/18 18:20 Recent Labs: Laboratory Last Values WBC 7.8 Th/cmm (4.8-10.8) 03/20/18 18:20 RBC 3.82 Mil/cmm (3.80-5.20) 03/20/18 18:20 Hgb 11.9 gm/dL (12-16) L 03/20/18 18:20 Hct 34.9 % (41.0-60) L 03/20/18 18:20 MCV 91.4 fl (81-100) 03/20/18 18:20 MCH 31.0 pg (27.0-31.0) 03/20/18 18:20 MCHC Differential 34.0 pg (28.0-36.0) 03/20/18 18:20 RDW 12.0 % (11.5-20.0) 03/20/18 18:20 Plt Count 347 Th/cmm (150-400) 03/20/18 18:20 MPV 7.5 fl 03/20/18 18:20 Neutrophils % 72.7 % (40.0-80.0) 03/20/18 18:20 Lymphocytes % 18.3 % (20.0-50.0) L 03/20/18 18:20 Monocytes % 8.1 % (2.0-10.0) 03/20/18 18:20 Eosinophils % 0.5 % (0.0-5.0) 03/20/18 18:20 Basophils % 0.4 % (0.0-2.0) 03/20/18 18:20 Sodium 144 mEq/L (136-145) 03/20/18 18:20 Potassium 4.6 mEq/L (3.5-5.1) 03/20/18 18:20 Chloride 107 mEq/L (98-107) 03/20/18 18:20 Carbon Dioxide 29.4 mEq/L (21.0-31.0) 03/20/18 18:20 Anion Gap 12.2 (7.0-16.0) 03/20/18 18:20 BUN 30 mg/dL (7-25) H 12/07/18 18:20 Creatinine 1.2 mg/dL (0.6-1.2) 03/20/18 18:20 Est GFR ( Amer) 57.5 ml/min (>90) 03/20/18 18:20 Est GFR (Non-Af Amer) 47.5 ml/min 03/20/18 18:20 BUN/Creatinine Ratio 25.0 03/20/18 18:20 Glucose 117 mg/dL (70-105) H 03/20/18 18:20 Calcium 9.4 mg/dL (8.6-10.3) 03/20/18 18:20 Phosphorus 4.0 mg/dL (2.5-5.0) 03/20/18 18:20 Magnesium 1.9 mg/dL (1.9-2.7) 03/20/18 18:20 Total Bilirubin 0.5 mg/dL (0.3-1.0) 03/20/18 18:20 AST 23 U/L (13-39) 03/20/18 18:20 ALT 18 U/L (7-52) 03/20/18 18:20 Alkaline Phosphatase 100 U/L (34-104) 03/20/18 18:20 Total Protein 6.3 gm/dL (6.0-8.3) 03/20/18 18:20 Albumin 3.7 gm/dL (3.7-5.3) 03/20/18 18:20 Globulin 2.6 gm/dL 03/20/18 18:20 Albumin/Globulin Ratio 1.4 (1.0-1.8) 03/20/18 18:20 Triglycerides 56 mg/dL (<150) 03/21/18 06:11 Cholesterol 185 mg/dL (<200) 03/21/18 06:11 LDL Cholesterol Direct 112 mg/dL (75-193) 03/21/18 06:11 HDL Cholesterol 58 mg/dL (23-92) 03/21/18 06:11 TSH 0.84 uIU/ml (0.34-5.60) 03/20/18 18:30 - Physical Exam Vitals and I&O: Vital Signs Temp 97.6 F 04/01/18 20:00 Pulse 84 04/01/18 20:00 Resp 18 04/01/18 20:00 BP 126/75 04/01/18 20:00 Pulse Ox 97 04/01/18 20:00 Intake & Output 04/01/18 04/02/18 04/02/18 18:59 06:59 18:59 Intake Total 960 120 Balance 960 120 Intake: Oral 960 120 Other: # Voids 3 3 # Bowel Movements 1 Active Medications: Current Medications Acetaminophen (Tylenol) 650 mg PO Q4H PRN PRN Reason: Mild Pain / Temp above 100 Stop: 05/19/18 21:49 Last Admin: 04/01/18 03:34 Dose: 650 mg Al Hydrox/Mg Hydrox/Simethicone (Maalox) 30 ml PO Q4HR PRN PRN Reason: GI DISTRESS Stop: 05/19/18 21:49 Atorvastatin Calcium (Lipitor) 20 mg PO HS [facility]; Protocol Stop: 05/20/18 20:59 Last Admin: 04/01/18 21:23 Dose: 20 mg Cholecalciferol (Vitamin D3) 5,000 iu PO DAILY [facility] Stop: 05/20/18 08:59 Last Admin: 04/01/18 08:55 Dose: 5,000 iu Folic Acid (Folate) 1 mg PO HS [facility] Stop: 05/20/18 20:59 Last Admin: 04/01/18 21:23 Dose: 1 mg Haloperidol Lactate (Haldol) 1 mg PO BID PRN PRN Reason: AGITATION Stop: 05/31/18 16:02 Last Admin: 04/01/18 21:25 Dose: 1 mg Levothyroxine Sodium (Synthroid) 0.05 mg PO DAILY@0730 [facility] Stop: 05/20/18 07:29 Last Admin: 04/02/18 06:54 Dose: 0.05 mg Magnesium Hydroxide (Milk Of Magnesia) 30 ml PO HS PRN PRN Reason: Constipation Multivitamins/Vitamin C (Theragran) 1 tab PO DAILY [facility] Stop: 05/20/18 08:59 Last Admin: 04/01/18 08:55 Dose: 1 tab Olanzapine (Zyprexa) 2.5 mg PO BID [facility]; Protocol Stop: 05/30/18 16:59 Last Admin: 04/01/18 16:08 Dose: 2.5 mg Pantoprazole Sodium (Protonix) 40 mg PO DAILY [facility] Stop: 05/20/18 08:59 Last Admin: 04/01/18 08:56 Dose: 40 mg Senna (Senna) 17.2 mg PO HS [facility] Stop: 05/20/18 20:59 Last Admin: 04/01/18 21:20 Dose: 17.2 mg Tramadol HCl (Ultram) 50 mg PO BID [facility] Stop: 05/20/18 08:59 Last Admin: 04/01/18 16:08 Dose: Not Given Valproate Sodium (Depakene) 250 mg PO BID [facility]; Protocol Stop: 06/01/18 08:59 Zolpidem Tartrate (Ambien) 5 mg PO HS PRN PRN Reason: Insomnia Stop: 05/19/18 23:34 Last Admin: 04/01/18 21:23 Dose: 5 mg General: Alert, Oriented x3, No acute distress HEENT: Atraumatic, PERRLA, EOMI Neck: Supple Cardiovascular: Regular rate, Normal S1, Normal S2 Lungs: Clear to auscultation Abdomen: Bowel sounds Extremities: no Clubbing, no Cyanosis, no Edema Neurological: Normal gait, Normal speech Assessment/Plan - Problem List Patient Problems: All Active Problems AGGRESSION AND AGITATION; 51/50 STATUS (Acute) - Assessment Assessment: Current Active Problems Problem Status Onset AGGRESSION AND AGITATION; 51/50 STATUS Acute psychosis dyslipidemia thyroid disorder dementia Alzheimer's dementia - Plan Plan: continue current treatment Nutritional Asmnt/Malnutr-PDOC - Dietary Evaluation Malnutrition Findings (Please click <Entered> for more info): Nutritional Asmnt/Malnutrition Start: 03/25/18 15: 01 Text: Status: Complete Freq: Protocol: Document 03/25/18 15:01 LCHENG (Rec: 03/25/18 15:15 [email or web address] [email or web address]) Nutritional Asmnt/Malnutrition Patient General Information Nutritional Screening Moderate Risk Diagnosis psychosis Pertinent Medical Hx/Surgical Hx dyslipidemia, throid disorder, ddmentia, alzheimer's, acute kidney injury Subjective Information Pt seen sitting in laine-chair, crying, very confused, not able to communicate. Per EMR, PO intake 50-75%. [facility] stated pt is able to eat well, some time PO intake low d/t mental status or sleepy by medication . Pt needs total assist with meals, eats slowly. Current Diet Order/ Nutrition Support [facility] soft ground Pertinent Medications lipitor, vit D3, folate, synthroid, theragran, protonix , seroquel, senna Pertinent Labs 03/20 BUN 30, Cr 1.2, glucose 117, albe 3.7 Nutritional Hx/Data Height 1.63 m Height (Calculated Centimeters) 162.6 Current Weight (lbs) 49.895 kg Weight (Calculated Kilograms) 49.9 Weight (Calculated Grams) 19603.2 [place] Body Weight 120 Body Mass Index (BMI) 18.8 Weight Status Approriate GI Symptoms GI Symptoms None Last BM 03/22 Difficult in: None Skin Integrity/Comment: elier mere 16 Current %PO Fair (50-74%) Estimated Nutritional Goals BEE in Kcals: Using Current wt Calories/Kcals/Kg 27-32 Kcals Calculated 4819-8334 Protein: Using Current wt Protein g/k-1.2 Protein Calculated 50-60 Fluid: ml 1350-1600ml (1ml/kcal) Nutritional Problem No current Nutrition Prob Problem N/A Intervention/Recommendation Comments 1. Continue with [facility] soft ground diet as ordered. Nurses to assist pt with all meals. 2. Monitor PO intake, wt, labs and skin integrity 3. F/U as low risk in 7 days, 04/01, PO check 03/27 Expected Outcomes/Goals Expected Outcomes/Goals 1. PO intake to meet at least 75% of nutritional needs. 2. Wt stability, skin to remain intact, labs to approach WNL.
[2018-04-02] MEDS: Multivitamin Tab PO SCH (09:52)
[2018-04-02] MEDS: Pantoprazole 40 mg EC Tab PO SCH (09:52)
[2018-04-02] MEDS: Atorvastatin Calcium 10 MG TAB PO SCH (21:26)
[2018-04-03] MEDS: Levothyroxine 0.05 Mg Tab PO SCH (07:05)
--- NOTE | 2018-04-03 08:00 | General Progress Note ---
Subjective - Review of Systems Service Date: 04/03/18 Subjective: Awake,alert but confused VS T 98.1 P90 R18 BP 138/71 Objective - Results Result Diagrams: 03/20/18 18:20 03/20/18 18:20 Recent Labs: Laboratory Last Values WBC 7.8 Th/cmm (4.8-10.8) 03/20/18 18:20 RBC 3.82 Mil/cmm (3.80-5.20) 03/20/18 18:20 Hgb 11.9 gm/dL (12-16) L 03/20/18 18:20 Hct 34.9 % (41.0-60) L 03/20/18 18:20 MCV 91.4 fl (81-100) 03/20/18 18:20 MCH 31.0 pg (27.0-31.0) 03/20/18 18:20 MCHC Differential 34.0 pg (28.0-36.0) 03/20/18 18:20 RDW 12.0 % (11.5-20.0) 03/20/18 18:20 Plt Count 347 Th/cmm (150-400) 03/20/18 18:20 MPV 7.5 fl 03/20/18 18:20 Neutrophils % 72.7 % (40.0-80.0) 03/20/18 18:20 Lymphocytes % 18.3 % (20.0-50.0) L 03/20/18 18:20 Monocytes % 8.1 % (2.0-10.0) 03/20/18 18:20 Eosinophils % 0.5 % (0.0-5.0) 03/20/18 18:20 Basophils % 0.4 % (0.0-2.0) 03/20/18 18:20 Sodium 144 mEq/L (136-145) 03/20/18 18:20 Potassium 4.6 mEq/L (3.5-5.1) 03/20/18 18:20 Chloride 107 mEq/L (98-107) 03/20/18 18:20 Carbon Dioxide 29.4 mEq/L (21.0-31.0) 03/20/18 18:20 Anion Gap 12.2 (7.0-16.0) 03/20/18 18:20 BUN 30 mg/dL (7-25) H 12/07/18 18:20 Creatinine 1.2 mg/dL (0.6-1.2) 03/20/18 18:20 Est GFR ( Amer) 57.5 ml/min (>90) 03/20/18 18:20 Est GFR (Non-Af Amer) 47.5 ml/min 03/20/18 18:20 BUN/Creatinine Ratio 25.0 03/20/18 18:20 Glucose 117 mg/dL (70-105) H 03/20/18 18:20 Calcium 9.4 mg/dL (8.6-10.3) 03/20/18 18:20 Phosphorus 4.0 mg/dL (2.5-5.0) 03/20/18 18:20 Magnesium 1.9 mg/dL (1.9-2.7) 03/20/18 18:20 Total Bilirubin 0.5 mg/dL (0.3-1.0) 03/20/18 18:20 AST 23 U/L (13-39) 03/20/18 18:20 ALT 18 U/L (7-52) 03/20/18 18:20 Alkaline Phosphatase 100 U/L (34-104) 03/20/18 18:20 Total Protein 6.3 gm/dL (6.0-8.3) 03/20/18 18:20 Albumin 3.7 gm/dL (3.7-5.3) 03/20/18 18:20 Globulin 2.6 gm/dL 03/20/18 18:20 Albumin/Globulin Ratio 1.4 (1.0-1.8) 03/20/18 18:20 Triglycerides 56 mg/dL (<150) 03/21/18 06:11 Cholesterol 185 mg/dL (<200) 03/21/18 06:11 LDL Cholesterol Direct 112 mg/dL (75-193) 03/21/18 06:11 HDL Cholesterol 58 mg/dL (23-92) 03/21/18 06:11 TSH 0.84 uIU/ml (0.34-5.60) 03/20/18 18:30 - Physical Exam Vitals and I&O: Vital Signs Temp 98.1 F 04/02/18 20:00 Pulse 90 04/02/18 20:00 Resp 18 04/02/18 20:00 BP 138/71 04/02/18 20:00 Pulse Ox 97 04/02/18 20:00 Intake & Output 04/02/18 04/03/18 04/03/18 18:59 06:59 18:59 Intake Total 120 Balance 120 Intake: Oral 120 Other: # Voids 3 Active Medications: Current Medications Acetaminophen (Tylenol) 650 mg PO Q4H PRN PRN Reason: Mild Pain / Temp above 100 Stop: 05/19/18 21:49 Last Admin: 04/01/18 03:34 Dose: 650 mg Al Hydrox/Mg Hydrox/Simethicone (Maalox) 30 ml PO Q4HR PRN PRN Reason: GI DISTRESS Stop: 05/19/18 21:49 Atorvastatin Calcium (Lipitor) 20 mg PO HS [facility]; Protocol Stop: 05/20/18 20:59 Last Admin: 04/02/18 21:26 Dose: 20 mg Cholecalciferol (Vitamin D3) 5,000 iu PO DAILY [facility] Stop: 05/20/18 08:59 Last Admin: 04/02/18 09:52 Dose: 5,000 iu Folic Acid (Folate) 1 mg PO HS [facility] Stop: 05/20/18 20:59 Last Admin: 04/02/18 21:27 Dose: 1 mg Haloperidol Lactate (Haldol) 1 mg PO BID PRN PRN Reason: AGITATION Stop: 05/31/18 16:02 Last Admin: 04/01/18 21:25 Dose: 1 mg Levothyroxine Sodium (Synthroid) 0.05 mg PO DAILY@0730 [facility] Stop: 05/20/18 07:29 Last Admin: 04/03/18 07:05 Dose: 0.05 mg Magnesium Hydroxide (Milk Of Magnesia) 30 ml PO HS PRN PRN Reason: Constipation Multivitamins/Vitamin C (Theragran) 1 tab PO DAILY [facility] Stop: 05/20/18 08:59 Last Admin: 04/02/18 09:52 Dose: 1 tab Olanzapine (Zyprexa) 2.5 mg PO BID [facility]; Protocol Stop: 05/30/18 16:59 Last Admin: 04/02/18 17:02 Dose: 2.5 mg Pantoprazole Sodium (Protonix) 40 mg PO DAILY [facility] Stop: 05/20/18 08:59 Last Admin: 04/02/18 09:52 Dose: 40 mg Senna (Senna) 17.2 mg PO HS [facility] Stop: 05/20/18 20:59 Last Admin: 04/02/18 21:27 Dose: 17.2 mg Tramadol HCl (Ultram) 50 mg PO BID [facility] Stop: 05/20/18 08:59 Last Admin: 04/02/18 17:03 Dose: Not Given Valproate Sodium (Depakene) 250 mg PO BID [facility]; Protocol Stop: 06/01/18 08:59 Last Admin: 04/02/18 17:01 Dose: 250 mg Zolpidem Tartrate (Ambien) 5 mg PO HS PRN PRN Reason: Insomnia Stop: 05/19/18 23:34 Last Admin: 04/02/18 21:28 Dose: 5 mg General: Alert, Oriented x3, No acute distress HEENT: Atraumatic, PERRLA, EOMI Neck: Supple Cardiovascular: Regular rate, Normal S1, Normal S2 Lungs: Clear to auscultation Abdomen: Bowel sounds Extremities: no Clubbing, no Cyanosis, no Edema Neurological: Normal gait, Normal speech Assessment/Plan - Problem List Patient Problems: All Active Problems AGGRESSION AND AGITATION; 51/50 STATUS (Acute) - Assessment Assessment: Current Active Problems Problem Status Onset AGGRESSION AND AGITATION; 51/50 STATUS Acute psychosis dyslipidemia thyroid disorder dementia Alzheimer's dementia - Plan Plan: continue current treatment Nutritional Asmnt/Malnutr-PDOC - Dietary Evaluation Malnutrition Findings (Please click <Entered> for more info): Nutritional Asmnt/Malnutrition Start: 03/25/18 15: 01 Text: Status: Complete Freq: Protocol: Document 03/25/18 15:01 LCHENG (Rec: 03/25/18 15:15 [email or web address]) Nutritional Asmnt/Malnutrition Patient General Information Nutritional Screening Moderate Risk Diagnosis psychosis Pertinent Medical Hx/Surgical Hx dyslipidemia, throid disorder, ddmentia, alzheimer's, acute kidney injury Subjective Information Pt seen sitting in laine-chair, crying, very confused, not able to communicate. Per EMR, PO intake 50-75%. 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 Pt needs total assist with meals, eats slowly. Current Diet Order/ Nutrition Support [facility] Pertinent Medications lipitor, vit D3, folate, synthroid, theragran, protonix , seroquel, senna Pertinent Labs 03/20 BUN 30, Cr 1.2, glucose 117, albe 3.7 Nutritional Hx/Data Height 1.63 m Height (Calculated Centimeters) 162.6 Current Weight (lbs) 49.895 kg Weight (Calculated Kilograms) 49.9 Weight (Calculated Grams) 23657.2 [place] Body Weight 120 Body Mass Index (BMI) 18.8 Weight Status Approriate GI Symptoms GI Symptoms None Last BM 03/22 Difficult in: None Skin Integrity/Comment: mere thapa 16 Current %PO Fair (50-74%) Estimated Nutritional Goals BEE in Kcals: Using Current wt Calories/Kcals/Kg 27-32 Kcals Calculated 4995-4602 Protein: Using Current wt Protein g/k-1.2 Protein Calculated 50-60 Fluid: ml 1350-1600ml (1ml/kcal) Nutritional Problem No current Nutrition Prob Problem N/A Intervention/Recommendation Comments 1. Continue with [facility] diet as ordered. Nurses to assist pt with all meals. 2. Monitor PO intake, wt, labs and skin integrity 3. F/U as low risk in 7 days, 04/01, PO check 03/27 Expected Outcomes/Goals Expected Outcomes/Goals 1. PO intake to meet at least 75% of nutritional needs. 2. Wt stability, skin to remain intact, labs to approach WNL.
[2018-04-03] MEDS: Pantoprazole 40 mg EC Tab PO SCH (08:14)
[2018-04-03] MEDS: Multivitamin Tab PO SCH (08:14)
--- NOTE | 2018-04-03 09:56 | Progress Notes ---
DATE: 04/02/2018 SUBJECTIVE: Staff was spoken to. The patient is interviewed. Mood is noted to be irritable. Affect is constricted. The patient has been agitated and has been banging on the GD chair. No side effects to the medications are noted. The patient is currently on valproic acid and olanzapine. The patient was on the Seroquel before, but the patient has not been getting any better and hence the patient has been placed on the olanzapine that is being given at 2.5 mg twice a day. The patient is being closely monitored at this time. ASSESSMENT: The patient is still psychotic and impulsive. PLAN: To continue the patient with the current medications and followup. JOB# [id number]
[2018-04-03] MEDS: Atorvastatin Calcium 10 MG TAB PO SCH (21:40)
--- NOTE | 2018-04-03 23:47 | Progress Notes ---
DATE: 04/03/2018 SUBJECTIVE: Staff was spoken to. The patient is interviewed. Mood is noted to be depressed. Affect is constricted. The patient is isolative and withdrawn. The patient is sleeping most of the time. The patient has not been able to participate in any of the activities. Coping skills at this time are noted to be very poor. Sleep and appetite also noted to be very poor. The patient has been getting easily irritable when woken up. Otherwise, the patient is sleeping most of the time. ASSESSMENT: The patient is still impulsive. PLAN: To change Zyprexa to only 2.5 mg at bedtime and discontinue the 2.5 mg twice a day in view of the patient's sleepiness. Continue the patient with the above changes in the medications and encouraged the patient to verbalize the concerns rather than to act out. JOB# [id number]
--- NOTE | 2018-04-04 05:04 | General Progress Note ---
Subjective - Review of Systems Service Date: 04/04/18 Subjective: Awake,alert but confused VS T 97.9 P97 R20 BP 111/73 Objective - Results Result Diagrams: 03/20/18 18:20 03/20/18 18:20 Recent Labs: Laboratory Last Values WBC 7.8 Th/cmm (4.8-10.8) 03/20/18 18:20 RBC 3.82 Mil/cmm (3.80-5.20) 03/20/18 18:20 Hgb 11.9 gm/dL (12-16) L 03/20/18 18:20 Hct 34.9 % (41.0-60) L 03/20/18 18:20 MCV 91.4 fl (81-100) 03/20/18 18:20 MCH 31.0 pg (27.0-31.0) 03/20/18 18:20 MCHC Differential 34.0 pg (28.0-36.0) 03/20/18 18:20 RDW 12.0 % (11.5-20.0) 03/20/18 18:20 Plt Count 347 Th/cmm (150-400) 03/20/18 18:20 MPV 7.5 fl 03/20/18 18:20 Neutrophils % 72.7 % (40.0-80.0) 03/20/18 18:20 Lymphocytes % 18.3 % (20.0-50.0) L 03/20/18 18:20 Monocytes % 8.1 % (2.0-10.0) 03/20/18 18:20 Eosinophils % 0.5 % (0.0-5.0) 03/20/18 18:20 Basophils % 0.4 % (0.0-2.0) 03/20/18 18:20 Sodium 144 mEq/L (136-145) 03/20/18 18:20 Potassium 4.6 mEq/L (3.5-5.1) 03/20/18 18:20 Chloride 107 mEq/L (98-107) 03/20/18 18:20 Carbon Dioxide 29.4 mEq/L (21.0-31.0) 03/20/18 18:20 Anion Gap 12.2 (7.0-16.0) 03/20/18 18:20 BUN 30 mg/dL (7-25) H 12/07/18 18:20 Creatinine 1.2 mg/dL (0.6-1.2) 03/20/18 18:20 Est GFR ( Amer) 57.5 ml/min (>90) 03/20/18 18:20 Est GFR (Non-Af Amer) 47.5 ml/min 03/20/18 18:20 BUN/Creatinine Ratio 25.0 03/20/18 18:20 Glucose 117 mg/dL (70-105) H 03/20/18 18:20 Calcium 9.4 mg/dL (8.6-10.3) 03/20/18 18:20 Phosphorus 4.0 mg/dL (2.5-5.0) 03/20/18 18:20 Magnesium 1.9 mg/dL (1.9-2.7) 03/20/18 18:20 Total Bilirubin 0.5 mg/dL (0.3-1.0) 03/20/18 18:20 AST 23 U/L (13-39) 03/20/18 18:20 ALT 18 U/L (7-52) 03/20/18 18:20 Alkaline Phosphatase 100 U/L (34-104) 03/20/18 18:20 Total Protein 6.3 gm/dL (6.0-8.3) 03/20/18 18:20 Albumin 3.7 gm/dL (3.7-5.3) 03/20/18 18:20 Globulin 2.6 gm/dL 03/20/18 18:20 Albumin/Globulin Ratio 1.4 (1.0-1.8) 03/20/18 18:20 Triglycerides 56 mg/dL (<150) 03/21/18 06:11 Cholesterol 185 mg/dL (<200) 03/21/18 06:11 LDL Cholesterol Direct 112 mg/dL (75-193) 03/21/18 06:11 HDL Cholesterol 58 mg/dL (23-92) 03/21/18 06:11 TSH 0.84 uIU/ml (0.34-5.60) 03/20/18 18:30 - Physical Exam Vitals and I&O: Vital Signs Temp 97.9 F 04/03/18 20:17 Pulse 97 04/03/18 20:17 Resp 20 04/03/18 20:17 BP 111/73 04/03/18 20:17 Pulse Ox 96 04/03/18 20:17 Intake & Output 04/03/18 04/03/18 04/04/18 06:59 18:59 06:59 Intake Total 120 700 240 Balance 120 700 240 Intake: Oral 120 700 240 Other: # Voids 3 3 1 # Bowel Movements 1 1 Active Medications: Current Medications Acetaminophen (Tylenol) 650 mg PO Q4H PRN PRN Reason: Mild Pain / Temp above 100 Stop: 05/19/18 21:49 Last Admin: 04/01/18 03:34 Dose: 650 mg Al Hydrox/Mg Hydrox/Simethicone (Maalox) 30 ml PO Q4HR PRN PRN Reason: GI DISTRESS Stop: 05/19/18 21:49 Atorvastatin Calcium (Lipitor) 20 mg PO HS [facility]; Protocol Stop: 05/20/18 20:59 Last Admin: 04/03/18 21:40 Dose: 20 mg Cholecalciferol (Vitamin D3) 5,000 iu PO DAILY [facility] Stop: 05/20/18 08:59 Last Admin: 04/03/18 08:14 Dose: 5,000 iu Folic Acid (Folate) 1 mg PO HS [facility] Stop: 05/20/18 20:59 Last Admin: 04/03/18 21:40 Dose: 1 mg Haloperidol Lactate (Haldol) 1 mg PO BID PRN PRN Reason: AGITATION Stop: 05/31/18 16:02 Last Admin: 04/01/18 21:25 Dose: 1 mg Levothyroxine Sodium (Synthroid) 0.05 mg PO DAILY@0730 [facility] Stop: 05/20/18 07:29 Last Admin: 04/03/18 07:05 Dose: 0.05 mg Magnesium Hydroxide (Milk Of Magnesia) 30 ml PO HS PRN PRN Reason: Constipation Multivitamins/Vitamin C (Theragran) 1 tab PO DAILY [facility] Stop: 05/20/18 08:59 Last Admin: 04/03/18 08:14 Dose: 1 tab Olanzapine (Zyprexa) 2.5 mg PO HS [facility]; Protocol Stop: 06/02/18 20:59 Last Admin: 04/03/18 21:40 Dose: 2.5 mg Pantoprazole Sodium (Protonix) 40 mg PO DAILY [facility] Stop: 05/20/18 08:59 Last Admin: 04/03/18 08:14 Dose: 40 mg Senna (Senna) 17.2 mg PO HS [facility] Stop: 05/20/18 20:59 Last Admin: 04/03/18 21:40 Dose: 17.2 mg Tramadol HCl (Ultram) 50 mg PO BID [facility] Stop: 05/20/18 08:59 Last Admin: 04/03/18 16:16 Dose: 50 mg Valproate Sodium (Depakene) 250 mg PO BID [facility]; Protocol Stop: 06/01/18 08:59 Last Admin: 04/03/18 16:16 Dose: 250 mg Zolpidem Tartrate (Ambien) 5 mg PO HS PRN PRN Reason: Insomnia Stop: 05/19/18 23:34 Last Admin: 04/04/18 01:58 Dose: 5 mg General: Alert, Oriented x3, No acute distress HEENT: Atraumatic, PERRLA, EOMI Neck: Supple Cardiovascular: Regular rate, Normal S1, Normal S2 Lungs: Clear to auscultation Abdomen: Bowel sounds Extremities: no Clubbing, no Cyanosis, no Edema Neurological: Normal gait, Normal speech Assessment/Plan - Problem List Patient Problems: All Active Problems AGGRESSION AND AGITATION; 51/50 STATUS (Acute) - Assessment Assessment: Current Active Problems Problem Status Onset AGGRESSION AND AGITATION; 51/50 STATUS Acute psychosis dyslipidemia thyroid disorder dementia Alzheimer's dementia - Plan Plan: continue current treatment Nutritional Asmnt/Malnutr-PDOC - Dietary Evaluation Malnutrition Findings (Please click <Entered> for more info): Nutritional Asmnt/Malnutrition Start: 03/25/18 15: 01 Text: Status: Complete Freq: Protocol: Document 03/25/18 15:01 LCHENG (Rec: 03/25/18 15:15 [email or web address] [email or web address]) Nutritional Asmnt/Malnutrition Patient General Information Nutritional Screening Moderate Risk Diagnosis psychosis Pertinent Medical Hx/Surgical Hx dyslipidemia, throid disorder, ddmentia, alzheimer's, acute kidney injury Subjective Information Pt seen sitting in laine-chair, crying, very confused, not able to communicate. Per EMR, PO intake 50-75%. 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 Pt needs total assist with meals, eats slowly. Current Diet Order/ Nutrition Support [facility] Pertinent Medications lipitor, vit D3, folate, synthroid, theragran, protonix , seroquel, senna Pertinent Labs 03/20 BUN 30, Cr 1.2, glucose 117, albe 3.7 Nutritional Hx/Data Height 1.63 m Height (Calculated Centimeters) 162.6 Current Weight (lbs) 49.895 kg Weight (Calculated Kilograms) 49.9 Weight (Calculated Grams) 26239.2 [place] Body Weight 120 Body Mass Index (BMI) 18.8 Weight Status Approriate GI Symptoms GI Symptoms None Last BM 03/22 Difficult in: None Skin Integrity/Comment: elier mere 16 Current %PO Fair (50-74%) Estimated Nutritional Goals BEE in Kcals: Using Current wt Calories/Kcals/Kg 27-32 Kcals Calculated 3740-3593 Protein: Using Current wt Protein g/k-1.2 Protein Calculated 50-60 Fluid: ml 1350-1600ml (1ml/kcal) Nutritional Problem No current Nutrition Prob Problem N/A Intervention/Recommendation Comments 1. Continue with [facility] soft [facility] diet as ordered. Nurses to assist pt with all meals. 2. Monitor PO intake, wt, labs and skin integrity 3. F/U as low risk in 7 days, 04/01, PO check 03/27 Expected Outcomes/Goals Expected Outcomes/Goals 1. PO intake to meet at least 75% of nutritional needs. 2. Wt stability, skin to remain intact, labs to approach WNL.
[2018-04-04] MEDS: Levothyroxine 0.05 Mg Tab PO SCH (06:48)
[2018-04-04] MEDS: Multivitamin Tab PO SCH (09:41)
[2018-04-04] MEDS: Pantoprazole 40 mg EC Tab PO SCH (09:41)
[2018-04-04] MEDS: Atorvastatin Calcium 10 MG TAB PO SCH (22:00)
--- NOTE | 2018-04-04 22:53 | Progress Notes ---
DATE: 04/04/2018 PSYCHIATRIC PROGRESS NOTE SUBJECTIVE: Staff was spoken to. The patient is interviewed. Mood is noted to be less irritable. Affect is appropriate. The patient, however, has been noted to be very paranoid. Coping skills are noted to be extremely poor. Insight and judgment also noted to be very much impaired. No side effects to medications are noted. ASSESSMENT: The patient is still confused, psychotic, and impulsive. PLAN: To continue the patient with the current medications. I encouraged the patient to verbalize the concerns rather than to act out. JOB# [id number]
[2018-04-05] MEDS: Levothyroxine 0.05 Mg Tab PO SCH (08:00)
[2018-04-05] MEDS: Multivitamin Tab PO SCH (08:58)
[2018-04-05] MEDS: Pantoprazole 40 mg EC Tab PO SCH (08:58)
[2018-04-05] MEDS: Haloperidol Lactate 2 mg/mL Udc PO PRN (15:50)
[2018-04-05] MEDS: Atorvastatin Calcium 10 MG TAB PO SCH (20:02)
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
[2018-04-06] MEDS: Levothyroxine 0.05 Mg Tab PO SCH (06:37)
--- NOTE | 2018-04-06 07:21 | General Progress Note ---
Subjective - Review of Systems Service Date: 04/06/18 Subjective: Awake,alert but confused VS T 98.0 P72 R20 BP 93/62 Objective - Results Result Diagrams: 03/20/18 18:20 03/20/18 18:20 Recent Labs: Laboratory Last Values WBC 7.8 Th/cmm (4.8-10.8) 03/20/18 18:20 RBC 3.82 Mil/cmm (3.80-5.20) 03/20/18 18:20 Hgb 11.9 gm/dL (12-16) L 03/20/18 18:20 Hct 34.9 % (41.0-60) L 03/20/18 18:20 MCV 91.4 fl (81-100) 03/20/18 18:20 MCH 31.0 pg (27.0-31.0) 03/20/18 18:20 MCHC Differential 34.0 pg (28.0-36.0) 03/20/18 18:20 RDW 12.0 % (11.5-20.0) 03/20/18 18:20 Plt Count 347 Th/cmm (150-400) 03/20/18 18:20 MPV 7.5 fl 03/20/18 18:20 Neutrophils % 72.7 % (40.0-80.0) 03/20/18 18:20 Lymphocytes % 18.3 % (20.0-50.0) L 03/20/18 18:20 Monocytes % 8.1 % (2.0-10.0) 03/20/18 18:20 Eosinophils % 0.5 % (0.0-5.0) 03/20/18 18:20 Basophils % 0.4 % (0.0-2.0) 03/20/18 18:20 Sodium 144 mEq/L (136-145) 03/20/18 18:20 Potassium 4.6 mEq/L (3.5-5.1) 03/20/18 18:20 Chloride 107 mEq/L (98-107) 03/20/18 18:20 Carbon Dioxide 29.4 mEq/L (21.0-31.0) 03/20/18 18:20 Anion Gap 12.2 (7.0-16.0) 03/20/18 18:20 BUN 30 mg/dL (7-25) H 12/07/18 18:20 Creatinine 1.2 mg/dL (0.6-1.2) 03/20/18 18:20 Est GFR ( Amer) 57.5 ml/min (>90) 03/20/18 18:20 Est GFR (Non-Af Amer) 47.5 ml/min 03/20/18 18:20 BUN/Creatinine Ratio 25.0 03/20/18 18:20 Glucose 117 mg/dL (70-105) H 03/20/18 18:20 Calcium 9.4 mg/dL (8.6-10.3) 03/20/18 18:20 Phosphorus 4.0 mg/dL (2.5-5.0) 03/20/18 18:20 Magnesium 1.9 mg/dL (1.9-2.7) 03/20/18 18:20 Total Bilirubin 0.5 mg/dL (0.3-1.0) 03/20/18 18:20 AST 23 U/L (13-39) 03/20/18 18:20 ALT 18 U/L (7-52) 03/20/18 18:20 Alkaline Phosphatase 100 U/L (34-104) 03/20/18 18:20 Total Protein 6.3 gm/dL (6.0-8.3) 03/20/18 18:20 Albumin 3.7 gm/dL (3.7-5.3) 03/20/18 18:20 Globulin 2.6 gm/dL 03/20/18 18:20 Albumin/Globulin Ratio 1.4 (1.0-1.8) 03/20/18 18:20 Triglycerides 56 mg/dL (<150) 03/21/18 06:11 Cholesterol 185 mg/dL (<200) 03/21/18 06:11 LDL Cholesterol Direct 112 mg/dL (75-193) 03/21/18 06:11 HDL Cholesterol 58 mg/dL (23-92) 03/21/18 06:11 TSH 0.84 uIU/ml (0.34-5.60) 03/20/18 18:30 - Physical Exam Vitals and I&O: Vital Signs Temp 0 F 04/06/18 06:31 Pulse 99 04/05/18 20:21 Resp 20 04/05/18 20:21 BP 93/62 12/23/18 20:21 Pulse Ox 95 04/05/18 20:21 Intake & Output 04/05/18 04/06/18 04/06/18 18:59 06:59 18:59 Intake Total 950 240 Balance 950 240 Weight (lbs) 49.895 kg Intake: Oral 950 240 Other: # Voids 4 3 # Bowel Movements 1 0 Weight Source Bedscale Active Medications: Current Medications Acetaminophen (Tylenol) 650 mg PO Q4H PRN PRN Reason: Mild Pain / Temp above 100 Stop: 05/19/18 21:49 Last Admin: 04/01/18 03:34 Dose: 650 mg Al Hydrox/Mg Hydrox/Simethicone (Maalox) 30 ml PO Q4HR PRN PRN Reason: GI DISTRESS Stop: 05/19/18 21:49 Atorvastatin Calcium (Lipitor) 20 mg PO HS [facility]; Protocol Stop: 05/20/18 20:59 Last Admin: 04/05/18 20:02 Dose: 20 mg Cholecalciferol (Vitamin D3) 5,000 iu PO DAILY [facility] Stop: 05/20/18 08:59 Last Admin: 04/05/18 08:58 Dose: 5,000 iu Folic Acid (Folate) 1 mg PO HS [facility] Stop: 05/20/18 20:59 Last Admin: 04/05/18 20:02 Dose: 1 mg Haloperidol Lactate (Haldol) 1 mg PO BID PRN PRN Reason: AGITATION Stop: 05/31/18 16:02 Last Admin: 04/05/18 15:50 Dose: 1 mg Levothyroxine Sodium (Synthroid) 0.05 mg PO DAILY@0730 [facility] Stop: 05/20/18 07:29 Last Admin: 04/06/18 06:37 Dose: 0.05 mg Magnesium Hydroxide (Milk Of Magnesia) 30 ml PO HS PRN PRN Reason: Constipation Multivitamins/Vitamin C (Theragran) 1 tab PO DAILY [facility] Stop: 05/20/18 08:59 Last Admin: 04/05/18 08:58 Dose: 1 tab Olanzapine (Zyprexa) 2.5 mg PO HS [facility]; Protocol Stop: 06/02/18 20:59 Last Admin: 04/05/18 20:02 Dose: 2.5 mg Pantoprazole Sodium (Protonix) 40 mg PO DAILY [facility] Stop: 05/20/18 08:59 Last Admin: 04/05/18 08:58 Dose: 40 mg Senna (Senna) 17.2 mg PO HS [facility] Stop: 05/20/18 20:59 Last Admin: 04/05/18 20:02 Dose: 17.2 mg Tramadol HCl (Ultram) 50 mg PO BID [facility] Stop: 05/20/18 08:59 Last Admin: 04/05/18 16:57 Dose: 50 mg Valproate Sodium (Depakene) 250 mg PO BID [facility]; Protocol Stop: 06/01/18 08:59 Last Admin: 04/05/18 16:57 Dose: 250 mg Zolpidem Tartrate (Ambien) 5 mg PO HS PRN PRN Reason: Insomnia Stop: 05/19/18 23:34 Last Admin: 04/04/18 01:58 Dose: 5 mg General: Alert, Oriented x3, No acute distress HEENT: Atraumatic, PERRLA, EOMI Neck: Supple Cardiovascular: Regular rate, Normal S1, Normal S2 Lungs: Clear to auscultation Abdomen: Bowel sounds Extremities: no Clubbing, no Cyanosis, no Edema Neurological: Normal gait, Normal speech Assessment/Plan - Problem List Patient Problems: All Active Problems AGGRESSION AND AGITATION; 51/50 STATUS (Acute) - Assessment Assessment: Current Active Problems Problem Status Onset AGGRESSION AND AGITATION; 51/50 STATUS Acute psychosis dyslipidemia thyroid disorder dementia Alzheimer's dementia - Plan Plan: continue current treatment Nutritional Asmnt/Malnutr-PDOC - Dietary Evaluation Malnutrition Findings (Please click <Entered> for more info): Nutritional Asmnt/Malnutrition Start: 03/25/18 15: 01 Text: Status: Complete Freq: Protocol: Document 03/25/18 15:01 LCHENG (Rec: 03/25/18 15:15 [email or web address]) Nutritional Asmnt/Malnutrition Patient General Information Nutritional Screening Moderate Risk Diagnosis psychosis Pertinent Medical Hx/Surgical Hx dyslipidemia, throid disorder, ddmentia, alzheimer's, acute kidney injury Subjective Information Pt seen sitting in laine-chair, crying, very confused, not able to communicate. Per EMR, PO intake 50-75%. SLEEPING CAR CONDUCTOR stated pt is able to eat well, some time PO intake low d/t mental status or sleepy by medication . Pt needs total assist with meals, eats slowly. Current Diet Order/ Nutrition Support [facility] Pertinent Medications lipitor, vit D3, folate, synthroid, theragran, protonix , seroquel, senna Pertinent Labs 03/20 BUN 30, Cr 1.2, glucose 117, albe 3.7 Nutritional Hx/Data Height 1.63 m Height (Calculated Centimeters) 162.6 Current Weight (lbs) 49.895 kg Weight (Calculated Kilograms) 49.9 Weight (Calculated Grams) 60718.2 [place] Body Weight 120 Body Mass Index (BMI) 18.8 Weight Status Approriate GI Symptoms GI Symptoms None Last BM 03/22 Difficult in: None Skin Integrity/Comment: mere thapa 16 Current %PO Fair (50-74%) Estimated Nutritional Goals BEE in Kcals: Using Current wt Calories/Kcals/Kg 27-32 Kcals Calculated 0694-5935 Protein: Using Current wt Protein g/k-1.2 Protein Calculated 50-60 Fluid: ml 1350-1600ml (1ml/kcal) Nutritional Problem No current Nutrition Prob Problem N/A Intervention/Recommendation Comments 1. Continue with [facility] soft [facility] diet as ordered. Nurses to assist pt with all meals. 2. Monitor PO intake, wt, labs and skin integrity 3. F/U as low risk in 7 days, 04/01, PO check 03/27 Expected Outcomes/Goals Expected Outcomes/Goals 1. PO intake to meet at least 75% of nutritional needs. 2. Wt stability, skin to remain intact, labs to approach WNL.
[2018-04-06] MEDS: Multivitamin Tab PO SCH (09:00)
[2018-04-06] MEDS: Pantoprazole 40 mg EC Tab PO SCH (09:01)
[2018-04-06] MEDS: Atorvastatin Calcium 10 MG TAB PO SCH (21:10)
[2018-04-07] MEDS: Levothyroxine 0.05 Mg Tab PO SCH (06:36)
--- NOTE | 2018-04-07 06:47 | General Progress Note ---
Subjective - Review of Systems Service Date: 04/07/18 Subjective: Awake,alert but confused VS T 97.9 P85 R20 BP 141/80 Objective - Results Result Diagrams: 03/20/18 18:20 03/20/18 18:20 Recent Labs: Laboratory Last Values WBC 7.8 Th/cmm (4.8-10.8) 03/20/18 18:20 RBC 3.82 Mil/cmm (3.80-5.20) 03/20/18 18:20 Hgb 11.9 gm/dL (12-16) L 03/20/18 18:20 Hct 34.9 % (41.0-60) L 03/20/18 18:20 MCV 91.4 fl (81-100) 03/20/18 18:20 MCH 31.0 pg (27.0-31.0) 03/20/18 18:20 MCHC Differential 34.0 pg (28.0-36.0) 03/20/18 18:20 RDW 12.0 % (11.5-20.0) 03/20/18 18:20 Plt Count 347 Th/cmm (150-400) 03/20/18 18:20 MPV 7.5 fl 03/20/18 18:20 Neutrophils % 72.7 % (40.0-80.0) 03/20/18 18:20 Lymphocytes % 18.3 % (20.0-50.0) L 03/20/18 18:20 Monocytes % 8.1 % (2.0-10.0) 03/20/18 18:20 Eosinophils % 0.5 % (0.0-5.0) 03/20/18 18:20 Basophils % 0.4 % (0.0-2.0) 03/20/18 18:20 Sodium 144 mEq/L (136-145) 03/20/18 18:20 Potassium 4.6 mEq/L (3.5-5.1) 03/20/18 18:20 Chloride 107 mEq/L (98-107) 03/20/18 18:20 Carbon Dioxide 29.4 mEq/L (21.0-31.0) 03/20/18 18:20 Anion Gap 12.2 (7.0-16.0) 03/20/18 18:20 BUN 30 mg/dL (7-25) H 03/20/18 18:20 Creatinine 1.2 mg/dL (0.6-1.2) 03/20/18 18:20 Est GFR ( Amer) 57.5 ml/min (>90) 03/20/18 18:20 Est GFR (Non-Af Amer) 47.5 ml/min 03/20/18 18:20 BUN/Creatinine Ratio 25.0 03/20/18 18:20 Glucose 117 mg/dL (70-105) H 03/20/18 18:20 Calcium 9.4 mg/dL (8.6-10.3) 03/20/18 18:20 Phosphorus 4.0 mg/dL (2.5-5.0) 03/20/18 18:20 Magnesium 1.9 mg/dL (1.9-2.7) 03/20/18 18:20 Total Bilirubin 0.5 mg/dL (0.3-1.0) 03/20/18 18:20 AST 23 U/L (13-39) 03/20/18 18:20 ALT 18 U/L (7-52) 03/20/18 18:20 Alkaline Phosphatase 100 U/L (34-104) 03/20/18 18:20 Total Protein 6.3 gm/dL (6.0-8.3) 03/20/18 18:20 Albumin 3.7 gm/dL (3.7-5.3) 03/20/18 18:20 Globulin 2.6 gm/dL 03/20/18 18:20 Albumin/Globulin Ratio 1.4 (1.0-1.8) 03/20/18 18:20 Triglycerides 56 mg/dL (<150) 03/21/18 06:11 Cholesterol 185 mg/dL (<200) 03/21/18 06:11 LDL Cholesterol Direct 112 mg/dL (75-193) 03/21/18 06:11 HDL Cholesterol 58 mg/dL (23-92) 03/21/18 06:11 TSH 0.84 uIU/ml (0.34-5.60) 03/20/18 18:30 - Physical Exam Vitals and I&O: Vital Signs Temp 97.9 F 04/06/18 14:00 Pulse 85 04/06/18 14:00 Resp 20 04/06/18 14:00 BP 141/80 04/06/18 14:00 Pulse Ox 97 04/06/18 14:00 Intake & Output 04/06/18 04/06/18 04/07/18 06:59 18:59 06:59 Intake Total 240 1200 Balance 240 1200 Weight (lbs) 49.895 kg Intake: Oral 240 1200 Other: # Voids 3 4 # Bowel Movements 0 0 Weight Source Bedscale Active Medications: Current Medications Acetaminophen (Tylenol) 650 mg PO Q4H PRN PRN Reason: Mild Pain / Temp above 100 Stop: 05/19/18 21:49 Last Admin: 04/01/18 03:34 Dose: 650 mg Al Hydrox/Mg Hydrox/Simethicone (Maalox) 30 ml PO Q4HR PRN PRN Reason: GI DISTRESS Stop: 05/19/18 21:49 Atorvastatin Calcium (Lipitor) 20 mg PO HS [facility]; Protocol Stop: 05/20/18 20:59 Last Admin: 04/06/18 21:10 Dose: 20 mg Cholecalciferol (Vitamin D3) 5,000 iu PO DAILY [facility] Stop: 05/20/18 08:59 Last Admin: 04/06/18 09:00 Dose: 5,000 iu Folic Acid (Folate) 1 mg PO HS [facility] Stop: 05/20/18 20:59 Last Admin: 04/06/18 21:10 Dose: 1 mg Haloperidol Lactate (Haldol) 1 mg PO BID PRN PRN Reason: AGITATION Stop: 05/31/18 16:02 Last Admin: 04/05/18 15:50 Dose: 1 mg Levothyroxine Sodium (Synthroid) 0.05 mg PO DAILY@0730 [facility] Stop: 05/20/18 07:29 Last Admin: 04/07/18 06:36 Dose: 0.05 mg Magnesium Hydroxide (Milk Of Magnesia) 30 ml PO HS PRN PRN Reason: Constipation Multivitamins/Vitamin C (Theragran) 1 tab PO DAILY [facility] Stop: 05/20/18 08:59 Last Admin: 04/06/18 09:00 Dose: 1 tab Olanzapine (Zyprexa) 2.5 mg PO HS [facility]; Protocol Stop: 06/02/18 20:59 Last Admin: 04/06/18 21:10 Dose: 2.5 mg Pantoprazole Sodium (Protonix) 40 mg PO DAILY [facility] Stop: 05/20/18 08:59 Last Admin: 04/06/18 09:01 Dose: 40 mg Senna (Senna) 17.2 mg PO HS [facility] Stop: 05/20/18 20:59 Last Admin: 04/06/18 21:11 Dose: 17.2 mg Tramadol HCl (Ultram) 50 mg PO BID [facility] Stop: 05/20/18 08:59 Last Admin: 04/06/18 18:00 Dose: Not Given Valproate Sodium (Depakene) 250 mg PO BID [facility]; Protocol Stop: 06/01/18 08:59 Last Admin: 04/06/18 18:00 Dose: 250 mg Zolpidem Tartrate (Ambien) 5 mg PO HS PRN PRN Reason: Insomnia Stop: 05/19/18 23:34 Last Admin: 04/04/18 01:58 Dose: 5 mg General: Alert, Oriented x3, No acute distress HEENT: Atraumatic, PERRLA, EOMI Neck: Supple Cardiovascular: Regular rate, Normal S1, Normal S2 Lungs: Clear to auscultation Abdomen: Bowel sounds Extremities: no Clubbing, no Cyanosis, no Edema Neurological: Normal gait, Normal speech Assessment/Plan - Problem List Patient Problems: All Active Problems AGGRESSION AND AGITATION; 51/50 STATUS (Acute) - Assessment Assessment: Current Active Problems Problem Status Onset AGGRESSION AND AGITATION; 51/50 STATUS Acute psychosis dyslipidemia thyroid disorder dementia Alzheimer's dementia - Plan Plan: continue current treatment Nutritional Asmnt/Malnutr-PDOC - Dietary Evaluation Malnutrition Findings (Please click <Entered> for more info): Nutritional Asmnt/Malnutrition Start: 03/25/18 15: 01 Text: Status: Complete Freq: Protocol: Document 03/25/18 15:01 LCHENG (Rec: 03/25/18 15:15 [email or web address]) Nutritional Asmnt/Malnutrition Patient General Information Nutritional Screening Moderate Risk Diagnosis psychosis Pertinent Medical Hx/Surgical Hx dyslipidemia, throid disorder, ddmentia, alzheimer's, acute kidney injury Subjective Information Pt seen sitting in laine-chair, crying, very confused, not able to communicate. Per EMR, PO intake 50-75%. CLINIC SPECIALIST stated pt is able to eat well, some time PO intake low d/t mental status or sleepy by medication . Pt needs total assist with meals, eats slowly. Current Diet Order/ Nutrition Support [facility] Pertinent Medications lipitor, vit D3, folate, synthroid, theragran, protonix , seroquel, senna Pertinent Labs 03/20 BUN 30, Cr 1.2, glucose 117, albe 3.7 Nutritional Hx/Data Height 1.63 m Height (Calculated Centimeters) 162.6 Current Weight (lbs) 49.895 kg Weight (Calculated Kilograms) 49.9 Weight (Calculated Grams) 82750.2 [place] Body Weight 120 Body Mass Index (BMI) 18.8 Weight Status Approriate GI Symptoms GI Symptoms None Last BM 03/22 Difficult in: None Skin Integrity/Comment: mere thapa 16 Current %PO Fair (50-74%) Estimated Nutritional Goals BEE in Kcals: Using Current wt Calories/Kcals/Kg 27-32 Kcals Calculated 5430-7389 Protein: Using Current wt Protein g/k-1.2 Protein Calculated 50-60 Fluid: ml 1350-1600ml (1ml/kcal) Nutritional Problem No current Nutrition Prob Problem N/A Intervention/Recommendation Comments 1. Continue with [facility] diet as ordered. Nurses to assist pt with all meals. 2. Monitor PO intake, wt, labs and skin integrity 3. F/U as low risk in 7 days, 04/01, PO check 03/27 Expected Outcomes/Goals Expected Outcomes/Goals 1. PO intake to meet at least 75% of nutritional needs. 2. Wt stability, skin to remain intact, labs to approach WNL.
[2018-04-07] MEDS: Pantoprazole 40 mg EC Tab PO SCH (08:40)
[2018-04-07] MEDS: Multivitamin Tab PO SCH (08:40)
[2018-04-07] MEDS: Atorvastatin Calcium 10 MG TAB PO SCH (20:49)
--- NOTE | 2018-04-07 22:19 | Progress Notes ---
DATE: 04/06/2018 The patient was seen and evaluated. SUBJECTIVE: She is a 67-year-old female, brought here from [place], presenting aggressively with history of dementia. Currently on olanzapine, pantoprazole, tramadol, and Depakote. Today, the nursing staff reports that the patient continues to be irritable, easily agitated, and needing redirection. ASSESSMENT AND PLAN: The patient continues to be disorganized, able to tolerate the recent lowering of the Zyprexa for her overall sedation. We will continue with primary psychiatrist's treatment plan and goals as she continues to tolerate medication without complications or side effects of medications. JOB# [id number]
--- NOTE | 2018-04-08 01:32 | Progress Notes ---
DATE: 04/07/2018 SUBJECTIVE: Staff was spoken to. The patient is interviewed. Mood is noted to be irritable. Affect is constricted. The patient's paranoia is resolving. Insight and judgment are noted to be still impaired. Impulse control seems to be limited. Coping skills are noted to be limited. The patient has been having difficult time to cope with the stress. The patient is currently on 2.5 mg of olanzapine at bedtime and he is also receiving 250 mg twice a day of the valproic acid. ASSESSMENT: The patient is still psychotic. PLAN: To increase the olanzapine to 5 mg at bedtime. Encourage the patient to verbalize the concerns rather than to act out. JOB# [id number]
[2018-04-08] MEDS: Levothyroxine 0.05 Mg Tab PO SCH (06:40)
--- NOTE | 2018-04-08 07:08 | General Progress Note ---
Subjective - Review of Systems Service Date: 04/08/18 Subjective: Awake,alert but confused VS T 98.0 P87 R20 BP 143/73 Objective - Results Result Diagrams: 03/20/18 18:20 03/20/18 18:20 Recent Labs: Laboratory Last Values WBC 7.8 Th/cmm (4.8-10.8) 03/20/18 18:20 RBC 3.82 Mil/cmm (3.80-5.20) 03/20/18 18:20 Hgb 11.9 gm/dL (12-16) L 03/20/18 18:20 Hct 34.9 % (41.0-60) L 03/20/18 18:20 MCV 91.4 fl (81-100) 03/20/18 18:20 MCH 31.0 pg (27.0-31.0) 03/20/18 18:20 MCHC Differential 34.0 pg (28.0-36.0) 03/20/18 18:20 RDW 12.0 % (11.5-20.0) 03/20/18 18:20 Plt Count 347 Th/cmm (150-400) 03/20/18 18:20 MPV 7.5 fl 03/20/18 18:20 Neutrophils % 72.7 % (40.0-80.0) 03/20/18 18:20 Lymphocytes % 18.3 % (20.0-50.0) L 03/20/18 18:20 Monocytes % 8.1 % (2.0-10.0) 03/20/18 18:20 Eosinophils % 0.5 % (0.0-5.0) 03/20/18 18:20 Basophils % 0.4 % (0.0-2.0) 03/20/18 18:20 Sodium 144 mEq/L (136-145) 03/20/18 18:20 Potassium 4.6 mEq/L (3.5-5.1) 03/20/18 18:20 Chloride 107 mEq/L (98-107) 03/20/18 18:20 Carbon Dioxide 29.4 mEq/L (21.0-31.0) 03/20/18 18:20 Anion Gap 12.2 (7.0-16.0) 03/20/18 18:20 BUN 30 mg/dL (7-25) H 12/07/18 18:20 Creatinine 1.2 mg/dL (0.6-1.2) 03/20/18 18:20 Est GFR ( Amer) 57.5 ml/min (>90) 03/20/18 18:20 Est GFR (Non-Af Amer) 47.5 ml/min 03/20/18 18:20 BUN/Creatinine Ratio 25.0 03/20/18 18:20 Glucose 117 mg/dL (70-105) H 03/20/18 18:20 Calcium 9.4 mg/dL (8.6-10.3) 03/20/18 18:20 Phosphorus 4.0 mg/dL (2.5-5.0) 03/20/18 18:20 Magnesium 1.9 mg/dL (1.9-2.7) 03/20/18 18:20 Total Bilirubin 0.5 mg/dL (0.3-1.0) 03/20/18 18:20 AST 23 U/L (13-39) 03/20/18 18:20 ALT 18 U/L (7-52) 03/20/18 18:20 Alkaline Phosphatase 100 U/L (34-104) 03/20/18 18:20 Total Protein 6.3 gm/dL (6.0-8.3) 03/20/18 18:20 Albumin 3.7 gm/dL (3.7-5.3) 03/20/18 18:20 Globulin 2.6 gm/dL 03/20/18 18:20 Albumin/Globulin Ratio 1.4 (1.0-1.8) 03/20/18 18:20 Triglycerides 56 mg/dL (<150) 03/21/18 06:11 Cholesterol 185 mg/dL (<200) 03/21/18 06:11 LDL Cholesterol Direct 112 mg/dL (75-193) 03/21/18 06:11 HDL Cholesterol 58 mg/dL (23-92) 03/21/18 06:11 TSH 0.84 uIU/ml (0.34-5.60) 03/20/18 18:30 - Physical Exam Vitals and I&O: Vital Signs Temp 98 F 04/07/18 14:14 Pulse 87 04/07/18 14:14 Resp 20 04/07/18 14:14 BP 143/73 12/25/18 14:14 Pulse Ox 98 04/07/18 14:14 Intake & Output 04/07/18 04/08/18 04/08/18 18:59 06:59 18:59 Intake Total 120 Balance 120 Intake: Oral 120 Other: # Voids 3 2 # Bowel Movements 1 0 Active Medications: Current Medications Acetaminophen (Tylenol) 650 mg PO Q4H PRN PRN Reason: Mild Pain / Temp above 100 Stop: 05/19/18 21:49 Last Admin: 04/01/18 03:34 Dose: 650 mg Al Hydrox/Mg Hydrox/Simethicone (Maalox) 30 ml PO Q4HR PRN PRN Reason: GI DISTRESS Stop: 05/19/18 21:49 Atorvastatin Calcium (Lipitor) 20 mg PO HS [facility] BEDS AT [facility]; Protocol Stop: 05/20/18 20:59 Last Admin: 04/07/18 20:49 Dose: 20 mg Cholecalciferol (Vitamin D3) 5,000 iu PO DAILY [facility] 234 BEDS AT [facility] Stop: 05/20/18 08:59 Last Admin: 04/07/18 08:39 Dose: 5,000 iu Folic Acid (Folate) 1 mg PO HS [facility]S [facility]CLUDE 234 BEDS AT [facility] Stop: 05/20/18 20:59 Last Admin: 04/07/18 20:50 Dose: 1 mg Haloperidol Lactate (Haldol) 1 mg PO BID PRN PRN Reason: AGITATION Stop: 05/31/18 16:02 Last Admin: 04/05/18 15:50 Dose: 1 mg Levothyroxine Sodium (Synthroid) 0.05 mg PO DAILY@0730 [facility]S [facility]CLUDE 234 BEDS AT [facility] Stop: 05/20/18 07:29 Last Admin: 04/08/18 06:40 Dose: 0.05 mg Magnesium Hydroxide (Milk Of Magnesia) 30 ml PO HS PRN PRN Reason: Constipation Multivitamins/Vitamin C (Theragran) 1 tab PO DAILY [facility] 234 BEDS AT [facility] Stop: 05/20/18 08:59 Last Admin: 04/07/18 08:40 Dose: 1 tab Olanzapine (Zyprexa) 5 mg PO HS [facility]CLUDE 234 BEDS AT [facility]; Protocol Stop: 06/06/18 20:59 Pantoprazole Sodium (Protonix) 40 mg PO DAILY [facility] 234 BEDS AT [facility] Stop: 05/20/18 08:59 Last Admin: 04/07/18 08:40 Dose: 40 mg Senna (Senna) 17.2 mg PO [facility] Stop: 05/20/18 20:59 Last Admin: 04/07/18 20:50 Dose: 17.2 mg Tramadol HCl (Ultram) 50 mg PO BID [facility]S [facility]CLUDE 234 BEDS AT [facility] Stop: 05/20/18 08:59 Last Admin: 04/07/18 16:15 Dose: Not Given Valproate Sodium (Depakene) 250 mg PO BID [facility]CLUDE 234 BEDS AT [facility]; Protocol Stop: 06/01/18 08:59 Last Admin: 04/07/18 16:17 Dose: 250 mg Zolpidem Tartrate (Ambien) 5 mg PO HS PRN PRN Reason: Insomnia Stop: 05/19/18 23:34 Last Admin: 04/07/18 20:50 Dose: 5 mg General: Alert, Oriented x3, No acute distress HEENT: Atraumatic, PERRLA, EOMI Neck: Supple Cardiovascular: Regular rate, Normal S1, Normal S2 Lungs: Clear to auscultation Abdomen: Bowel sounds Extremities: no Clubbing, no Cyanosis, no Edema Neurological: Normal gait, Normal speech Assessment/Plan - Problem List Patient Problems: All Active Problems AGGRESSION AND AGITATION; 51/50 STATUS (Acute) - Assessment Assessment: Current Active Problems Problem Status Onset AGGRESSION AND AGITATION; 51/50 STATUS Acute psychosis dyslipidemia thyroid disorder dementia Alzheimer's dementia - Plan Plan: continue current treatment Nutritional Asmnt/Malnutr-PDOC - Dietary Evaluation Malnutrition Findings (Please click <Entered> for more info): Nutritional Asmnt/Malnutrition Start: 03/25/18 15: 01 Text: Status: Complete Freq: Protocol: Document 03/25/18 15:01 LCHENG (Rec: 03/25/18 15:15 [email or web address]) Nutritional Asmnt/Malnutrition Patient General Information Nutritional Screening Moderate Risk Diagnosis psychosis Pertinent Medical Hx/Surgical Hx dyslipidemia, throid disorder, ddmentia, alzheimer's, acute kidney injury Subjective Information Pt seen sitting in laine-chair, crying, very confused, not able to communicate. Per EMR, PO intake 50-75%. COMPENSATION ANALYST stated pt is able to eat well, some time PO intake low d/t mental status or sleepy by medication . Pt needs total assist with meals, eats slowly. Current Diet Order/ Nutrition Support [facility] Pertinent Medications lipitor, vit D3, folate, synthroid, theragran, protonix , seroquel, senna Pertinent Labs 03/20 BUN 30, Cr 1.2, glucose 117, albe 3.7 Nutritional Hx/Data Height 1.63 m Height (Calculated Centimeters) 162.6 Current Weight (lbs) 49.895 kg Weight (Calculated Kilograms) 49.9 Weight (Calculated Grams) 40916.2 Connell Body Weight 120 Body Mass Index (BMI) 18.8 Weight Status Approriate GI Symptoms GI Symptoms None Last BM 03/22 Difficult in: None Skin Integrity/Comment: mere thapa 16 Current %PO Fair (50-74%) Estimated Nutritional Goals BEE in Kcals: Using Current wt Calories/Kcals/Kg 27-32 Kcals Calculated 7863-5834 Protein: Using Current wt Protein g/k-1.2 Protein Calculated 50-60 Fluid: ml 1350-1600ml (1ml/kcal) Nutritional Problem No current Nutrition Prob Problem N/A Intervention/Recommendation Comments 1. Continue with [facility] diet as ordered. Nurses to assist pt with all meals. 2. Monitor PO intake, wt, labs and skin integrity 3. F/U as low risk in 7 days, 04/01, PO check 03/27 Expected Outcomes/Goals Expected Outcomes/Goals 1. PO intake to meet at least 75% of nutritional needs. 2. Wt stability, skin to remain intact, labs to approach WNL.
[2018-04-08] MEDS: Multivitamin Tab PO SCH (09:22)
[2018-04-08] MEDS: Pantoprazole 40 mg EC Tab PO SCH (09:23)
[2018-04-08] MEDS: Atorvastatin Calcium 10 MG TAB PO SCH (20:45)
--- NOTE | 2018-04-08 21:12 | Progress Notes ---
DATE: 04/08/2018 SUBJECTIVE: Staff was spoken to. The patient is interviewed. Mood is noted to be less irritable. The patient has not been banging on the table today. The patient, however, appears to be more alert than before. Insight and judgment at this time are noted to be improving. Impulse control seems to be fair. The patient is currently on 5 mg of the olanzapine and has been able to tolerate the medication. ASSESSMENT: The patient is less irritable. PLAN: To continue the patient with the supportive therapy, encouraged the patient to verbalize the concerns. At this time, we are waiting for placement of this patient. JOB# [id number]
[2018-04-09] MEDS: Levothyroxine 0.05 Mg Tab PO SCH (06:51)
--- NOTE | 2018-04-09 07:13 | General Progress Note ---
Subjective - Review of Systems Service Date: 04/09/18 Subjective: Awake,alert but confused VS T 98.0 P72 R18 BP 120/65 Objective - Results Result Diagrams: 03/20/18 18:20 03/20/18 18:20 Recent Labs: Laboratory Last Values WBC 7.8 Th/cmm (4.8-10.8) 03/20/18 18:20 RBC 3.82 Mil/cmm (3.80-5.20) 03/20/18 18:20 Hgb 11.9 gm/dL (12-16) L 03/20/18 18:20 Hct 34.9 % (41.0-60) L 03/20/18 18:20 MCV 91.4 fl (81-100) 03/20/18 18:20 MCH 31.0 pg (27.0-31.0) 03/20/18 18:20 MCHC Differential 34.0 pg (28.0-36.0) 03/20/18 18:20 RDW 12.0 % (11.5-20.0) 03/20/18 18:20 Plt Count 347 Th/cmm (150-400) 03/20/18 18:20 MPV 7.5 fl 03/20/18 18:20 Neutrophils % 72.7 % (40.0-80.0) 03/20/18 18:20 Lymphocytes % 18.3 % (20.0-50.0) L 03/20/18 18:20 Monocytes % 8.1 % (2.0-10.0) 03/20/18 18:20 Eosinophils % 0.5 % (0.0-5.0) 03/20/18 18:20 Basophils % 0.4 % (0.0-2.0) 03/20/18 18:20 Sodium 144 mEq/L (136-145) 03/20/18 18:20 Potassium 4.6 mEq/L (3.5-5.1) 03/20/18 18:20 Chloride 107 mEq/L (98-107) 03/20/18 18:20 Carbon Dioxide 29.4 mEq/L (21.0-31.0) 03/20/18 18:20 Anion Gap 12.2 (7.0-16.0) 03/20/18 18:20 BUN 30 mg/dL (7-25) H 12/07/18 18:20 Creatinine 1.2 mg/dL (0.6-1.2) 03/20/18 18:20 Est GFR ( Amer) 57.5 ml/min (>90) 03/20/18 18:20 Est GFR (Non-Af Amer) 47.5 ml/min 03/20/18 18:20 BUN/Creatinine Ratio 25.0 03/20/18 18:20 Glucose 117 mg/dL (70-105) H 03/20/18 18:20 Calcium 9.4 mg/dL (8.6-10.3) 03/20/18 18:20 Phosphorus 4.0 mg/dL (2.5-5.0) 03/20/18 18:20 Magnesium 1.9 mg/dL (1.9-2.7) 03/20/18 18:20 Total Bilirubin 0.5 mg/dL (0.3-1.0) 03/20/18 18:20 AST 23 U/L (13-39) 03/20/18 18:20 ALT 18 U/L (7-52) 03/20/18 18:20 Alkaline Phosphatase 100 U/L (34-104) 03/20/18 18:20 Total Protein 6.3 gm/dL (6.0-8.3) 03/20/18 18:20 Albumin 3.7 gm/dL (3.7-5.3) 03/20/18 18:20 Globulin 2.6 gm/dL 03/20/18 18:20 Albumin/Globulin Ratio 1.4 (1.0-1.8) 03/20/18 18:20 Triglycerides 56 mg/dL (<150) 03/21/18 06:11 Cholesterol 185 mg/dL (<200) 03/21/18 06:11 LDL Cholesterol Direct 112 mg/dL (75-193) 03/21/18 06:11 HDL Cholesterol 58 mg/dL (23-92) 03/21/18 06:11 TSH 0.84 uIU/ml (0.34-5.60) 03/20/18 18:30 - Physical Exam Vitals and I&O: Vital Signs Temp 98 F 04/08/18 20:00 Pulse 72 04/08/18 20:00 Resp 18 04/08/18 20:00 BP 120/65 12/26/18 20:00 Pulse Ox 98 04/08/18 20:00 Intake & Output 04/08/18 04/09/18 04/09/18 18:59 06:59 18:59 Intake Total 1200 120 Balance 1200 120 Intake: Oral 1200 120 Other: # Voids 3 # Bowel Movements 1 Active Medications: Current Medications Acetaminophen (Tylenol) 650 mg PO Q4H PRN PRN Reason: Mild Pain / Temp above 100 Stop: 05/19/18 21:49 Last Admin: 04/01/18 03:34 Dose: 650 mg Al Hydrox/Mg Hydrox/Simethicone (Maalox) 30 ml PO Q4HR PRN PRN Reason: GI DISTRESS Stop: 05/19/18 21:49 Atorvastatin Calcium (Lipitor) 20 mg PO HS [facility]; Protocol Stop: 05/20/18 20:59 Last Admin: 04/08/18 20:45 Dose: 20 mg Cholecalciferol (Vitamin D3) 5,000 iu PO DAILY [facility] Stop: 05/20/18 08:59 Last Admin: 04/08/18 09:21 Dose: 5,000 iu Folic Acid (Folate) 1 mg PO HS [facility] Stop: 05/20/18 20:59 Last Admin: 04/08/18 20:45 Dose: 1 mg Haloperidol Lactate (Haldol) 1 mg PO BID PRN PRN Reason: AGITATION Stop: 05/31/18 16:02 Last Admin: 04/05/18 15:50 Dose: 1 mg Levothyroxine Sodium (Synthroid) 0.05 mg PO DAILY@0730 [facility] Stop: 05/20/18 07:29 Last Admin: 04/09/18 06:51 Dose: 0.05 mg Magnesium Hydroxide (Milk Of Magnesia) 30 ml PO HS PRN PRN Reason: Constipation Multivitamins/Vitamin C (Theragran) 1 tab PO DAILY [facility] Stop: 05/20/18 08:59 Last Admin: 04/08/18 09:22 Dose: 1 tab Olanzapine (Zyprexa) 5 mg PO HS [facility]; Protocol Stop: 06/06/18 20:59 Last Admin: 04/08/18 20:45 Dose: 5 mg Pantoprazole Sodium (Protonix) 40 mg PO DAILY [facility] Stop: 05/20/18 08:59 Last Admin: 04/08/18 09:23 Dose: 40 mg Senna (Senna) 17.2 mg PO HS [facility] Stop: 05/20/18 20:59 Last Admin: 04/08/18 20:45 Dose: 17.2 mg Tramadol HCl (Ultram) 50 mg PO BID [facility] Stop: 05/20/18 08:59 Last Admin: 04/08/18 17:12 Dose: Not Given Valproate Sodium (Depakene) 250 mg PO BID [facility]; Protocol Stop: 06/01/18 08:59 Last Admin: 04/08/18 17:12 Dose: Not Given Zolpidem Tartrate (Ambien) 5 mg PO HS PRN PRN Reason: Insomnia Stop: 05/19/18 23:34 Last Admin: 04/08/18 20:46 Dose: 5 mg General: Alert, Oriented x3, No acute distress HEENT: Atraumatic, PERRLA, EOMI Neck: Supple Cardiovascular: Regular rate, Normal S1, Normal S2 Lungs: Clear to auscultation Abdomen: Bowel sounds Extremities: no Clubbing, no Cyanosis, no Edema Neurological: Normal gait, Normal speech Assessment/Plan - Problem List Patient Problems: All Active Problems AGGRESSION AND AGITATION; 51/50 STATUS (Acute) - Assessment Assessment: Current Active Problems Problem Status Onset AGGRESSION AND AGITATION; 51/50 STATUS Acute psychosis dyslipidemia thyroid disorder dementia Alzheimer's dementia - Plan Plan: continue current treatment Nutritional Asmnt/Malnutr-PDOC - Dietary Evaluation Malnutrition Findings (Please click <Entered> for more info): Nutritional Asmnt/Malnutrition Start: 03/25/18 15: 01 Text: Status: Complete Freq: Protocol: Document 03/25/18 15:01 LCHENG (Rec: 03/25/18 15:15 [email or web address]) Nutritional Asmnt/Malnutrition Patient General Information Nutritional Screening Moderate Risk Diagnosis psychosis Pertinent Medical Hx/Surgical Hx dyslipidemia, throid disorder, ddmentia, alzheimer's, acute kidney injury Subjective Information Pt seen sitting in laine-chair, crying, very confused, not able to communicate. Per EMR, PO intake 50-75%. I&C TECH stated pt is able to eat well, some time PO intake low d/t mental status or sleepy by medication . Pt needs total assist with meals, eats slowly. Current Diet Order/ Nutrition Support [facility] Pertinent Medications lipitor, vit D3, folate, synthroid, theragran, protonix , seroquel, senna Pertinent Labs 03/20 BUN 30, Cr 1.2, glucose 117, albe 3.7 Nutritional Hx/Data Height 1.63 m Height (Calculated Centimeters) 162.6 Current Weight (lbs) 49.895 kg Weight (Calculated Kilograms) 49.9 Weight (Calculated Grams) 67265.2 [place] Body Weight 120 Body Mass Index (BMI) 18.8 Weight Status Approriate GI Symptoms GI Symptoms None Last BM 03/22 Difficult in: None Skin Integrity/Comment: mere thapa 16 Current %PO Fair (50-74%) Estimated Nutritional Goals BEE in Kcals: Using Current wt Calories/Kcals/Kg 27-32 Kcals Calculated 6295-0150 Protein: Using Current wt Protein g/k-1.2 Protein Calculated 50-60 Fluid: ml 1350-1600ml (1ml/kcal) Nutritional Problem No current Nutrition Prob Problem N/A Intervention/Recommendation Comments 1. Continue with [facility] soft ground diet as ordered. Nurses to assist pt with all meals. 2. Monitor PO intake, wt, labs and skin integrity 3. F/U as low risk in 7 days, 04/01, PO check 03/27 Expected Outcomes/Goals Expected Outcomes/Goals 1. PO intake to meet at least 75% of nutritional needs. 2. Wt stability, skin to remain intact, labs to approach WNL.
[2018-04-09] MEDS: Multivitamin Tab PO SCH (09:48)
[2018-04-09] MEDS: Pantoprazole 40 mg EC Tab PO SCH (09:48)
[2018-04-09] MEDS: Atorvastatin Calcium 10 MG TAB PO SCH (20:45)
--- NOTE | 2018-04-09 23:05 | Progress Notes ---
DATE: 04/09/2018 PSYCHIATRIC PROGRESS NOTE SUBJECTIVE: Staff was spoken to. The patient is interviewed. Mood is noted to be irritable. Affect is constricted. The patient's impulsivity is coming under control. The patient is not banging on the GD chair. The patient has not been making much sense, but the aggressive behavior seems to be coming under control. ASSESSMENT: The patient is still psychotic. PLAN: Continue the patient with supportive therapy. Encouraged the patient to verbalize the concerns rather than to act out. [facility]# [id number]
[2018-04-10] MEDS: Levothyroxine 0.05 Mg Tab PO SCH (06:55)
--- NOTE | 2018-04-10 07:23 | General Progress Note ---
Subjective - Review of Systems Service Date: 04/10/18 Subjective: Awake,alert but confused VS T 98.0 P72 R18 BP 120/65 Objective - Results Result Diagrams: 03/20/18 18:20 03/20/18 18:20 Recent Labs: Laboratory Last Values WBC 7.8 Th/cmm (4.8-10.8) 03/20/18 18:20 RBC 3.82 Mil/cmm (3.80-5.20) 03/20/18 18:20 Hgb 11.9 gm/dL (12-16) L 03/20/18 18:20 Hct 34.9 % (41.0-60) L 03/20/18 18:20 MCV 91.4 fl (81-100) 03/20/18 18:20 MCH 31.0 pg (27.0-31.0) 03/20/18 18:20 MCHC Differential 34.0 pg (28.0-36.0) 03/20/18 18:20 RDW 12.0 % (11.5-20.0) 03/20/18 18:20 Plt Count 347 Th/cmm (150-400) 03/20/18 18:20 MPV 7.5 fl 03/20/18 18:20 Neutrophils % 72.7 % (40.0-80.0) 03/20/18 18:20 Lymphocytes % 18.3 % (20.0-50.0) L 03/20/18 18:20 Monocytes % 8.1 % (2.0-10.0) 03/20/18 18:20 Eosinophils % 0.5 % (0.0-5.0) 03/20/18 18:20 Basophils % 0.4 % (0.0-2.0) 03/20/18 18:20 Sodium 144 mEq/L (136-145) 03/20/18 18:20 Potassium 4.6 mEq/L (3.5-5.1) 03/20/18 18:20 Chloride 107 mEq/L (98-107) 03/20/18 18:20 Carbon Dioxide 29.4 mEq/L (21.0-31.0) 03/20/18 18:20 Anion Gap 12.2 (7.0-16.0) 03/20/18 18:20 BUN 30 mg/dL (7-25) H 12/07/18 18:20 Creatinine 1.2 mg/dL (0.6-1.2) 03/20/18 18:20 Est GFR ( Amer) 57.5 ml/min (>90) 03/20/18 18:20 Est GFR (Non-Af Amer) 47.5 ml/min 03/20/18 18:20 BUN/Creatinine Ratio 25.0 03/20/18 18:20 Glucose 117 mg/dL (70-105) H 03/20/18 18:20 Calcium 9.4 mg/dL (8.6-10.3) 03/20/18 18:20 Phosphorus 4.0 mg/dL (2.5-5.0) 03/20/18 18:20 Magnesium 1.9 mg/dL (1.9-2.7) 03/20/18 18:20 Total Bilirubin 0.5 mg/dL (0.3-1.0) 03/20/18 18:20 AST 23 U/L (13-39) 03/20/18 18:20 ALT 18 U/L (7-52) 03/20/18 18:20 Alkaline Phosphatase 100 U/L (34-104) 03/20/18 18:20 Total Protein 6.3 gm/dL (6.0-8.3) 03/20/18 18:20 Albumin 3.7 gm/dL (3.7-5.3) 03/20/18 18:20 Globulin 2.6 gm/dL 03/20/18 18:20 Albumin/Globulin Ratio 1.4 (1.0-1.8) 03/20/18 18:20 Triglycerides 56 mg/dL (<150) 03/21/18 06:11 Cholesterol 185 mg/dL (<200) 03/21/18 06:11 LDL Cholesterol Direct 112 mg/dL (75-193) 03/21/18 06:11 HDL Cholesterol 58 mg/dL (23-92) 03/21/18 06:11 TSH 0.84 uIU/ml (0.34-5.60) 03/20/18 18:30 - Physical Exam Vitals and I&O: Vital Signs Temp 0 F 04/10/18 06:23 Pulse 72 04/08/18 20:00 Resp 18 04/08/18 20:00 BP 120/65 12/26/18 20:00 Pulse Ox 98 04/08/18 20:00 Intake & Output 04/09/18 04/10/18 04/10/18 18:59 06:59 18:59 Intake Total 1300 120 Balance 1300 120 Weight (lbs) 49.895 kg Intake: Oral 1300 120 Other: # Voids 2 3 # Bowel Movements 0 0 Weight Source Bedscale Active Medications: Current Medications Acetaminophen (Tylenol) 650 mg PO Q4H PRN PRN Reason: Mild Pain / Temp above 100 Stop: 05/19/18 21:49 Last Admin: 04/09/18 23:45 Dose: 650 mg Al Hydrox/Mg Hydrox/Simethicone (Maalox) 30 ml PO Q4HR PRN PRN Reason: GI DISTRESS Stop: 05/19/18 21:49 Atorvastatin Calcium (Lipitor) 20 mg PO HS [facility]; Protocol Stop: 05/20/18 20:59 Last Admin: 04/09/18 20:45 Dose: 20 mg Cholecalciferol (Vitamin D3) 5,000 iu PO DAILY [facility] Stop: 05/20/18 08:59 Last Admin: 04/09/18 09:47 Dose: 5,000 iu Folic Acid (Folate) 1 mg PO HS [facility] Stop: 05/20/18 20:59 Last Admin: 04/09/18 20:44 Dose: 1 mg Haloperidol Lactate (Haldol) 1 mg PO BID PRN PRN Reason: AGITATION Stop: 05/31/18 16:02 Last Admin: 04/05/18 15:50 Dose: 1 mg Levothyroxine Sodium (Synthroid) 0.05 mg PO DAILY@0730 [facility] Stop: 05/20/18 07:29 Last Admin: 04/10/18 06:55 Dose: 0.05 mg Magnesium Hydroxide (Milk Of Magnesia) 30 ml PO HS PRN PRN Reason: Constipation Multivitamins/Vitamin C (Theragran) 1 tab PO DAILY [facility] Stop: 05/20/18 08:59 Last Admin: 04/09/18 09:48 Dose: 1 tab Olanzapine (Zyprexa) 5 mg PO HS [facility]; Protocol Stop: 06/06/18 20:59 Last Admin: 04/09/18 20:44 Dose: 5 mg Pantoprazole Sodium (Protonix) 40 mg PO DAILY [facility] Stop: 05/20/18 08:59 Last Admin: 04/09/18 09:48 Dose: 40 mg Senna (Senna) 17.2 mg PO HS [facility] Stop: 05/20/18 20:59 Last Admin: 04/09/18 20:45 Dose: 17.2 mg Tramadol HCl (Ultram) 50 mg PO BID [facility] Stop: 05/20/18 08:59 Last Admin: 04/09/18 17:14 Dose: 50 mg Valproate Sodium (Depakene) 250 mg PO BID [facility]; Protocol Stop: 06/01/18 08:59 Last Admin: 04/09/18 17:14 Dose: 250 mg Zolpidem Tartrate (Ambien) 5 mg PO HS PRN PRN Reason: Insomnia Stop: 05/19/18 23:34 Last Admin: 04/09/18 21:24 Dose: 5 mg General: Alert, Oriented x3, No acute distress HEENT: Atraumatic, PERRLA, EOMI Neck: Supple Cardiovascular: Regular rate, Normal S1, Normal S2 Lungs: Clear to auscultation Abdomen: Bowel sounds Extremities: no Clubbing, no Cyanosis, no Edema Neurological: Normal gait, Normal speech Assessment/Plan - Problem List Patient Problems: All Active Problems AGGRESSION AND AGITATION; 51/50 STATUS (Acute) - Assessment Assessment: Current Active Problems Problem Status Onset AGGRESSION AND AGITATION; 51/50 STATUS Acute psychosis dyslipidemia thyroid disorder dementia Alzheimer's dementia - Plan Plan: continue current treatment Nutritional Asmnt/Malnutr-PDOC - Dietary Evaluation Malnutrition Findings (Please click <Entered> for more info): Nutritional Asmnt/Malnutrition Start: 03/25/18 15: 01 Text: Status: Complete Freq: Protocol: Document 03/25/18 15:01 LCHENG (Rec: 03/25/18 15:15 [email or web address] [email or web address]) Nutritional Asmnt/Malnutrition Patient General Information Nutritional Screening Moderate Risk Diagnosis psychosis Pertinent Medical Hx/Surgical Hx dyslipidemia, throid disorder, ddmentia, alzheimer's, acute kidney injury Subjective Information Pt seen sitting in laine-chair, crying, very confused, not able to communicate. Per EMR, PO intake 50-75%. GROUP COUNSELOR stated pt is able to eat well, some time PO intake low d/t mental status or sleepy by medication . Pt needs total assist with meals, eats slowly. Current Diet Order/ Nutrition Support [facility] Pertinent Medications lipitor, vit D3, folate, synthroid, theragran, protonix , seroquel, senna Pertinent Labs 03/20 BUN 30, Cr 1.2, glucose 117, albe 3.7 Nutritional Hx/Data Height 1.63 m Height (Calculated Centimeters) 162.6 Current Weight (lbs) 49.895 kg Weight (Calculated Kilograms) 49.9 Weight (Calculated Grams) 66625.2 [place] Body Weight 120 Body Mass Index (BMI) 18.8 Weight Status Approriate GI Symptoms GI Symptoms None Last BM 03/22 Difficult in: None Skin Integrity/Comment: mere thapa 16 Current %PO Fair (50-74%) Estimated Nutritional Goals BEE in Kcals: Using Current wt Calories/Kcals/Kg 27-32 Kcals Calculated 4990-9855 Protein: Using Current wt Protein g/k-1.2 Protein Calculated 50-60 Fluid: ml 1350-1600ml (1ml/kcal) Nutritional Problem No current Nutrition Prob Problem N/A Intervention/Recommendation Comments 1. Continue with [facility] soft [facility] diet as ordered. Nurses to assist pt with all meals. 2. Monitor PO intake, wt, labs and skin integrity 3. F/U as low risk in 7 days, 04/01, PO check 03/27 Expected Outcomes/Goals Expected Outcomes/Goals 1. PO intake to meet at least 75% of nutritional needs. 2. Wt stability, skin to remain intact, labs to approach WNL.
[2018-04-10] MEDS: Multivitamin Tab PO SCH (09:20)
[2018-04-10] MEDS: Pantoprazole 40 mg EC Tab PO SCH (09:21)
--- NOTE | 2018-04-10 09:24 | Progress Notes ---
DATE: 04/10/2018 PSYCHIATRIC PROGRESS NOTE SUBJECTIVE: Staff was spoken to. The patient is interviewed. Mood is noted to be less irritable. Affect is appropriate. Not suicidal, not homicidal. Insight and judgment at this time are noted to be improving. Impulse control is noted to be fair. Coping skills are noted to be very fair. The patient, however, has been still responding to internal stimuli. Staff have been spoken to and the patient has been finally discharged to the [facility] in [place]. The patient is going to be continued with the current medications and she is going to be followed up with the psychiatrist covering the facility. JOB# [id number]
== END 2018-04-10 14:45 | DRG 885 ==
LOC: ER 17:25 → GERO 19:35
PROVIDERS: ADMIT Psychiatry & Neurology Psychiatry; ATTEND Psychiatry & Neurology Psychiatry
DX: F29 Unspecified psychosis not due to a substance or known physiological condition (principal); F02.81 Dementia in other diseases classified elsewhere, unspecified severity, with behavioral disturbance; G30.9 Alzheimer's disease, unspecified; E78.5 Hyperlipidemia, unspecified; E07.9 Disorder of thyroid, unspecified; F63.9 Impulse disorder, unspecified
CPT/HCPCS: 36415-UA; 80053-TC; 80061-TC; 83036-90; 83735-TC; 84100-TC; 84443-TC; 85025-TC; G0410; J1630; J2060; Z7610